=== PATIENT | female | born 1970 | race Caucasian/White ===

== ENCOUNTER → 2023-11-13 08:57 | Outpatient (REF) | payer BC, SELFPAY | LOC: RCS 08:57 | PROVIDERS: ATTENDING PHYSICIAN Internal Medicine | DX: I10 Essential (primary) hypertension (principal); R06.02 Shortness of breath | CPT/HCPCS: 93306 ==

== ENCOUNTER → 2023-11-18 09:03 | Outpatient (REF) | payer BC, SELFPAY | LOC: RSP 09:03 | PROVIDERS: ATTENDING PHYSICIAN Internal Medicine | DX: R06.02 Shortness of breath (principal) | CPT/HCPCS: 94727; 94729; 88738; 94010 ==

== ENCOUNTER → 2023-12-31 11:10 | Outpatient (REF) | payer BC, SELFPAY | LOC: RAD 11:10 | PROVIDERS: ATTENDING PHYSICIAN Obstetrics & Gynecology; FAMILY PHYSICIAN Internal Medicine | DX: N83.8 Other noninflammatory disorders of ovary, fallopian tube and broad ligament (principal); K46.9 Unspecified abdominal hernia without obstruction or gangrene | CPT/HCPCS: 74177; Q9967 ==

== ENCOUNTER → 2024-01-01 08:25 | Outpatient (REF) | payer BC, SELFPAY ==
[2024-01-01 09:18] LABS: % Basophils 0.5 % (0-2); % Eosinophils 2.7 % (0-6); % Immature Granulocytes 0.4 % (0-0.5); % Monocytes 7.6 % (1.7-9.3); % Neutrophils 60.8 % (42.2-75.2); Absolute Eosinophils 0.2 10^3/uL (0-0.7); Absolute Lymphocytes 2.2 10^3/uL (1.2-3.4); Absolute Monocytes 0.6 10^3/uL (0.1-0.6); Absolute Neutrophils 4.7 10^3/uL (1.4-6.5); Hematocrit 40.6 % (37.0-47.0); Hemoglobin 13.6 g/dL (12.0-16.0); Mean Corp Hgb Conc. 33.5 g/dL (33.0-37.0); Mean Corpuscular Hgb 30.2 pg (27.0-31.0); Mean Corpuscular Volume 90.2 fL (81.0-99.0); Mean Platelet Volume 10.4 fL (7.4-10.4); Nucleated Red Blood Cells % 0 %; Platelet Count 197 10^3/uL (130-400); Red Cell Dist. Width 13.1 % (11.5-14.5); White Blood Cell Count 7.8 10^3/uL (4.8-10.8)
[2024-01-01 09:27] LABS: Urine Albumin Trace (Neg - Trace); Urine Bilirubin Negative (Negative); Urine Character Clear (Clear); Urine Color Yellow; Urine Glucose Negative (Negative); Urine Ketone Negative (Negative); Urine Leukocyte 1+ (Negative); Urine Nitrite Negative (Negative); Urine Occult Blood 2+ (Negative); Urine Urobilinogen Negative (Neg - 1+)
[2024-01-01 09:41] LABS: Urine Squamous Cell 16-20 /LPF (Few)
[2024-01-01 09:43] LABS: Urine Bacteria Few (Negative); Urine White Cell 16-20 /HPF (0-5)
[2024-01-01 09:59] LABS: ALT (SGPT) 17 U/L (0-35); AST (SGOT) 22 U/L (14-36); Alkaline Phosphatase 158 U/L (38-126); Blood Urea Nitrogen 18 mg/dl (7-17); Calcium 9.6 mg/dl (8.4-10.2); Carbon Dioxide 28 mmol/L (22-30); Chloride 107 mmol/L (98-107); Glucose 131 mg/dl (70-99); Potassium 4.1 mmol/L (3.5-5.1); Sodium 140 mmol/L (135-145); Total Bilirubin 0.3 mg/dl (0.2-1.3); Total Protein 6.8 g/dl (6.3-8.2); eGFR > 60.00
== END ==
LOC: REG 08:25
PROVIDERS: ATTENDING PHYSICIAN Internal Medicine
DX: N20.0 Calculus of kidney (principal); N13.30 Unspecified hydronephrosis
CPT/HCPCS: 36415; 80053; 81003; 81015; 85025; 87086

== ENCOUNTER 2024-01-08 05:20 | Inpatient (IN) | payer BC, SELFPAY ==
[2024-01-07 22:42] VITALS: BP 180/114
[2024-01-07 22:59] LABS: % Basophils 0.4 % (0-2); % Eosinophils 1.3 % (0-6); % Immature Granulocytes 0.3 % (0-0.5); % Lymphocytes 12.7 % (20.5-51.1); % Monocytes 5.4 % (1.7-9.3); % Neutrophils 79.9 % (42.2-75.2); Absolute Basophils 0.1 10^3/uL (0-0.2); Absolute Eosinophils 0.2 10^3/uL (0-0.7); Absolute Lymphocytes 1.6 10^3/uL (1.2-3.4); Absolute Monocytes 0.7 10^3/uL (0.1-0.6); Absolute Neutrophils 10.1 10^3/uL (1.4-6.5); Hematocrit 37.7 % (37.0-47.0); Hemoglobin 13.5 g/dL (12.0-16.0); Mean Corp Hgb Conc. 35.8 g/dL (33.0-37.0); Mean Corpuscular Hgb 30.3 pg (27.0-31.0); Mean Corpuscular Volume 84.5 fL (81.0-99.0); Nucleated Red Blood Cells % 0 %; Platelet Count 219 10^3/uL (130-400); Red Blood Cell Count 4.46 10^6/uL (4.20-5.40); Red Cell Dist. Width 12.8 % (11.5-14.5); White Blood Cell Count 12.6 10^3/uL (4.8-10.8)
[2024-01-07 23:26] LABS: ALT (SGPT) 22 U/L (0-35); AST (SGOT) 27 U/L (14-36); Albumin 4.5 g/dl (3.5-5.0); Alkaline Phosphatase 127 U/L (38-126); Blood Urea Nitrogen 18 mg/dl (7-17); Calcium 9.5 mg/dl (8.4-10.2); Carbon Dioxide 25 mmol/L (22-30); Chloride 104 mmol/L (98-107); Glucose 163 mg/dl (70-99); Sodium 136 mmol/L (135-145); Total Bilirubin 0.7 mg/dl (0.2-1.3); Total Protein 7.5 g/dl (6.3-8.2); eGFR > 60.00
--- NOTE | 2024-01-08 00:22 | ED.GENMED ---
History of Present Illness
<NELSY Perez - Last Filed: 01/08/24 00:41>
General
Chief Complaint: Abdominal Pain
Source: patient
Exam Limitations: none
Time Seen by Provider: 01/07/24 23:19
Nursing documentation reviewed up to this point in time: agreed with
Travel History
Have you had any contact with someone who has COVID-19?: No
Do you have any symptoms of coronavirus? Fever > 100 degrees, chills, cough, shortness of breath, sore throat, loss of taste or smell, muscle aches, or headache?: No
History of Present Illness
History of Present Illness:
This is a 53 year old female with history of HTN, DM, Hypothyroid, endometriosis who presents to the ED with complaint of RUQ abdominal pain x1 day. Patient reports intermittent sharp RUQ abdominal pain that radiates to epigastric pain. She also
reports chills and a fever tmax 100.6 degrees F PO taken at home. She has associated mild nausea, no vomiting or diarrhea. She has a known endometrioma on R ovary that is being monitored for several years and is known to be increasing in size. She
had a recent abdomen/pelvis CT n 12/31/23 that should an incidental 1.9 x 1.6cm calculus at the right ureteropelvic junction causing severe right hydronephrosis. She was seen by urologist on Wednesday and was given Ciprofloxacin to take prior to
scheduled procedure next week. Today, her RUQ abdominal pain, fever/chills, and nausea began prompting her to come in. She denies SOB, CP, headache, urinary symptoms. LMP was 2 years ago (menopause). Last BM was yesterday.
Past History
<NELSY Perez - Last Filed: 01/08/24 00:41>
Past History
ED Past Medical History: HTN, NIDDM and Hypothyroidism
ED Past Surgical History: None
Social History
Tobacco: Non-smoker
Alcohol: None
Drug: None
Living: with family
Employment: Employed
Review of Systems
<NELSY Perez - Last Filed: 01/08/24 00:41>
Review of Systems
Allergies reviewed?: Yes
All Other Systems: Not applicable
Constitutional: Reports fever (100.6 degree F PO) and fatigue
EENT: Reports no symptoms
Respiratory: Reports no symptoms
Cardiac: Reports no symptoms
ABD/GI: Reports abdominal pain (RUQ) and nausea
: Reports no symptoms
Musculoskeletal: Reports no symptoms
Skin: Reports no symptoms
Neurological: Reports no symptoms
Endocrine: Reports no symptoms
Hematologic/Lymphatic: Reports no symptoms
Psychiatric: Reports no symptoms
Phy Exam
<NELSY Perez - Last Filed: 01/08/24 00:41>
General Physical Exam
General Presentation: well appearing and no apparent distress
General Skin: warm and dry
General Habitus: normal
General Mental: alert
General Hydration: appears well hydrated
ENT Exam
ENT Exam: EOMI, pharynx normal, neck supple and normocephalic
Eye Exam
Eye Exam: PERRL, cornea clear and conjunctiva normal
Cardiovascular Exam
Cardiovascular Exam: regular rate/rhythm, no edema, no murmur and normal peripheral pulses
Pulmonary Exam
Pulmonary Exam: lungs clear, no respiratory distress, no rales, no crackles, no rhonchi, no stridor, no wheezing and no cough
Gastrointestinal Exam
Gastrointestinal Exam: normal bowel sounds, soft, no organomegaly, no pulsatile mass, non distended, no cva tenderness, surgical scar and other (Umbilical hernia )
Palpation: right upper quadrant: Moderate tenderness
Auscultation of Abdomen: normal
Neurological Exam
Neurological Exam: alert, oriented x3, no motor deficits and speech normal
Musculoskeletal Exam
Musculoskeletal Exam: full ROM and no edema
Skin Exam
Skin Exam: normal color, warm/dry, no rash and no petechia
Psychiatric Exam
Psychiatric Exam: normal mood/affect
Course
<NELSY ePrez - Last Filed: 01/08/24 00:41>
Orders/Labs/Results
Orders:
Orders
01/07/24 22:48
Urinalysis Reflex To Culture Urgent
Date Specimen was Collected: 01/07/24
Time Specimen was Collected: 22:48
01/07/24 22:53
Complete Blood Count/With Diff Urgent
Comprehensive Metabolic Panel Urgent
Lipase Urgent
Comment: ADD ON
01/08/24 00:09
Add On- LAB Urgent
Tests Added?: lipase
01/08/24 00:16
Urine Microscopic Reflex Cult Urgent
Urine Culture Urgent
LANA Source: U
Specimen Description:
Date Specimen was Collected: 01/07/24
Time Specimen was Collected: 22:48
01/08/24 00:20
0.9% Sodium Chloride 1000 ml [Nss] 1,000 ml IV BOLUS
HYDROmorphone [Dilaudid] 1 mg IV NOW STA
Ondansetron Injectable [Zofran] 4 mg IV NOW STA
01/08/24 00:38
Lactic Acid Urgent
Blood Culture Q30M
LANA Source: Blood/Venous
Specimen Description:
01/08/24 00:41
Blood Culture Q30M
LANA Source: Blood/Venous
Specimen Description:
01/08/24 01:27
CT Abd/pelvis W Iv Cont Urgent
Comment:
Reason For Exam: RUQ, R lat flank pain w fever
Abnormal Lab Results
01/07/24 01/08/24
22:53 00:16
WBC 12.6 H 10^3/uL
(4.8-10.8)
Absolute Neuts (auto) 10.1 H 10^3/uL
(1.4-6.5)
Absolute Monos (auto) 0.7 H 10^3/uL
(0.1-0.6)
Neutrophils % 79.9 H %
(42.2-75.2)
Lymphocytes % 12.7 L %
(20.5-51.1)
BUN 18 H mg/dl
(7-17)
Glucose 163 H mg/dl
(70-99)
Alkaline Phosphatase 127 H U/L
(38-126)
Ur Occult Blood Reflex 2+ A
(Negative)
Leukocyte Esterase Rfl Trace A
(Negative)
Urine RBC 11-15 A /HPF
(0-2)
Urine WBC (Reflex) 30-40 A /HPF
(0-5)
Urine Bacteria (Reflex) Few A
(Negative)
01/07/24 22:53
01/07/24 22:53
Vital Signs
Initial and Last Documented VS:
Initial Vital Signs
Temp Pulse Resp BP Pulse Ox
99.5 F 110 18 180/114 98
01/07/24 22:42 01/07/24 22:42 01/07/24 22:42 01/07/24 22:42 01/07/24 22:42
Last Documented Vital Signs
Temp Pulse Resp BP Pulse Ox
99.5 F 110 18 180/114 98
01/07/24 22:42 01/07/24 22:42 01/07/24 22:42 01/07/24 22:42 01/07/24 22:42
Maureenlt;Zofia Dallas DO - Last Filed: 01/08/24 04:06>
Orders/Labs/Results
Orders:
Orders
01/07/24 22:48
Urinalysis Reflex To Culture Urgent
Date Specimen was Collected: 01/07/24
Time Specimen was Collected: 22:48
01/07/24 22:53
Complete Blood Count/With Diff Urgent
Comprehensive Metabolic Panel Urgent
Lipase Urgent
Comment: ADD ON
01/08/24 00:09
Add On- LAB Urgent
Tests Added?: lipase
01/08/24 00:16
Urine Microscopic Reflex Cult Urgent
Urine Culture Urgent
LANA Source: U
Specimen Description:
Date Specimen was Collected: 01/07/24
Time Specimen was Collected: 22:48
01/08/24 00:20
0.9% Sodium Chloride 1000 ml [Nss] 1,000 ml IV BOLUS
HYDROmorphone [Dilaudid] 1 mg IV NOW STA
Ondansetron Injectable [Zofran] 4 mg IV NOW STA
01/08/24 00:38
Lactic Acid Urgent
Blood Culture Q30M
LANA Source: Blood/Venous
Specimen Description:
01/08/24 00:41
Blood Culture Q30M
LANA Source: Blood/Venous
Specimen Description:
01/08/24 01:27
CT Abd/pelvis W Iv Cont Urgent
Comment:
Reason For Exam: RUQ, R lat flank pain w fever
Abnormal Lab Results
01/07/24 01/08/24
22:53 00:16
WBC 12.6 H 10^3/uL
(4.8-10.8)
Absolute Neuts (auto) 10.1 H 10^3/uL
(1.4-6.5)
Absolute Monos (auto) 0.7 H 10^3/uL
(0.1-0.6)
Neutrophils % 79.9 H %
(42.2-75.2)
Lymphocytes % 12.7 L %
(20.5-51.1)
BUN 18 H mg/dl
(7-17)
Glucose 163 H mg/dl
(70-99)
Alkaline Phosphatase 127 H U/L
(38-126)
Ur Occult Blood Reflex 2+ A
(Negative)
Leukocyte Esterase Rfl Trace A
(Negative)
Urine RBC 11-15 A /HPF
(0-2)
Urine WBC (Reflex) 30-40 A /HPF
(0-5)
Urine Bacteria (Reflex) Few A
(Negative)
01/07/24 22:53
01/07/24 22:53
Vital Signs
Initial and Last Documented VS:
Initial Vital Signs
Temp Pulse Resp BP Pulse Ox
99.5 F 110 18 180/114 98
01/07/24 22:42 01/07/24 22:42 01/07/24 22:42 01/07/24 22:42 01/07/24 22:42
Last Documented Vital Signs
Temp Pulse Resp BP Pulse Ox
99.5 F 110 18 180/114 98
01/07/24 22:42 01/07/24 22:42 01/07/24 22:42 01/07/24 22:42 01/07/24 22:42
Maureenlt;NELSY Perez - Last Filed: 01/08/24 00:41>
MDM/Problems Addressed
Differential Diagnosis Includes:
Hydronephrosis secondary to calculus, pyelonephritis, cholecystitis, pancreatitis, appendicitis, ovarian cyst rupture, endometrioma
Cholecystitis considered due to RUQ pain, fever, and elevated WBC. However, she does not have a known history of gallstones. Pancreatitis considered for similar reasons. Appendicitis considered due to abdominal pain and fever, however pain is more
upper right rather than lower right. Ovarian cyst rupture considered but less likely. Endometrioma seen on CT scan and has been being monitored for years, which is not typical to cause sudden onset of abdominal pain. I suspect pain is due to
hydronephrosis secondary to 1.9 x 1.6cm calculus seen on the right kidney. Will obtain lipase and abdomen/pelvis CT for further evaluation.
<Zofia Dallas DO - Last Filed: 01/08/24 04:06>
*Radiology
Radiology exam reviewed: radiology read reviewed
*Pulse Oximetry
Patient hypoxic: no
*Critical Care Note
Total Time (30-74mins, 75-104mins- exclusive of procedures): Not Applicable
ED Attending Note
<NELSY Perez - Last Filed: 01/08/24 00:41>
-
Portions of this chart may have been created with voice recognition software.� Occasional wrong word or��sound alike� substitutions may have occurred due to the inherent limitations of voice recognition software.
<Zofia Dallas DO - Last Filed: 01/08/24 04:06>
ED Attending Note
Patient seen and examined by attending physician: Yes
I performed the substantive portion of visit, reviewed & personally made and approve the management plan that is documented in note by myself or TOSHIA.: Yes
I performed a history and physical exam of patient and discussed management with resident, I reviewed resident's note and agree with documented findings and plan of care.: Yes
ED Attending Note:
This is a 53-year-old woman who has history of hypertension, ooh-pipemeb-ynobskxzn diabetes, hypothyroidism along with history of endometriosis and known right ovarian mass/endometrioma that has been followed with serial imaging over the past
several years.
On most recent imaging 1 week ago, CT abdomen and pelvis again demonstrated enlarged fibroid uterus, bilateral ovarian enlargement with complex cystic mass on the right but also notes a large obstructing calculus at UPJ on the right with moderate
hydronephrosis. There is also note of a large, bowel containing umbilical hernia without obstruction nor inflammation.
Patient has had some intermittent right flank pain over the past several weeks which she attributed to 'a pulled muscle' from exercising.
Since that CAT scan she has been evaluated by urology, Dr. Oneal, and is scheduled for kidney stone removal January 16. A prescription for Cipro was provided during that office visit with plans to start this in 1 week's time, next Wednesday.
Today however she developed a fever, chills and moderate right upper lateral abdominal pain. She did take 1 dose of Cipro this evening. She called her PCP and sent to the ED for further evaluation.
She denies dysuria and urgency and or hematuria but does admit that her urine has been 'Somewhat dirty' persistently over the past several months, positive for white blood cells, red blood cells as well as bacteria. She has remained asymptomatic
and has not been prescribed antibiotics.
She is menopausal since 2021.
GENERAL: 53-year-old woman appears her stated age, awake and alert, pleasant, appears in no acute distress. Low-grade fever noted.
EYE: anicteric
NECK: Supple, nontender, no meningismus, no significant adenopathy.
ENT: oral mucosa is moist. No rhinorrhea.
CARDIAC: Regular rate and rhythm. no murmur.
LUNGS: Clear breath sounds bilaterally, no acute respiratory distress, no wheezes/rales/rhonchi
ABDOMEN: Rotund, soft, nondistended, exquisite tenderness right lateral upper quadrant as well as mild tenderness right upper quadrant, mild generalized abdominal discomfort and mild to moderate tenderness infraumbilical region over palpably firm
moderate-sized abdominal wall hernia that is moderately tender to palpation, not reducible. No rigidity nor rebound. No guarding. No cvat. normoactive BS.
NEUROLOGICAL: Alert and oriented x3, no focal neuro deficits.
SKIN: Mildly hot to touch and dry, normal color, skin intact. No rash.
MUSCULOSKELETAL: No C/C/E. peripheral pulses are full and equal b/l. No palpable tenderness.
PSYCH: Normal and appropriate interaction.
Concern for right pyelonephritis related to obstructive uropathy and with fever, concern for early sepsis.
Other consideration is small bowel obstruction, incarcerated abdominal wall hernia, cholecystitis, pancreatitis.
Labs show mildly elevated white blood cell count of 12.6, mild left shift. Chemistries show minimally elevated BUN of 18, mildly elevated random glucose of 163. LFTs within normal limits. Will add lipase.
Urinalysis is pending.
Will medicate for pain, initiate IV fluids, will check lactic acid, blood cultures and will check CT abdomen and pelvis.
01/08/[address] appears overall similar to previous CT December 3. Unchanged 19 x 9 mm right UPJ calculus with moderate right hydronephrosis and delayed nephrogram. No convincing evidence of pyelonephritis on CT however with significant right lateral flank pain,
fever, leukocytosis, urinalysis with moderate WBCs, bacteria highly suspicious for pyelonephritis with obstructing/infected large UPJ stone.
Other findings on CAT scan, similar and unchanged include a moderate ventral hernia containing nonobstructing transverse colon. Fibroid uterus. Nonspecific free fluid in the pelvis.
IV antibiotics initiated and will plan to admit to hospitalist service with consult with urology.
Discharge Plan
Departure
Patient Disposition: Admit
Date of Disposition: 01/08/24
Time of Disposition: 03:59
Admit to: Med/Surg
Admit to doctor: Rocky
Presentation/result/management discussed w/ accepting MD/DO: Hospitalist
Condition: Fair
Discharge Problem:
Acute pyelonephritis, Right UPJ stone with hydronephrosis, acute fever r/o sepsis
Prescriptions:
No Action
multivitamin 1 EACH tablet
1 tab PO DAILY
losartan 50 MG tablet
50 mg PO DAILY
aspirin [Aspir-Low] 81 MG tablet,delayed release (DR/EC)
81 mg PO DAILY
levothyroxine 100 MCG tablet
100 mcg PO DAILY
ascorbic acid (vitamin C) [Vitamin C] 500 MG tablet
1,000 mg PO BID
metformin 500 MG tablet extended release 24 hr
2,000 mg PO .@DINNER
cholecalciferol (vitamin D3) 2,000 UNIT tablet
2,000 unit PO DAILY
Referrals:
Marisa Stone MD [Family Provider] -
Interventions
Interventions:
*Risk Screen - Suicide Last Done: 01/07/24 22:42
*General Assessment Last Done: 01/07/24 22:42
*Neglect/Abuse Screening Last Done: 01/07/24 22:42
*ED COVID-19 Vaccine History Last Done: 01/08/24 00:58
ZA-Dooezz-Brpzlilbcb Assessment Last Done: 01/08/24 00:58
Discharge Date and Time
Print Language: ICELANDIC
[2024-01-08 00:40] LABS: Urine Albumin Trace (Neg - Trace); Urine Bilirubin Negative (Negative); Urine Character Clear (Clear); Urine Color Yellow; Urine Glucose Negative (Negative); Urine Ketone Negative (Negative); Urine Leukocyte Trace (Negative); Urine Nitrite Negative (Negative); Urine Occult Blood 2+ (Negative); Urine Urobilinogen Negative (Neg - 1+)
[2024-01-08 00:41] LABS: Lipase 270 U/L (23-300)
[2024-01-08] MEDS: ZOFRAN 4 MG IV (00:47)
[2024-01-08] MEDS: DILAUDID 1 MG IV (00:47)
[2024-01-08] MEDS: NSS 1000 IV ×2 (00:48→04:09)
[2024-01-08 00:58] VITALS: BP 156/92; BMI 44.0
[2024-01-08 02:48] LABS: Urine Squamous Cell 16-20 /LPF (Few); Urine White Cell 30-40 /HPF (0-5)
[2024-01-08 02:49] LABS: Urine Bacteria Few (Negative)
[2024-01-08] MEDS: ROCEPHIN 1000 MG IV (04:04)
[2024-01-08] MEDS: DILAUDID 0.5 MG IV (04:10)
--- NOTE | 2024-01-08 04:11 | HPS.HSE ---
Family Physician
-
Family Physician: Marisa Stone
Chief Complaint
-
Fever and right-sided flank pain
History of Present Illness
This is a 53-year-old female with past medical history of hypothyroidism hypertension and diabetes as well as obesity who comes into the emergency admitted with fevers and flank pain.
Approximately 1 week ago she was diagnosed with obstructive urolithiasis. She 0.9 cm x 1.6 cm right UVP stone with hydronephrosis. She was seen by urology has a planned procedure January 24. Patient is been doing well otherwise. She denies any
nausea or vomiting. However today she started having fever and measured a temp of 101.5 at home. She also reports increased right groin and right flank pain.
Intermittent burning temp of 100.1 max, she was hypertensive to 180/110 and tachycardic to 110. Oxygen saturation was normal. She had leukocytosis of 12,600 with a normal hemoglobin and platelet counts. Chemistries were all within normal limits.
Lactic acid was 2.0. A CT of the abdomen pelvis showed a 1.9 x 0.9 cm right CVP obstructing stone with moderate hydronephrosis.
Medical History
Past Medical History
Past Medical History: Reports HTN, Hypothyroidism and NIDDM
Additional Past Medical History:
Nephrolithiasis
Past Surgical History: Reports None
Social History
Tobacco: Non-smoker
Alcohol: None
Drug: None
Personal:
Living: With Family
Employment: Not Employed
Family History
Family History: Not pertinent
Allergies / Home Medications
Allergies reflects when Allergies were last updated in [employer].
Home Medications with original date entered in [employer]
Allergy/Medication List:
Allergies
Allergy/AdvReac Type Severity Reaction Status Date / Time
No Known Allergies Allergy Verified 08/04/20 20:49
Home Medications
ascorbic acid (vitamin C) 500 mg tablet (Vitamin C) 1,000 mg PO BID 08/04/20
aspirin 81 mg tablet,delayed release (Aspir-Low) 81 mg PO DAILY 08/04/20
cholecalciferol (vitamin D3) 50 mcg (2,000 unit) tablet 2,000 unit PO DAILY 08/04/20
levothyroxine 100 mcg tablet 100 mcg PO DAILY 08/04/20
losartan 50 mg tablet 50 mg PO DAILY 08/04/20
metformin 500 mg tablet,extended release 24 hr 2,000 mg PO .@DINNER 08/04/20
multivitamin 1 tab PO DAILY 08/04/20
Review of Systems
-
History Source: Patient
Constitutional: Reports Fever
Respiratory: Reports No Symptoms
Cardiac: Reports No Symptoms
Abdomen/GI: Reports Abdominal Pain
: Reports Flank Pain
Musculoskeletal: Reports No Symptoms
Skin: Reports No Symptoms
Neurological: Reports No Symptoms
Endocrine: Reports No Symptoms
Hematologic/Lymphatic: Reports No Symptoms
Psych: Reports No Symptoms
Physical Exam
Vital Signs
Vital Signs
Temp Pulse Resp BP Pulse Ox
99.5 F 110 18 180/114 98
01/07/24 22:42 01/07/24 22:42 01/07/24 22:42 01/07/24 22:42 01/07/24 22:42
Physical Exam
General: Well Developed, Well Nourished and Appears in Distress
HEENT: NormoCephalic, Anicteric, Moist mucous membranes and Atraumatic
Respiratory: Clear
Cardiac: S1/S2 and Regular Rhythm
Breast: Deferred by me
GI: Soft, Non Distended and Normal Bowel Sounds
Rectal: Deferred by Provider
Genito-urinary: Costovertebral angle tend
Musculoskeletal: No Clubbing, No Cyanosis and No Edema
Skin: Warm
Neuro: AO x 3
Hematologic/Lymphatic: No Lymphadenopathy
Psych: Calm
Laboratory Results
-
01/07/24 22:53
01/07/24:53
Laboratory Results
Lactic Acid 2.0 mmol/L (0.7-2.0) 01/08/24 00:38
Total Bilirubin 0.7 mg/dl (0.2-1.3) 01/07/24:53
AST 27 U/L (14-36) 01/07/24:53
ALT 22 U/L (0-35) 01/07/24:53
Alkaline Phosphatase 127 U/L (38-126) H 01/07/24:53
Lipase 270 U/L (23-300) 01/07/24:
Data Reviewed
-
CT Scan: Report Reviewed by me
Lab Data: Labs Reviewed by me
Old Records: Reviewed
Impression/Plan
-
IMPRESSION:
PLAN:
1. Infected Kidney stone - Patient with known obstructing stone in the right UPJ (1.9 x [address]) coming in with fever. Febrile to 101.5 at home and 100.1 here. U/A positive but with squamos cells. She has leukocytosis. Lactic acid
normal. Hypertensive and hemodynamically stable. Renal function is stable.
- admit to med/surg
- blood and urine cultures sent
- continue ceftriaxone 1g IV daily for now (h/o non-complicated uti tx with oral meds in the past)
- urology consultation for early decompression and stone removal given infection
- npo for now
- pain control with oral tyelnol, iv toradol and prn dilaudid
- maintenance fluids
2. HTN
- continue losartan 50
3. DM II
- hold metformin for now
- insulin sliding scale q 6 hours
4 Hypothyroid
- continue synthroid
DVT PPX - lovenox sq
Full Code
[2024-01-08] MEDS: TORADOL 15 MG IV (04:53)
--- NOTE | 2024-01-08 05:42 | CONS.URO ---
Medical History
History of Present Illness
53 year old female presents to the ED with complaint of RUQ abdominal pain x1 day.. She also reports chills and a fever tmax 100.6 degrees F PO taken at home. She has associated mild nausea, no vomiting or diarrhea. Recent Abdomen/pelvis CT ON
12/31/23: 1.9 x 1.6cm calculus at the right ureteropelvic junction causing severe right hydronephrosis. She was seen by Dr Oneal on Wednesday with elective Right Ureteroscopy planned for 01/17/24. nO OUTPATIENT URINE CX WAS PERFORMED THOUGH THE
PATIENT WAS INITIATED ON PO ABX.
Past Medical History
Past Medical History: Other (Morbid obesity, DM2 - Dr. Villatoro, Microalbuminuria, Hypertension, Symptomatic PVCs - Holter 03/2022, Hypothyroidism, Thyroid nodule, Depression, lexapro in the past, PCOS, dx 1999, Endometriosis, History of iron
deficiency anemia in setting of menorrhagia, ?von Willebrand disease, testing equivo)
Past Surgical History: Other (Arthroscopic left knee surgery, torn meniscus repair - 01/2018, Dr. Boone , LASIK , Endometrioma, exploratory laparotomy - 2004 , section - 2000 )
Social History
Unable to obtain full social history at this time due to: Other ()
Family History
Family History: Other ( Father: CLL. Mother: HL, HTN, CAD s/p NV at 57 y.o., Hypothyroidism. Paternal Grand Mother: Uterine cancer. Maternal Grand Father: COPD - smoker. Maternal Grand Mother: Diagnosis:Cancer, Breast. Paternal aunt: Liver
cancer, Thyroid and another neck malignancy. Maternal aunt: Breast cancer at )
Allergies/Home Medications
Allergies
Allergy/AdvReac Type Severity Reaction Status Date / Time
No Known Allergies Allergy Verified 08/04/20 20:49
Home Medications
�Medication �Instructions �Recorded �Confirmed �Type
ascorbic acid (vitamin C) 500 mg 1,000 mg PO BID 08/04/20 08/04/20 History
tablet (Vitamin C)
aspirin 81 mg tablet,delayed 81 mg PO DAILY 08/04/20 08/04/20 History
release (Aspir-Low)
cholecalciferol (vitamin D3) 50 2,000 unit PO DAILY 08/04/20 08/04/20 History
mcg (2,000 unit) tablet
levothyroxine 100 mcg tablet 100 mcg PO DAILY 08/04/20 08/04/20 History
losartan 50 mg tablet 50 mg PO DAILY 08/04/20 08/04/20 History
metformin 500 mg tablet,extended 2,000 mg PO .@DINNER 08/04/20 08/04/20 History
release 24 hr
multivitamin 1 tab PO DAILY 08/04/20 08/04/20 History
Physical Exam
Vital Signs
Vital Signs
Temp Pulse Resp BP Pulse Ox
98.8 F 98 19 156/92 97
01/08/24 00:58 01/08/24 00:58 01/08/24 00:58 01/08/24 00:58 01/08/24 00:58
Lab / Testing Results
Laboratory Results
01/07/24 22:53
01/07/24 22:53
Physical Exam
adult female on ED bed
morbidly obese
General: No Apparent Distress
Neuro: Awake and Alert
Psych: Calm
Assessment / Plan
-
Right UPJ stone with chronic obstruction
slightly elevated WBC but no other objective evidence of systemic infection
HD stable
Plan:
will post for OR to f/u emergency case; cysto/stone dislodgement/stenting; consent signed [ present]
case d/w nursing optical instruments supervisor
Data Reviewed
-
CT Scan: Image personally visualized and interpreted (18 mm Right UPJ stone with chronic obstruction; no left renal stones; Large upper pole left renal cyst), Discussed with Patient and Discussed with Family
Lab Data: Labs Reviewed and Discussed with Patient
Old Records: Reviewed
[2024-01-08 06:00] VITALS: BMI 43.0
[2024-01-08 06:32] VITALS: BP 126/61
[2024-01-08] MEDS: 0.45%NACL 1000 IV (07:03)
--- NOTE | 2024-01-08 07:14 | PTCARENOTE ---
Pt arrived onto floor @0618. Pt AAOx3 and able to walk into room with minimal assistance. Pt oriented to room and call ayers, will continue to monitor.
[2024-01-08 07:30] VITALS: BP 120/66
--- NOTE | 2024-01-08 07:55 | W.PN.HOSP.TC ---
Today's Communication/Plan
-
Okay for diet on 01/08/24, but NPO after midnight for urology OR on January 09, 2024
Continue antibiotics
Assessment / Plan
Assessment / Plan
Physical Exam
General: Not in acute distress
HEENT: Normocephalic
Respiratory: Clear to Auscultation Bilaterally
Cardiac: S1/S2 and Regular Rhythm
GI: Soft, Non Distended and Normal Bowel Sounds
Musculoskeletal: No Cyanosis and No Edema
Skin: Warm. Dry.
Neuro: AAO x 3
Psych: Calm

Assessment/Plan
#Infected Kidney stone - Patient with known obstructing stone in the right UPJ (1.9 x 0[address]) coming in with fever.
#Fever
- Continue to monitor
- blood and urine cultures sent -- follow-up
- continue ceftriaxone 1g IV daily for now (h/o non-complicated uti tx with oral meds in the past)
- urology consultation for early decompression and stone removal given infection
- Okay for diet for January 08, 2024, but NPO after midnight (NPO starting 12 am on January 09, 2024) for urology surgery on January 08, 2024
- pain control with oral tyelnol, iv toradol and prn dilaudid
- maintenance fluids
#Hypertension
- continue losartan 50
#DM II
- hold metformin for now
- insulin sliding scale q 6 hours
#Hypothyroid
- continue synthroid
DVT PPx - lovenox sq
Full Code
Anticipated Discharge: 24 - 48 hours
Subjective/Interval History
-
Date of Service: January 08, 2024
Patient was seen and examined. She reported some abdominal tenderness, but pain appeared to be under control, she is wondering if she can eat.
Objective Data
-
Labs:
Laboratory Results
01/07/24
22:53
WBC 12.6 H
Hgb 13.5
Hct 37.7
Plt Count 219
Sodium 136
Potassium 4.0
Chloride 104
Carbon Dioxide 25
BUN 18 H
Creatinine 0.8
Glucose 163 H
Calcium 9.5
Total Bilirubin 0.7
AST 27
ALT 22
Alkaline Phosphatase 127 H
Vital Signs:
Vital Signs
Temp Pulse Resp BP Pulse Ox
97.7 F 64 18 126/61 97
01/08/24 06:32 01/08/24 06:32 01/08/24 06:32 01/08/24 06:32 01/08/24 06:32
[2024-01-08] MEDS: COZAAR 50 MG PO (08:28)
[2024-01-08 08:30] LABS: Glucose - Point of Care 136 mg/dl (70-99)
[2024-01-08 12:22] LABS: Glucose - Point of Care 139 mg/dl (70-99)
--- NOTE | 2024-01-08 12:28 | W.PN.UPDATE ---
Update Note
Progress Note Update
pt remains clinically stable
[2024-01-08 15:40] VITALS: BP 161/86
[2024-01-08 16:23] LABS: Glucose - Point of Care 118 mg/dl (70-99)
[2024-01-08] MEDS: LOVENOX 40 MG SC (17:21)
[2024-01-08 23:04] VITALS: BP 162/76
[2024-01-09] VITALS (7 sets, daily range): BP systolic 103–158; BP diastolic 62–78
[2024-01-09 00:16] LABS: Glucose - Point of Care 109 mg/dl (70-99)
[2024-01-09] MEDS: 0.45%NACL 1000 IV (05:14)
[2024-01-09] MEDS: STERILE WATER FOR INJECTION 10 ML IV (05:14)
[2024-01-09] MEDS: ROCEPHIN 1000 MG IV (05:14)
[2024-01-09 06:19] LABS: Glucose - Point of Care 130 mg/dl (70-99)
[2024-01-09 07:53] LABS: INR 1.14; PT 14.5 Sec (11.4-14.6)
--- NOTE | 2024-01-09 07:54 | W.SUR.PREOP ---
Pre-Operative Surgical Note
-
Patient has remained HD stable.
Blood cx: no growth
Urine cx: pending
[results are likely compromised by patient's having taking po abx prior to presentation to hospital]
Plan: OR today for ureteral stenting
[2024-01-09 07:58] LABS: Hematocrit 36.7 % (37.0-47.0); Hemoglobin 12.5 g/dL (12.0-16.0); Mean Corp Hgb Conc. 34.1 g/dL (33.0-37.0); Mean Platelet Volume 10.1 fL (7.4-10.4); Platelet Count 172 10^3/uL (130-400); Red Blood Cell Count 4.17 10^6/uL (4.20-5.40); White Blood Cell Count 8.1 10^3/uL (4.8-10.8)
[2024-01-09 08:18] LABS: Blood Urea Nitrogen 11 mg/dl (7-17); Calcium 9.2 mg/dl (8.4-10.2); Carbon Dioxide 28 mmol/L (22-30); Chloride 105 mmol/L (98-107); Estimated Creatinine Clearance 100 ml/min; Glucose 124 mg/dl (70-99); Potassium 4.4 mmol/L (3.5-5.1); Sodium 138 mmol/L (135-145); eGFR > 60.00
[2024-01-09] MEDS: COZAAR PO ×2 (08:23→10:03)
[2024-01-09 08:38] LABS: Glucose - Point of Care 141 mg/dl (70-99)
--- NOTE | 2024-01-09 10:41 | W.IMMPOSTOP ---
Surgical Immed Post Op Note
-
Primary Surgeon: Dino
Pre-op Diagnosis: Right Renal Pelvic Stone, obstructing; UTI
Post-op Diagnosis: same
Procedure Performed: Cysto, stone dislodgement, stenting
Anesthesia Type: gen
Specimen / Cultures: none
Estimated Blood Loss: negligible
Complications: none
Operative Findings:
1. ~ 20 mm right renal pelvic stone
2. debris-laden urine released upon relief of obstruction
Tubes: 6 Fr 24 cm Right JJ stent
d/w Brandon immediately post-op via phone
[2024-01-09 11:05] LABS: Glucose - Point of Care 134 mg/dl (70-99)
[2024-01-09 12:04] LABS: Glucose - Point of Care 137 mg/dl (70-99)
--- NOTE | 2024-01-09 13:14 | W.PN.HOSP.TC ---
Today's Communication/Plan
-
Discharge today
Assessment / Plan
Assessment / Plan
Physical Exam
General: Not in acute distress
HEENT: Normocephalic
Respiratory: Clear to Auscultation Bilaterally
Cardiac: S1/S2 and Regular Rate and Rhythm
GI: Soft, Non Distended and Normal Bowel Sounds
Musculoskeletal: No Cyanosis and No Edema
Skin: Warm. Dry.
Neuro: AAO x 3
Psych: Calm

Assessment/Plan
#Right Renal Pelvic Stone, obstructing
#Complicated Urinary Tract Infection
#Infected Kidney stone - Patient with known obstructing stone in the right UPJ (1.9 x 0.[address]) presented with fever - status post Cysto, stone dislodgement and stenting on January 09, 2024
#Fever
- Continue to monitor
- Follow blood cultures; no growth to date
- Follow urine cultures
- continue ceftriaxone 1g IV daily while inpatient (h/o non-complicated uti tx with oral meds in the past)
- Urology consulted, recommendations appreciated
- On discharge: Cefpodoxime 200 mg orally twice daily for 7 days
- Recheck CBC and BMP within 2 to 3 days outpatient
#Hypertension
- continue losartan 50
#DM II
- Continue metformin
- insulin sliding scale q 6 hours
#Hypothyroid
- continue synthroid
DVT PPx - lovenox sq
Full Code
More than 30 minutes spent in discharge including
Final examination of the patient
Summarizing hospital stay
Instructions for continuing care to all relevant caregivers
Preparation of discharge records, prescriptions, and referral forms
Total time spent (in minutes): 38
Anticipated Discharge: Today
Subjective/Interval History
-
Date of Service: January 09, 2024
Patient was seen and examined. She reported feeling okay, no new significant symptoms or complaints.
Objective Data
-
Labs:
Laboratory Results
01/09/24
07:06
WBC 8.1
Hgb 12.5
Hct 36.7 L
Plt Count 172 D
PT 14.5
INR 1.14
Sodium 138
Potassium 4.4
Chloride 105
Carbon Dioxide 28
BUN 11
Creatinine 0.8
Glucose 124 H
Calcium 9.2
Vital Signs:
Vital Signs
Temp Pulse Resp BP Pulse Ox
98.7 F 66 17 153/73 94
01/09/24 11:33 01/09/24 11:30 01/09/24 11:30 01/09/24 11:30 01/09/24 11:33
I&O
01/08/24 01/09/24 01/10/24
06:59 06:59 06:59
Intake Total 600 / 600 50 / 50
Balance 600 / 600 50 / 50
--- NOTE | 2024-01-09 14:48 | W.DS.TRANS ---
DC Summary - Emergency Service Worker
-
Discharge Instructions:
Discharge Diagnosis/Procedures #Right Renal Pelvic Stone, obstructing
#Complicated Urinary Tract Infection
#Infected Kidney stone - Patient with known
obstructing stone in the right UPJ (1.9 x 0.[address]) presented with fever - status post Cysto
, stone dislodgement and stenting on January 08
2023
#Fever
#Hypertension
#Type 2 Diabetes Mellitus
#Hypothyroidism
Diet Diabetic, Carb Controlled,As tolerated
Activity As tolerated
Driving Restrictions Not until seen by your Dr
Blood Work Recheck CBC and BMP within 2 to 3 days
outpatient with your primary care provider's
office
Instructions:
Stand-Alone Forms:
Changes to Home Medications: Yes
Discharge Medications:
DC Medications w/original date entered in [facility]
ascorbic acid (vitamin C) 500 mg tablet (Vitamin C) 1,000 mg PO BID 08/04/20
aspirin 81 mg tablet,delayed release (Aspir-Low) 81 mg PO DAILY 08/04/20
cholecalciferol (vitamin D3) 50 mcg (2,000 unit) tablet 2,000 unit PO DAILY 08/04/20
levothyroxine 100 mcg tablet 100 mcg PO DAILY 08/04/20
losartan 50 mg tablet 50 mg PO DAILY 08/04/20
metformin 500 mg tablet,extended release 24 hr 2,000 mg PO .@DINNER 08/04/20
multivitamin 1 tab PO DAILY 08/04/20
cefpodoxime 200 mg tablet 200 mg PO Q12H 7 days #14 tabs 01/09/24
Home Medication Changes
Cefpodoxime is a new medication.
Vitamin C is on hold.
Pending Results: Yes
Additional Pending Results:
Final results of blood and urine cultures from hospitalization.
Total time spent discharging patient (in min): 38
--- NOTE | 2024-01-09 15:25 | PTCARENOTE ---
Pt DC'd to home. Pt given DC instructions and verbalized understanding.
--- NOTE | 2024-01-12 12:38 | W.DCSUMMARY ---
Discharge Summary
Discharge Data
Date of Admission: 01/08/24
Date of Discharge: 01/09/24
Total time spent discharging patient (in min): 38
-
Pending Results: Yes
Additional Pending Results:
Final results of blood and urine cultures from hospitalization.
Hospital Course
53-year-old female with past medical history of hypothyroidism, hypertension and diabetes mellitus, as well as obesity who presented to the emergency department with fevers and flank pain. Approximately 1 week prior to presentation, she was
diagnosed with obstructive urolithiasis. She 0.9 cm x 1.6 cm right UVP stone with hydronephrosis. She was seen by urology and had a planned procedure January 25, 2024. However, on the day of presentation, she started having fever and measured a temp of
101.5 F at home. She also reported increased right groin and right flank pain. Patient was found to have leukocytosis. A CT of the abdomen pelvis showed a 1.9 x 0.9 cm right CVP obstructing stone with moderate hydronephrosis (however please see full
CT imaging report for further details). Patient was started on antibiotics. On January 09, 2024, patient had, as per urology, a cystoscopy with manipulation and dislodgement of right renal pelvic stone, as well as right ureteral stent insertion
(6-Tamazight x 24 cm). Patient was stable for discharge with antibiotics and close outpatient follow-up.
Discharge Plan
-
Patient Disposition: Home (Routine Discharge)
Discharge Diagnosis/Procedures: #Right Renal Pelvic Stone, obstructing
#Complicated Urinary Tract Infection
#Infected Kidney stone - Patient with known obstructing stone in the right UPJ (1.9 x 0[address]) presented with fever - status post Cysto, stone dislodgement and stenting on January 09, 2024
#Fever
#Hypertension
#Type 2 Diabetes Mellitus
#Hypothyroidism
Condition: Good
Diet: As tolerated and Diabetic, Carb Controlled
Activity: As tolerated
Driving Restrictions: Not until seen by your Dr
Blood Work: Recheck CBC and BMP within 2 to 3 days outpatient with your primary care provider's office
Referrals:
Mike Oneal MD [Active] - in less than 1 week (Hospital follow-up, post-op)
Marisa Stone MD [Family Provider] - in less than 1 week
Additional Discharge Medication Instructions: Cefpodoxime is a new medication.
Vitamin C is on hold.
Prescriptions:
New
cefpodoxime 200 mg tablet
200 mg PO Q12H 7 Days Qty: 14 0RF
Continued
multivitamin 1 EACH tablet
1 tab PO DAILY
metformin 500 MG tablet extended release 24 hr
2,000 mg PO .@DINNER
cholecalciferol (vitamin D3) 2,000 UNIT tablet
2,000 unit PO Q48H
No Action
losartan [Cozaar] 50 mg Tablet
50 mg PO BID
levothyroxine [Synthroid] 100 mcg Tablet
100 mcg PO DAILY
Discharge Orders:
Discharge Patient (As Directed); Ordered 01/09/24
Ordered By: Adam Peña
Discharge Date and Time
Discharge Date/Time: 01/09/24 15:36
Print Language: TAIWANESE
== END 2024-01-09 15:36 | disposition home or self-care (01) | DRG 660 ==
LOC: 4 WEST ACU 05:20
PROVIDERS: ADMITTING PHYSICIAN Internal Medicine; ATTENDING PHYSICIAN Hospitalist; CONSULT PHYSICIAN Specialist; EMERGENCY PHYSICIAN Emergency Medicine; FAMILY PHYSICIAN Internal Medicine
PROC: 0T768DZ Dilation of Right Ureter with Intraluminal Device, Via Natural or Artificial Opening Endoscopic (ICD-10-PCS; 2024-01-09)
DX: N13.6 Pyonephrosis (principal); Z68.41 Body mass index [BMI] 40.0-44.9, adult; E03.9 Hypothyroidism, unspecified; E11.9 Type 2 diabetes mellitus without complications; I10 Essential (primary) hypertension; N80.121 Deep endometriosis of right ovary; E66.01 Morbid (severe) obesity due to excess calories; E28.2 Polycystic ovarian syndrome; E04.1 Nontoxic single thyroid nodule; N28.1 Cyst of kidney, acquired; F32.A Depression, unspecified; D50.9 Iron deficiency anemia, unspecified; K42.9 Umbilical hernia without obstruction or gangrene; Z79.890 Hormone replacement therapy; Z79.84 Long term (current) use of oral hypoglycemic drugs; Z78.0 Asymptomatic menopausal state; Z80.6 Family history of leukemia; Z82.49 Family history of ischemic heart disease and other diseases of the circulatory system; Z80.49 Family history of malignant neoplasm of other genital organs; Z82.5 Family history of asthma and other chronic lower respiratory diseases; Z80.3 Family history of malignant neoplasm of breast; Z80.0 Family history of malignant neoplasm of digestive organs; Z87.442 Personal history of urinary calculi
CPT/HCPCS: 74018; 74177; 76000; 80048; 80053; 81003; 81015; 82962; 83605; 83690; 85025; 85027; 85610; 87040; 87086; 96361; 96374; 96375; 96376; 99285; C1769; C2617; Q9967

== ENCOUNTER 2024-01-17 06:33 | Day surgery (SDC) | payer BC, SELFPAY ==
[2024-01-17] VITALS (7 sets, daily range): BP systolic 101–140; BP diastolic 50–73; BMI 42.9
[2024-01-17 13:15] LABS: Glucose - Point of Care 120 mg/dl (70-99)
[2024-01-17] MEDS: NORMOSOL-R 1000 IV (13:22)
[2024-01-17 16:00] LABS: Glucose - Point of Care 120 mg/dl (70-99)
[2024-01-17] MEDS: DETROL LA 4 MG PO (16:22)
[2024-01-17] MEDS: Pyridium 200 MG PO (16:22)
[2024-01-21 13:48] LABS: Stone Analysis Mass 11 mg
== END 2024-01-17 17:13 | disposition home or self-care (01) ==
LOC: SDS 06:33
PROVIDERS: ATTENDING PHYSICIAN Surgery
DX: N13.2 Hydronephrosis with renal and ureteral calculous obstruction (principal); Z87.440 Personal history of urinary (tract) infections
CPT/HCPCS: 52356; 74420; 76000; 82365; 82962; C1769; C1894; C2617

== ENCOUNTER 2024-01-20 10:53 | Emergency (ER) | payer BC, SELFPAY ==
[2024-01-20 11:04] VITALS: BP 178/81
[2024-01-20 12:38] LABS: % Basophils 0.5 % (0-2); % Eosinophils 1.8 % (0-6); % Immature Granulocytes 0.8 % (0-0.5); % Lymphocytes 20.6 % (20.5-51.1); % Neutrophils 69.3 % (42.2-75.2); Absolute Basophils 0.1 10^3/uL (0-0.2); Absolute Eosinophils 0.2 10^3/uL (0-0.7); Absolute Immature Granulocytes 0.1 10^3/uL (0-0.05); Absolute Lymphocytes 2.1 10^3/uL (1.2-3.4); Absolute Monocytes 0.7 10^3/uL (0.1-0.6); Hematocrit 42.3 % (37.0-47.0); Hemoglobin 13.8 g/dL (12.0-16.0); Mean Corp Hgb Conc. 32.6 g/dL (33.0-37.0); Mean Corpuscular Hgb 29.7 pg (27.0-31.0); Mean Platelet Volume 10.5 fL (7.4-10.4); Nucleated Red Blood Cells % 0 %; Platelet Count 191 10^3/uL (130-400); Red Blood Cell Count 4.65 10^6/uL (4.20-5.40); Red Cell Dist. Width 13.2 % (11.5-14.5)
[2024-01-20 12:41] LABS: Urine Albumin Trace (Neg - Trace); Urine Bilirubin Negative (Negative); Urine Character Clear (Clear); Urine Color Straw; Urine Glucose Negative (Negative); Urine Ketone Negative (Negative); Urine Leukocyte 1+ (Negative); Urine Nitrite Negative (Negative); Urine Occult Blood 4+ (Negative); Urine Urobilinogen Negative (Neg - 1+)
[2024-01-20 12:48] LABS: Urine Bacteria Few (Negative); Urine Squamous Cell 0-2 /LPF (Few)
[2024-01-20 12:49] LABS: Urine Red Blood Cell 40-50 /HPF (0-2)
[2024-01-20 12:52] LABS: ALT (SGPT) 21 U/L (0-35); AST (SGOT) 21 U/L (14-36); Albumin 4.3 g/dl (3.5-5.0); Alkaline Phosphatase 118 U/L (38-126); Blood Urea Nitrogen 18 mg/dl (7-17); Calcium 9.9 mg/dl (8.4-10.2); Carbon Dioxide 27 mmol/L (22-30); Chloride 102 mmol/L (98-107); Glucose 131 mg/dl (70-99); Lipase 306 U/L (23-300); Potassium 3.9 mmol/L (3.5-5.1); Sodium 139 mmol/L (135-145); Total Bilirubin 0.5 mg/dl (0.2-1.3); Total Protein 7.1 g/dl (6.3-8.2); eGFR > 60.00
--- NOTE | 2024-01-20 12:56 | ED.GENMED ---
History of Present Illness
General
Chief Complaint: Dizziness
Time Seen by Provider: 01/20/24 12:16
Travel History
Have you had any contact with someone who has COVID-19?: No
Do you have any symptoms of coronavirus? Fever > 100 degrees, chills, cough, shortness of breath, sore throat, loss of taste or smell, muscle aches, or headache?: No
History of Present Illness
History of Present Illness:
53-year-old female presents to the emergency department for evaluation of dizziness and nausea. She is 3 days status post ureteral stent exchange and partial kidney stone removal done at this hospital. She notes that today she woke with nausea.
She does have some right flank pain which she felt was anticipated due to the ureteral stent and she rates it as mild. She has been taking suppressive ciprofloxacin as well as tamsulosin postoperatively. Denies any vomiting, diarrhea, or fevers.
Past History
Past History
ED Past Medical History: HTN, NIDDM and Hypothyroidism
ED Past Surgical History: None
Social History
Tobacco: Non-smoker
Alcohol: None
Drug: None
Living: with family
Employment: Employed
Review of Systems
Review of Systems
Allergies reviewed?: Yes
All Other Systems: ROS reviewed and negative except as documented in HPI and ROS
Phy Exam
Physical Exam
Physical Exam:
GEN: Well appearing, NAD, WDWN
HEENT: Oral mucosa moist, no scleral icterus
Cardiac: Regular rate and rhythm, no murmurs
Lung: No respiratory distress, no tachypnea, lungs clear to auscultation bilaterally
MSK: No gross deformity or injuries
Skin: Good color, no pallor or jaundice, no rashes
Neuro: AO x3, moves all extremities freely
Psych: Calm, cooperative
Course
Orders/Labs/Results
Orders:
Orders
01/20/24 12:27
Complete Blood Count/With Diff Urgent
Comprehensive Metabolic Panel Urgent
Lipase Urgent
Urinalysis Reflex To Culture Urgent
Date Specimen was Collected: 01/20/24
Time Specimen was Collected: 12:20
Urine Microscopic Reflex Cult Urgent
Urine Culture Urgent
LANA Source: U
Specimen Description:
Date Specimen was Collected: 01/20/24
Time Specimen was Collected: 12:20
01/20/24 12:53
0.9% Sodium Chloride 1000 ml [Nss] 1,000 ml IV BOLUS
Abdomen Xray - 1 View [CR Abdomen - 1 View] Urgent
Comment: KUB
Reason For Exam: ureteral stent position check
Abnormal Lab Results
01/20/24
12:27
MCHC 32.6 L g/dL
(33.0-37.0)
MPV 10.5 H fL
(7.4-10.4)
Abs Immat Gran (auto) 0.1 H 10^3/uL
(0-0.05)
Absolute Neuts (auto) 7.0 H 10^3/uL
(1.4-6.5)
Absolute Monos (auto) 0.7 H 10^3/uL
(0.1-0.6)
Immature Gran % 0.8 H %
(0-0.5)
BUN 18 H mg/dl
(7-17)
Glucose 131 H mg/dl
(70-99)
Lipase 306 H U/L
(23-300)
Ur Occult Blood Reflex 4+ A
(Negative)
Leukocyte Esterase Rfl 1+ A
(Negative)
Urine RBC 40-50 A /HPF
(0-2)
Urine Bacteria (Reflex) Few A
(Negative)
01/20/24 12:27
01/20/24 12:27
Vital Signs
Initial and Last Documented VS:
Initial Vital Signs
Temp Pulse Resp BP Pulse Ox
98.3 F 59 16 178/81 98
01/20/24 11:04 01/20/24 11:04 01/20/24 11:04 01/20/24 11:04 01/20/24 11:04
Last Documented Vital Signs
Temp Pulse Resp BP Pulse Ox
98.3 F 65 18 144/68 99
01/20/24 11:04 01/20/24 14:29 01/20/24 14:29 01/20/24 14:29 01/20/24 14:29
MDM/Problems Addressed
MDM/Problems Addressed:
Patient's workup is unremarkable. No evidence for residual UTI. Stent appears well-positioned on KUB films. Given IV fluids, could be postanesthesia reaction. Discussed supportive care and recommend close urology follow-up
*Critical Care Note
Total Time (30-74mins, 75-104mins- exclusive of procedures): Not Applicable
ED Attending Note
-
Portions of this chart may have been created with voice recognition software.� Occasional wrong word or��sound alike� substitutions may have occurred due to the inherent limitations of voice recognition software.
Discharge Plan
Departure
Patient Disposition: Home (Routine Discharge)
Date of Disposition: 01/20/24
Time of Disposition: 14:10
Patient with high blood pressure during this ER visit?: No
Discharge Problem:
Dizziness
Instructions: Dizziness, Nonvertigo, (DC)
Prescriptions:
No Action
multivitamin 1 EACH tablet
1 tab PO DAILY
metformin 500 MG tablet extended release 24 hr
2,000 mg PO .@DINNER
cholecalciferol (vitamin D3) 2,000 UNIT tablet
2,000 unit PO Q48H
losartan [Cozaar] 50 mg Tablet
50 mg PO BID
levothyroxine [Synthroid] 100 mcg Tablet
100 mcg PO DAILY
calcium carbonate [Tums] 200 mg calcium (500 mg) Tablet,Chewable
600 mg PO PRN PRN (Reason: indigestion)
ibuprofen [Advil] 200 mg Tablet
600 mg PO Q6H PRN (Reason: pain)
Gemtesa 75 mg Tablet
75 mg PO DAILY
cefpodoxime 200 mg tablet
200 mg PO Q12H 7 Days Qty: 14 0RF
Referrals:
Marisa Stone MD [Family Provider] -
Activity Restrictions/Additional Instructions:
We will call you if urine culture is positive
Interventions
Interventions:
*Risk Screen - Suicide Last Done: 01/20/24 12:20
*General Assessment Last Done: 01/20/24 12:20
*Neglect/Abuse Screening Last Done: 01/20/24 12:20
ED- Fall Risk Assessment Last Done: 01/20/24 12:20
*ED COVID-19 Vaccine History Last Done: 01/20/24 11:04
*Nursing Disposition Last Done: 01/20/24 14:28
ED- Neurological Assessment Last Done: 01/20/24 12:20
Discharge Date and Time
Discharge Date/Time: 01/20/24 14:34
Print Language: GIBRALTARIAN
[2024-01-20] MEDS: NSS 1000 IV (13:06)
[2024-01-20 13:30] VITALS: BP 159/78
[2024-01-20 14:29] VITALS: BP 144/68
== END 2024-01-20 14:34 | disposition home or self-care (01) ==
LOC: EMR 10:53
PROVIDERS: EMERGENCY PHYSICIAN Emergency Medicine; FAMILY PHYSICIAN Internal Medicine
DX: R42 Dizziness and giddiness (principal); R11.0 Nausea; R10.9 Unspecified abdominal pain; I10 Essential (primary) hypertension; E11.9 Type 2 diabetes mellitus without complications; E03.9 Hypothyroidism, unspecified; Z98.890 Other specified postprocedural states; Z87.442 Personal history of urinary calculi; Z79.84 Long term (current) use of oral hypoglycemic drugs
CPT/HCPCS: 99284; 96360; 74018; 80053; 81003; 81015; 83690; 85025; 87086

== ENCOUNTER 2024-02-25 06:07 | Day surgery (SDC) | payer BC, SELFPAY ==
[2024-02-25] VITALS (9 sets, daily range): BP systolic 105–147; BP diastolic 45–82; BMI 44.3
[2024-02-25 11:59] LABS: Glucose - Point of Care 136 mg/dl (70-99)
[2024-02-25] MEDS: NORMOSOL-R 1000 IV (11:59)
[2024-02-25] MEDS: TYLENOL 1000 MG PO (12:32)
[2024-02-25 14:32] LABS: Glucose - Point of Care 144 mg/dl (70-99)
[2024-02-25] MEDS: Pyridium 200 MG PO (14:57)
[2024-02-25] MEDS: DETROL LA 4 MG PO (14:57)
== END 2024-02-25 15:52 | disposition home or self-care (01) ==
LOC: SDS 06:07
PROVIDERS: ATTENDING PHYSICIAN Surgery; FAMILY PHYSICIAN Internal Medicine
DX: N13.2 Hydronephrosis with renal and ureteral calculous obstruction (principal)
CPT/HCPCS: 52356; 74018; 76000; 82962; 93005; A4300; C1758; C1769; C1894; C2617

== ENCOUNTER → 2024-03-31 09:01 | Outpatient (REF) | payer BC, SELFPAY | LOC: RAD 09:01 | PROVIDERS: ATTENDING PHYSICIAN Surgery; FAMILY PHYSICIAN Internal Medicine | DX: N13.6 Pyonephrosis (principal) | CPT/HCPCS: 74018 ==

== ENCOUNTER → 2024-04-11 08:44 | Outpatient (REF) | payer BC, SELFPAY | LOC: MRI 3T 08:44 | PROVIDERS: ATTENDING PHYSICIAN Obstetrics & Gynecology Gynecologic Oncology; FAMILY PHYSICIAN Internal Medicine | DX: A43.9 Nocardiosis, unspecified (principal); R19.03 Right lower quadrant abdominal swelling, mass and lump; R19.04 Left lower quadrant abdominal swelling, mass and lump; Q52.11 Transverse vaginal septum; Z12.4 Encounter for screening for malignant neoplasm of cervix; N76.0 Acute vaginitis; K43.9 Ventral hernia without obstruction or gangrene | CPT/HCPCS: 72197; A9575 ==

== ENCOUNTER → 2024-04-18 12:21 | Outpatient (REF) | payer BC, SELFPAY | LOC: HWRAD 12:21 | PROVIDERS: ATTENDING PHYSICIAN Obstetrics & Gynecology Gynecologic Oncology; FAMILY PHYSICIAN Internal Medicine | DX: R19.03 Right lower quadrant abdominal swelling, mass and lump (principal); D25.9 Leiomyoma of uterus, unspecified; R19.04 Left lower quadrant abdominal swelling, mass and lump; Q52.11 Transverse vaginal septum; N13.30 Unspecified hydronephrosis; N76.0 Acute vaginitis; Z12.4 Encounter for screening for malignant neoplasm of cervix | CPT/HCPCS: 71260; 74177; Q9967 ==

== ENCOUNTER → 2024-04-21 12:51 | Outpatient (REF) | payer BC, SELFPAY | LOC: RAD 12:51 | PROVIDERS: ATTENDING PHYSICIAN Surgery; FAMILY PHYSICIAN Internal Medicine | DX: N20.0 Calculus of kidney (principal) | CPT/HCPCS: 76775 ==

== ENCOUNTER 2024-05-03 09:41 | Inpatient (IN) | payer BC, SELFPAY ==
[2024-04-21 07:49] VITALS: BMI 43.1
[2024-04-21 09:09] LABS: % Basophils 0.3 % (0-2); % Eosinophils 2.4 % (0-6); % Immature Granulocytes 0.2 % (0-0.5); % Lymphocytes 16.5 % (20.5-51.1); % Monocytes 7.5 % (1.7-9.3); % Neutrophils 73.1 % (42.2-75.2); Absolute Eosinophils 0.2 10^3/uL (0-0.7); Absolute Lymphocytes 1.4 10^3/uL (1.2-3.4); Absolute Monocytes 0.7 10^3/uL (0.1-0.6); Absolute Neutrophils 6.3 10^3/uL (1.4-6.5); Hematocrit 37.3 % (37.0-47.0); Hemoglobin 12.6 g/dL (12.0-16.0); Mean Corp Hgb Conc. 33.8 g/dL (33.0-37.0); Mean Corpuscular Hgb 30.2 pg (27.0-31.0); Mean Corpuscular Volume 89.4 fL (81.0-99.0); Mean Platelet Volume 10.6 fL (7.4-10.4); Nucleated Red Blood Cells % 0 %; Platelet Count 189 10^3/uL (130-400); Red Blood Cell Count 4.17 10^6/uL (4.20-5.40); Red Cell Dist. Width 13.2 % (11.5-14.5); White Blood Cell Count 8.6 10^3/uL (4.8-10.8)
[2024-04-21 09:58] LABS: ALT (SGPT) 15 U/L (0-35); AST (SGOT) 24 U/L (14-36); Albumin 4.3 g/dl (3.5-5.0); Alkaline Phosphatase 114 U/L (38-126); Blood Urea Nitrogen 17 mg/dl (7-17); Calcium 9.7 mg/dl (8.4-10.2); Carbon Dioxide 25 mmol/L (22-30); Chloride 104 mmol/L (98-107); Estimated Creatinine Clearance 101 ml/min; Glucose 91 mg/dl (70-99); Potassium 4.5 mmol/L (3.5-5.1); Sodium 142 mmol/L (135-145); Total Bilirubin 0.8 mg/dl (0.2-1.3); eGFR > 60.00
--- NOTE | 2024-05-01 17:28 | HPS.HSE ---
Family Physician
-
Family Physician: Marisa Stone
Chief Complaint
-
Pelvic mass
History of Present Illness
53�year�old, presents for an opinion regarding multiple abnormalities involving gynecologic organs. States her last period was
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 The bleeding stopped, she has
had some discharge, pelvic ultrasound in July 2023 showed uterus 13.5 cm, endometrium was thickened. 2 additional
attempts was done without success, she was referred to Dr. Rivka Strickland at [place]. She had previously seen Dr. Damon
who had alerted her about returning back to the office if bleeding restarts. Right ovary is not well�visualized and is replaced by a
complex cyst measuring 6.2 cm likely representing an endometrioma.
I reviewed some radiology reports, CT abdomen and pelvis with IV contrast December 31, 2023 shows large umbilical hernia containing
mesenteric fat, hernia defect is 3.4 cm, there is a large exophytic uterine fibroids present, bilateral ovaries appear to be enlarged
measuring 7.1 cm on the left and 5.3 cm on the right. There is right�sided obstructive uropathy secondary to 1.9 cm calculus at the
right UPJ causing severe right hydronephrosis.
She saw Dr Oneal and cysto done 02/25/2024 basket extraction stone done, right ureteral exchange placed, eventually removed.
On her review of system the patient continues to report that she is attending weight loss, has back pain and still has some ongoing
vaginal discharge but not bleeding.
Patient provided me with some radiologic studies that had been done over the course of the recent time including CT scan December 30,
2023 indicating right�sided obstructive uropathy due to calculus, large umbilical hernia, bilateral ovaries appearing to be enlarged but
difficult to distinguish from a known large exophytic uterine fibroids, endometriomas are suspected.
Ultrasound of pelvis dated May 03, 2019 showing mildly enlarged uterus 12.6 cm, heterogeneous myometrium with several
fibroids, endometrial thickness of 12 mm, right ovary measuring 9.1 x 6 x 5.8 cm containing a multicystic complex lesion, left ovary
was seen on transabdominal imaging measuring 3.1 cm.MRI of the pelvis dated May 18, 2019 revealing an enlarged myomatous uterus, several of the larger masses are subserosal
but there is a fairly large intramural mass and a much smaller mass in the fundus, multiple follicles in the ovary 2 lesions in the right
ovary with features consistent with endometrioma versus hemorrhagic cyst, evidence of hydrosalpinx and right adnexa and cervical
nabothian cyst.
MRI of the pelvis dated June 2020 indicating multiple fibroids large left fundal subserosal fibroid measuring 6 cm, grossly stable
uterine size with multiple large fibroids, stable size right ovarian mass representing endometrioma.
Ultrasound of pelvis dated November 19, 2021 indicating uterus retroflexed measuring 12.4 cm, endometrial thickness is up to 15 mm in
thickness, right ovary measures 6.4 x 6.8 cm and a mildly complex cystic lesion in the right ovary measures 5.8 cm,
Ultrasound of the pelvis August 18, 2023 indicating uterus measuring 13.5 x 5.7 x 9.8 cm, endometrial stripe with 13.8 mm, right
ovary not well�visualized replaced by complex cyst measuring up to 6.2 cm.
Medical History
Past Medical History
Past Medical History: Reports HTN, Hypothyroidism and NIDDM
Past Surgical History: Reports Urological
Additional Past Surgical History:
C�Section 08/26/2001, Exploratory Laparotomy 08/2004, Knee (Meniscus) 08/2016, Ureter stent placement 01/09/2024, lithotripsy
01/17/2024 Part 1 � 02/25/2024 Part 2
Social History
Tobacco: Non-smoker
Alcohol: Occasional
Drug: None
Personal:
Employment: Employed
Family History
Family History: Not pertinent
Allergies / Home Medications
Allergies reflects when Allergies were last updated in [facility].
Home Medications with original date entered in [facility]
Allergy/Medication List:
NKDA
Review of Systems
-
A 12 point ROS was completed and negative except as noted: Yes
Respiratory: Reports Other (recent COVID 19 infection , took paclovid, symptoms resolved)
Physical Exam
Physical Exam
General: Well Developed, Well Nourished and No Apparent Distress
HEENT: NormoCephalic
Respiratory: Clear
Cardiac: S1/S2 and Regular Rhythm
GI: Soft, Non Tender and Other (Umbilical hernia)
Musculoskeletal: No Clubbing, No Cyanosis and No Edema
Skin: Warm and Dry
Neuro: Awake, Alert, Oriented, AO x 3 and No Motor Deficits
Psych: Calm and Intact Judgment/Insight
Laboratory Results
-
04/21/24 07:54
04/21/24 07:54
Laboratory Results
Total Bilirubin 0.8 mg/dl (0.2-1.3) 04/21/24 07:54
AST 24 U/L (14-36) 04/21/24 07:54
ALT 15 U/L (0-35) 04/21/24 07:54
Alkaline Phosphatase 114 U/L (38-126) 04/21/24 07:54
MRI of pelvis performed at [facility], shows left ovary to be 16 cm in size, there is a complex cystic and solid
presentation, there is a mildly enhancing solid component measuring 8.6 cm, there is some mass effect on the adjacent bowel.
Uterus is enlarged with numerous fibroids some of which are subserosal. Right ovary has numerous small subcentimeter cyst with a
5.5 cm lesion probably an endometrioma. There is a large ventral hernia containing nonobstructed colon, small amount of fluid in the
right pelvis, the appearance of the left ovary mass highly suspicious for an ovarian malignancy.
Data Reviewed
-
Diagnostic Radiology: Image Personally Visualized and interpreted
CT Scan: Image Personally Visualized and interpreted
Impression/Plan
-
IMPRESSION:
This patient has a discharge which is apparently related tp endometrium. she appears menopausal. and this is probably related to
polyp, hyperplasia, or cancer.
I was unable to perform an endometrial biopsy during the last visit because of anatomical variations. On the MRI the endometrium
looks rather unremarkable however there is concern about a mass involving the left ovary as described above in the MRI report, she
also has an abnormal CA125 of 57. I ordered a stat CT of chest abdomen and pelvis to assess for upper abdominal disease and
chest metastasis but I recommend surgery for definitive management. Surgery will include a robotic assisted total laparoscopic
hysterectomy, bilateral salpingo�oophorectomy, or plan is to request assistance from general surgery to extract the hernia from the
hernia sac at the beginning of surgery, proceed with a gynecologic aspect of the surgery, reduce the hernia site for incision to
actually extract the specimens. Frozen sections will be done MALIGNANCY is confirmed the patient to undergo additional staging
procedures to include but not limited to pelvic and aortic lymph node dissection, multiple peritoneal biopsies, omentectomy,
washings, with an attempt at optimal tumor cytoreduction. Risk of surgery including infection bleeding injury to adjacent organs DVT
pulmonary embolism and cardiovascular complications were discussed and reviewed patient is also informed that she may require
additional adjuvant treatment after completion of surgery if malignancy is present. My overall impression of the appearance of the
tumor on MRI. This is consistent with low�grade serous carcinoma, alternatively this could be a clear�cell carcinoma arising from
endometrial.
Surgery is planned on 05/02/2024
PLAN:
[2024-05-02] VITALS (16 sets, daily range): BP systolic 5–148; BP diastolic 32–75; BMI 41.7
[2024-05-02 06:59] LABS: Glucose - Point of Care 144 mg/dl (70-99)
[2024-05-02] MEDS: NEURONTIN 300 MG PO (07:01)
[2024-05-02] MEDS: TYLENOL 1000 MG PO (07:01)
[2024-05-02] MEDS: CELEBREX 200 MG PO (07:02)
[2024-05-02] MEDS: HEPARIN 5000 UNITS SC (07:03)
[2024-05-02] MEDS: NORMOSOL-R/PLASMALYTE-A 1000 IV (07:08)
[2024-05-02 08:53] LABS: Glucose - Point of Care 159 mg/dl (70-99)
[2024-05-02 10:45] LABS: B.E. - POC -1.6 mmol/L; Glucose - POC 223 mg/dl (70-99); HCO3 - POC 24 mmol/L (21-29); Hematocrit - POC 32 % PCV (37-47); Hemodilution- POC No; Hemoglobin Calculated - POC 10.7; Ionized Calcium - POC 1.14 mmol/L (1.12-1.27); O2 Saturation %Calculated-POC 95.1 5 (92-96); PCO2 - POC 45 mmHg (35-45); PO2 - POC 81 mmHg (80-100); Potassium - POC 4.6 mmol/L (3.6-5.0); Sodium - POC 140 mmol/L (135-145); pH - POC 7.34 (7.35-7.45)
[2024-05-02 12:33] LABS: Glucose - Point of Care 200 mg/dl (70-99)
--- NOTE | 2024-05-02 13:19 | W.IMMPOSTOP ---
Addendum entered and electronically signed by Linden Salmon MD 05/05/24 15:42:
Dic#[id number]
Original Note:
Surgical Immed Post Op Note
-
Primary Surgeon: Luis Antonio
Assisting Surgeon: Eliceo
Pre-op Diagnosis: Umbilical/ventral hernia, LEFT ovarian mass, abnormal uterine bleeding, elevated CA125
Post-op Diagnosis: Umbilical/ventral hernia, LEFT ovarian mass
Procedure Performed: Open primary ventral hernia repair
Anesthesia Type: General
Specimen / Cultures: None from GS portion of procedure, see SUPER[facility]ING [facility]PUTY for further details
Estimated Blood Loss: 23 cc
Complications: None
Operative Findings:
1. Umbilical hernia containing omentum and transverse colon, fascial defect 3 x 4 cm
2. RAL converted to open exploratory laparotomy performed by SUPER[employer]ING DEPUTY (see separate note for details), primary closure of fascia with little to no tension using #1 PDS
3. 15 Fr Jef drain into subcutaneous space, skin closed with Monocryl
--- NOTE | 2024-05-02 13:25 | OR.RPT ---
Operative Report
Operative Report
Date of procedure: May 02, 2024
Preoperative diagnosis: Left lower quadrant complex ovarian mass, abnormal uterine bleeding, elevated CA125
Additional preoperative diagnosis: Umbilical/ventral hernia
Postoperative diagnosis: Left ovary with malignant epithelial neoplasm, completely resected
Surgeon: Woody Fenton MD
Assist: Alexandr Strickland PA-C
General Surgeon: Linden Salmon MD who performed a ventral herniorrhaphy with primary repair
Procedure: Failed attempted robotic assisted TLH BSO, exploratory laparotomy, radical tumor debulking including bilateral salpingo-oophorectomy, modified radical hysterectomy, bilateral pelvic and low aortic lymphadenectomy, resection of right and
left paracolic gutter and pelvic peritoneum, infracolic omentectomy, appendectomy, optimal tumor debulking
Anesthesia: General Endotracheal intubation and tap block
Estimated blood loss: 400 cc
IV fluids: 3000 cc crystalloid
Urine output: 300 cc clear
Complications: None
Indication for the surgery this is a 53-year-old white female who is presenting for management of a complex 18 cm cystic and solid mass arising from left ovary, CA125 is 57. The patient has multiple leiomyoma and prior history of endometriosis.
She also has ventral hernia containing bowel loops.
Procedure in detail: Patient was brought to the operating room and placed in supine position, general anesthesia was administered, she was intubated without any difficulty. Tap block was performed by anesthesia team. She was placed in lithotomy
position using yellowfin stirrups. Lawler catheter was inserted under sterile conditions for drainage of the bladder. The patient was prepped and draped on the abdomen perineum vagina and upper thighs. Timeout procedure was completed. She had
received Ancef and Flagyl for prophylaxis, an incision was made around the right side of the umbilicus, the contents of hernia sac was from all the adjacent skin and subcutaneous tissue. Hernia sac was entered, hernia sac was eventually
resected from adjacent fascial edges and the contents including transverse colon was dropped back into the peritoneal cavity. Details of which will be dictated by Dr. Roberson. We placed a lap cap and proceeded to insufflate the abdomen with CO2
gas, the robotic ports X I were placed in the mid epigastrium right and left upper quadrant and left lateral abdomen and a 12 mm air seal port was placed in the right abdomen. Upper abdomen was examined, bilateral diaphragms were normal, liver
spleen and stomach were normal. Washings were collected from right diaphragm. It was noted that the left ovary apparently had ruptured in the process and cloudy appearing fluid was floating and pelvis as well as paracolic gutters. Patient was
placed in 28 degree Trendelenburg. The fluid was collected and a portion of the fluid was submitted for cytology evaluation. We identified the round ligaments and sealed and divided them. For the next 30 minutes I made an attempt to open the left
retroperitoneum and identified the course of ureter and also to separate the sigmoid colon from portions of the left ovary and this was not successful. I decided to proceed to laparotomy. Robotic system was undocked, laparoscopic ports were
removed. We used the hernia sac and made a vertical skin incision from mid epigastrium down to symphysis pubis. Bookwalter retractor was placed, I went ahead and packed the bowel in the upper abdomen using 3 moist laparotomy sponges. The pelvis
was visualized bladder flap had already been developed sharply and advanced below the cervical vaginal junction. Portion of the anterior abdominal wall was removed and submitted to pathology. In the retroperitoneum the course of the ureter was
identified. Infundibulopelvic ligament was sealed and divided and tied off with 2-0 silk tie. The tube and ovary was gradually resected off the mesentery of the sigmoid colon. The left tube and ovary was eventually detached from the posterior
cul-de-sac and then the utero-ovarian ligament and fallopian tube was sealed and divided tube and ovary was submitted for pathology. 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 Please note
that the ovary was ruptured during the course of manipulation and solid tumor was visible capsule of the ovary. Next the right tube and ovary was also elevated. The right ovarian vessels were identified sealed and divided and tied off with 2-0
silk tie. This tube and ovary contained an endometrioma portion of which was ruptured during the course of resection. We opened the posterior cul-de-sac and was able to mobilize the entire right tube and ovary. The attachments of the uterus were
sealed and divided. After this tube and ovary was submitted to pathology. Uterine arteries followed by cardinal ligaments followed by uterosacral ligaments were sealed and divided with the vessel sealer, straight Zeppelin clamps were applied to
remainder of the paracervical tissue as well as apex of the vagina each pedicle was transected and suture-ligated with 0 Vicryl suture ligature. Specimen including uterus and cervix was transected and submitted to pathology and vaginal cuff was
closed with running suture of 0 Vicryl starting from center to both apices and back to the center. Following this the peritoneum involving the left pelvis was completely resected and submitted to pathology. Bilateral pelvic lymphadenectomy was
performed removing lymphatic tissue between mid common iliac level down to the level of deep circumflex iliac artery and vein with lateral boundary of genitofemoral nerve and medial boundary of superior vesicle artery. In both sides the dissection
extended into the obturator fossa and lymph nodes anterior to the obturator nerve were removed. Good hemostasis was present bilaterally. Small bowel was examined from ligament of Treitz down to ileocecal valve and there was no evidence of implants
or abnormality or malignant involvement. Appendix was removed secondary to concern for involvement. Mesoappendix was sealed and divided with vessel sealer. [place] 30 stapler was fired at the base of the appendix and the cecum and the appendix was
transected. Omentum was exteriorized, omental attachments from hepatic flexure to splenic flexure was freed up, a series of omental vessels were sealed and divided with vessel sealer until the entire omentum was removed and this was submitted to
pathology. We then reexamined the sigmoid colon. The actual colonic tissue did not have any involvement with the tumor however on the lateral mesentery of the colon there were areas that had remnants of the ovarian cyst. This was resected in its
entirety, 2 small bleeding vessels were encountered and these were suture-ligated with 3-0 Vicryl good hemostasis was present in the blood supply of the colon was not disrupted. We then removed a large portion of the peritoneum at the level of the
pelvic brim involving the left pelvis as well as left anterior abdominal wall exposing the inferior epigastric vessels. Peritoneum from right and left paracolic gutters were also removed and submitted to pathology. Peritoneum from the right
anterior abdomen close to the site of insertion of our AirSeal port was also removed and submitted to pathology. Periaortic lymph nodes were palpated, there were none that were suspicious for underlying large. We had very difficult time with
exposure and decided against removing these lymph nodes that they were not enlarged based on imaging preoperatively. At this point there was excellent and complete resection of any visible disease. All the bowel was returned back to its normal
anatomical position. All laps and instruments were removed and the counts were correct and we proceeded to close the fascia. #1 looped PDS was used to close the fascia starting from both ends coming to the center and they were tied to each other.
These subcutaneous tissue was irrigated and made hemostatic. The 15 Marshallese Jef drain was placed in the bed of the hernia sac and was brought out through one of the right upper quadrant port incisions. General surgery team proceeded to close the
subcutaneous tissue with interrupted 0 Vicryl sutures. 4-0 Monocryl in a subcuticular fashion was used to close the skin incision. The fascia at the level of 12 mm port in the right abdomen was closed with 0 Vicryl. 4-0 Monocryl suture was used
to close the port incisions. The Lawler catheter was left in the uterus. Patient was awakened extubated and returned back to recovery room in stable awake and extubated condition. Counts of laps instruments and needle was correct x 2. I was
present and scrubbed for entire procedure as dictated above.
Disposition: To PACU, awake alert extubated
[2024-05-02 13:33] LABS: Glucose - Point of Care 190 mg/dl (70-99)
[2024-05-02 13:46] LABS: Hematocrit 30.6 % (37.0-47.0); Hemoglobin 10.5 g/dL (12.0-16.0); Mean Corp Hgb Conc. 34.3 g/dL (33.0-37.0); Mean Corpuscular Hgb 30.3 pg (27.0-31.0); Mean Corpuscular Volume 88.2 fL (81.0-99.0); Platelet Count 257 10^3/uL (130-400); Red Blood Cell Count 3.47 10^6/uL (4.20-5.40); Red Cell Dist. Width 12.8 % (11.5-14.5); White Blood Cell Count 11.2 10^3/uL (4.8-10.8)
[2024-05-02 13:54] LABS: Blood Urea Nitrogen 14 mg/dl (7-17); Calcium 7.2 mg/dl (8.4-10.2); Carbon Dioxide 19 mmol/L (22-30); Chloride 107 mmol/L (98-107); Estimated Creatinine Clearance 99 ml/min; Glucose 198 mg/dl (70-99); Potassium 4.4 mmol/L (3.5-5.1); Sodium 140 mmol/L (135-145); eGFR > 60.00
[2024-05-02] MEDS: DILAUDID 0.25 MG IV ×2 (14:02→14:45)
[2024-05-02] MEDS: NOVOLOG vial 2 UNITS SC (14:12)
[2024-05-02] MEDS: TORADOL 15 MG IV ×2 (14:15→19:40)
[2024-05-02] MEDS: NSS 1000 IV ×2 (14:32→22:51)
--- NOTE | 2024-05-02 14:33 | CON.HOSP ---
Consultation
-
Date/Time Consultation Requested: 05/02/24
Date/Time Consultation Performed: 05/02/24 2:30PM
Requesting Provider: Dr. Woody Fenton
Performing Provider: Dr. Karine Maki
Family Physician
-
Family Physician: Marisa Stone
Chief Complaint
-
medical management
History of Present Illness
Ms. Nery Samuel is a 53 yo woman with hx complex 18 cm cystic and solid mass from left ovary with CA 125 57, hx multiple leiomyoma and prior history endometriosis now s/p surgery this morning. She was extubated post-op.
Seen post-op. She has moderate pain, no chest pain. No shortness of breath.
Medical History
Past Medical History
Past Medical History: Reports HTN, Hypothyroidism, NIDDM and Other (Uterine fibroids, ovarian cysts)
Past Surgical History: Reports Gynocological (thickened endometrium s/p attempted biopsies ) and Urological ( right obstructive uropathy s/p cysto/stone extraction 02/25/24)
Family History
Family History: Reviewed & Not Pertinent
Allergies / Home Medications
Allergies reflects when Allergies were last updated in [facility].
Home Medications with original date entered in [facility]
Allergy/Medication List:
Allergies
Allergy/AdvReac Type Severity Reaction Status Date / Time
No Known Allergies Allergy Verified 05/02/24 06:55
Home Medications
metformin 500 mg tablet,extended release 24 hr 1,500 mg PO QPM 08/04/20
multivitamin 1 tab PO DAILY 08/04/20
levothyroxine 100 mcg tablet (Synthroid) 100 mcg PO DAILY 01/10/24
losartan 50 mg tablet (Cozaar) 50 mg PO BID 01/10/24
Tylenol 750 mg PO PRN PRN discomfort 04/25/24
cholecalciferol (vitamin D3) 25 mcg (1,000 unit) capsule (Vitamin D3) 25 mcg PO DAILY 04/25/24
Review of Systems
-
History Source: Patient
A 12 point Review of Systems was completed except as noted: Yes
Physical Exam
Vital Signs
Vital Signs
Temp Pulse Resp BP Pulse Ox
97.4 F 72 22 124/52 99
05/02/24 13:22 05/02/24 14:30 05/02/24 14:30 05/02/24 14:30 05/02/24 14:30
Physical Exam
General: No Apparent Distress
HEENT: PERRLA
Respiratory: Clear; Negative Wheezes
Cardiac: S1/S2 and Regular Rhythm
GI: Other (mid-line surgical incision, abdominal binder )
Musculoskeletal: No Edema
Skin: Warm and Dry; Negative Rash
Neuro: AO x 3
Psych: Calm
Laboratory Results
-
Laboratory Results
05/02/24 13:32
05/02/24 13:32
Total Bilirubin 0.8 mg/dl (0.2-1.3) 04/21/24 07:54
AST 24 U/L (14-36) 04/21/24 07:54
ALT 15 U/L (0-35) 04/21/24 07:54
Alkaline Phosphatase 114 U/L (38-126) 04/21/24 07:54
Data Reviewed
-
Diagnostic Radiology: Report Reviewed by Me
Lab Data: Labs Reviewed
Impression / Plan
-
Ms. Nery Samuel is a 53 yo woman with hx complex 18 cm cystic and solic mass from left ovary with CA 125 57, hx multiple leiomyoma and prior history endometriosis now s/p surgery this morning.
05/02/24
Procedure: Failed attempted robotic assisted TLH BSO, exploratory laparotomy, radical tumor debulking including bilateral salpingo-oophorectomy, modified radical hysterectomy, bilateral pelvic and low aortic lymphadenectomy, resection of right and
left paracolic gutter and pelvic peritoneum, infracolic omentectomy, appendectomy, optimal tumor debulking
Anesthesia: General Endotracheal intubation and tap block
Estimated blood loss: 400 cc
IV fluids: 3000 cc crystalloid
Urine output: 300 cc clear
Complications: None
Left Ovarian Mass now s/p ex lap, radical tumor debulking including bilateral salpingo-oophorectomy, modified radical hysterectomy
-management per [employer] Administrator Oncology
-clears
-pain control
-IVF
Essential Hypertension
-agree with lower dose Losartan immediately post-op, hold this evening
Hypothyroidism
-DIRECTOR SECURITY RISK MANAGEMENT Synthroid
Non-Insulin Dependent Diabetes
-hold DIRECTOR SECURITY RISK MANAGEMENT Metformin for now
-ISS low
DVT PPx Lovenox
FULL CODE
--- NOTE | 2024-05-02 15:35 | PTCARENOTE ---
Patient admitted from Pacu post total open hysterectomy with BSO,omentectomy,appendectomy,peritoneal resection and ventral hernia repair.She rates her pain at a 5-6 out of 10.All laparoscopic incisions are intact without drainage.There is a midline
incision with a Primaseal dressing with scant drainage.The rosi pad is dry .The patient is in her bed with her family at the bedside.The call ayers is within reach.
--- NOTE | 2024-05-02 17:20 | W.PN.GYNONC ---
Today's Communication
-
Intraoperative findings were reviewed with the patient
Impression / Plan
-
IV fluids 125 cc/h
Lawler in place
Labs are reviewed postop and appear to be as expected without any need for correction
Appreciate input by medicine team
Encourage incentive spirometry
Okay with clear liquids
Subjective / Interval History
-
Postop day 0 status post laparotomy, TONE/BSO omentectomy appendectomy bilateral pelvic lymphadenectomy and ventral hernia repair
Operative findings and procedures were discussed with patient
She appears to be comfortable with current analgesic regimen
Objective Data
-
Lab Results:
05/02/24 13:32
05/02/24 13:32
Physical Exam
Vital Signs / I&O
Vitals
Temp Pulse Resp BP Pulse Ox
97.7 F 86 18 131/65 98
05/02/24 16:25 05/02/24 16:25 05/02/24 16:25 05/02/24 16:25 05/02/24 16:25
I&O
04/30/24 05/01/24 05/02/24 05/03/24
06:59 06:59 06:59 06:59
Intake Total 300 / 300
Output Total 105 / 105
Balance 195 / 195
Physical Exam
General: Well Developed and No Apparent Distress
Respiratory: Clear and Non Labored Respirations
Cardiac: S1/S2 and Regular Rhythm
GI: Soft, Non Tender and Non Distended
Psych: Calm and Intact Judgement
Data Reviewed
-
Lab Data: Labs Reviewed
[2024-05-02] MEDS: TYLENOL 650 MG PO (18:10)
[2024-05-02] MEDS: DILAUDID 0.5 MG IV (18:10)
[2024-05-02] MEDS: LOVENOX 40 MG SC (18:11)
[2024-05-02 18:18] LABS: Glucose - Point of Care 231 mg/dl (70-99)
[2024-05-02] MEDS: NOVOLOG FLEXPEN-LOW RESISTANCE 2 UNITS SC (19:23)
[2024-05-02] MEDS: SENOKOT 8.6 MG PO (21:10)
[2024-05-02 21:23] LABS: Glucose - Point of Care 271 mg/dl (70-99)
[2024-05-03] MEDS: TYLENOL PO (00:05)
[2024-05-03] MEDS: TORADOL 15 MG IV ×2 (02:16→07:59)
[2024-05-03 03:00] VITALS: BP 125/60
[2024-05-03] MEDS: TYLENOL 650 MG PO ×4 (05:43→23:34)
[2024-05-03] MEDS: NON-FORMULARY ITEM 1 UNIT PO ×2 (05:44→07:58)
[2024-05-03 06:38] LABS: % Basophils 0.1 % (0-2); % Immature Granulocytes 0.3 % (0-0.5); % Lymphocytes 3.6 % (20.5-51.1); % Monocytes 5.7 % (1.7-9.3); % Neutrophils 90.3 % (42.2-75.2); Absolute Lymphocytes 0.5 10^3/uL (1.2-3.4); Absolute Monocytes 0.7 10^3/uL (0.1-0.6); Absolute Neutrophils 11.2 10^3/uL (1.4-6.5); Hematocrit 28.4 % (37.0-47.0); Hemoglobin 9.7 g/dL (12.0-16.0); Mean Corp Hgb Conc. 34.2 g/dL (33.0-37.0); Mean Corpuscular Hgb 30.2 pg (27.0-31.0); Mean Corpuscular Volume 88.5 fL (81.0-99.0); Mean Platelet Volume 10.5 fL (7.4-10.4); Nucleated Red Blood Cells % 0 %; Platelet Count 227 10^3/uL (130-400); Red Blood Cell Count 3.21 10^6/uL (4.20-5.40); Red Cell Dist. Width 12.4 % (11.5-14.5); White Blood Cell Count 12.4 10^3/uL (4.8-10.8)
--- NOTE | 2024-05-03 06:40 | PTCARENOTE ---
IFC removed per orders without any issues. Pt DTV by 1130.
[2024-05-03 06:42] LABS: ALT (SGPT) 16 U/L (0-35); AST (SGOT) 43 U/L (14-36); Albumin 3.3 g/dl (3.5-5.0); Alkaline Phosphatase 81 U/L (38-126); Blood Urea Nitrogen 14 mg/dl (7-17); Calcium 8.5 mg/dl (8.4-10.2); Carbon Dioxide 25 mmol/L (22-30); Chloride 111 mmol/L (98-107); Estimated Creatinine Clearance 113 ml/min; Glucose 207 mg/dl (70-99); Potassium 4.3 mmol/L (3.5-5.1); Sodium 142 mmol/L (135-145); Total Bilirubin 0.5 mg/dl (0.2-1.3); Total Protein 5.7 g/dl (6.3-8.2); eGFR > 60.00
[2024-05-03 07:12] VITALS: BP 129/52
[2024-05-03 07:16] LABS: Glucose - Point of Care 206 mg/dl (70-99)
--- NOTE | 2024-05-03 07:18 | W.PN.GS2 ---
Today's Communication / Plan
-
-- ADAT
-- Pain control: Tylenol, Toradol, Oxycodone
-- Trend H&H and hold Toradol and Lovenox if continued drift
-- RUCHI to remain in place likely on DC
-- Binder as tolerated for the first 2 weeks
-- No heavy lifting or strenuous activities for 4-6 weeks post-op
-- Call with questions or concerns
Assessment / Plan
-
Patient is a 53 yo F POD#1 s/p open primary repair of ventral/umbilical hernia in the setting of a RAL --> open excision of a LEFT ovarian mass
AVSS
Labs notable for reactive leukocytosis and anemia secondary to blood loss and hemodilution
Recovering well. No major post-op concerns.
-- ADAT
-- Pain control: Tylenol, Toradol, Oxycodone
-- Trend H&H and hold Toradol and Lovenox if continued drift
-- RUCHI to remain in place likely on DC
-- Binder as tolerated for the first 2 weeks
-- No heavy lifting or strenuous activities for 4-6 weeks post-op
-- Call with questions or concerns
Subjective Data
-
Date of Service: May 03, 2024
No major complaints. Reports some abdominal soreness. No nausea or emesis. No BM. Minimal ambulation.
Objective Data
-
Intake and Output
05/02/24 05/03/24 05/04/24
06:59 06:59 06:59
Intake Total 2460 / 2460
Output Total 1420 / 1420
Balance 1040 / 1040
Intake:
Oral fluids 660 / 660
IV fluids (Total) 1800 / 1800
Normosal 300 / 300
Output:
Drain Output (Total) 20 20
Right Abdomen Tian-Hoffmann 20
Urine, Lawler 1400 / 1400
Vital Signs
Temp Pulse Resp BP Pulse Ox
98 F 68 14 125/60 96
05/03/24 03:00 05/03/24 03:00 05/03/24 03:00 05/03/24 03:00 05/03/24 03:00
Lab Results
05/03/24 05:57
05/03/24 05:57
Calcium 8.5 mg/dl (8.4-10.2) 05/03/24 05:57
Total Bilirubin 0.5 mg/dl (0.2-1.3) 05/03/24 05:57
AST 43 U/L (14-36) H 05/03/24 05:57
ALT 16 U/L (0-35) 05/03/24 05:57
Alkaline Phosphatase 81 U/L (38-126) 05/03/24 05:57
Total Protein 5.7 g/dl (6.3-8.2) L 05/03/24 05:57
Albumin 3.3 g/dl (3.5-5.0) L 05/03/24 05:57
Physical Exam
-
Gen: NAD
Abd: soft, mild tenderness, ND, non-peritoneal, RUCHI minimal serosang, dressings c/d/i
[2024-05-03] MEDS: NSS 1000 IV (07:24)
[2024-05-03] MEDS: NOVOLOG FLEXPEN-LOW RESISTANCE 2 UNITS SC (07:56)
--- NOTE | 2024-05-03 08:09 | W.PN.GYNONC ---
Today's Communication
-
advance diet
d/c melissa- done
decrease IV fluids to 40cc/hr
Impression / Plan
-
POD1 recovery well
d/c melissa
advance diet
continue to encourage incentive spirometry and oob
decrease IV fluids to 40 cc/hr
Subjective / Interval History
-
She is feeling good this moving asking to start regular diet denies nausea and vomiting melissa has been removed but not up and moving yet Pain ok when sitting but has with movement trouble taking deep breathes but using incentive spirometer
Objective Data
-
Lab Results:
05/03/24 05:57
05/03/24 05:57
Physical Exam
Vital Signs / I&O
Vitals
Temp Pulse Resp BP Pulse Ox
98.5 F 62 15 129/52 95
05/03/24 07:12 05/03/24 07:12 05/03/24 07:12 05/03/24 07:12 05/03/24 07:12
I&O
05/01/24 05/02/24 05/03/24 05/04/24
06:59 06:59 06:59 06:59
Intake Total 2460 / 2460
Output Total 1420 / 1420
Balance 1040 / 1040
Physical Exam
VVS
afebrile
abdomen soft incisional tenderness incision dry and healing
drain just emptied
Respiratory: Non Labored Respirations
Cardiac: Regular Rhythm
Musculoskeletal: No Edema
--- NOTE | 2024-05-03 09:38 | W.PN.HOSP.TC ---
Today's Communication/Plan
-
see plan
Assessment / Plan
Assessment / Plan
Ms. Nery Samuel is a 53 yo woman with hx complex 18 cm cystic and solic mass from left ovary with CA 125 57, hx multiple leiomyoma and prior history endometriosis now s/p surgery morning of 05/02.
05/02/24
Procedure: Failed attempted robotic assisted TLH BSO, exploratory laparotomy, radical tumor debulking including bilateral salpingo-oophorectomy, modified radical hysterectomy, bilateral pelvic and low aortic lymphadenectomy, resection of right and
left paracolic gutter and pelvic peritoneum, infracolic omentectomy, appendectomy, optimal tumor debulking
Anesthesia: General Endotracheal intubation and tap block
Estimated blood loss: 400 cc
IV fluids: 3000 cc crystalloid
Urine output: 300 cc clear
Complications: None
Left Ovarian Mass now s/p ex lap, radical tumor debulking including bilateral salpingo-oophorectomy, modified radical hysterectomy
-management per [employer] Oncology
-confirming OK to advance diet
-pain control
-IVF
Essential Hypertension
-agree with lower dose Losartan immediately post-op
Hypothyroidism
-TRAINING COORDINATOR Synthroid
Non-Insulin Dependent Diabetes
-hold TRAINING COORDINATOR Metformin for now
-ISS low
DVT PPx Lovenox
FULL CODE
Anticipated Discharge: 24 - 48 hours
Subjective/Interval History
-
Date of Service: May 03, 2024
feeling well post op
feels hungry and wants to eat
Objective Data
-
Labs:
Laboratory Results
05/03/24
05:57
WBC 12.4 H
Hgb 9.7 L
Hct 28.4 L
Plt Count 227
Sodium 142
Potassium 4.3
Chloride 111 H
Carbon Dioxide 25
BUN 14
Creatinine 0.7
Glucose 207 H
Calcium 8.5
Total Bilirubin 0.5
AST 43 H
ALT 16
Alkaline Phosphatase 81
Vital Signs:
Vital Signs
Temp Pulse Resp BP Pulse Ox
98.5 F 62 15 129/52 95
05/03/24 07:12 05/03/24 07:12 05/03/24 07:12 05/03/24 07:12 05/03/24 07:12
I&O
05/02/24 05/03/24 05/04/24
06:59 06:59 06:59
Intake Total 2460 / 2460
Output Total 1420 / 1420
Balance 1040 / 1040
Review of Systems
-
History Source: Patient
All other systems: Reviewed and negative
Physical Exam
-
General: No Apparent Distress
HEENT: PERRLA
Respiratory: Clear to Auscultation
Cardiac: Regular Rhythm and S1/S2
GI: Other (dressing c/d/i)
Musculoskeletal: No Edema
Skin: Warm and Dry; Negative Rash
Neuro: AO x 3
Psych: Calm
Data Reviewed
-
Diagnostic Radiology: Report Reviewed by me
Labs: Labs Reviewed by me
[2024-05-03 12:14] LABS: Glucose - Point of Care 176 mg/dl (70-99)
[2024-05-03 12:15] LABS: Glycohemoglobin (HgbA1c) 5.7 % (4.0-5.6)
[2024-05-03] MEDS: ROXICODONE 5 MG PO (12:20)
[2024-05-03] MEDS: NOVOLOG FLEXPEN-LOW RESISTANCE 1 UNITS SC ×2 (12:22→17:40)
--- NOTE | 2024-05-03 14:40 | CM ---
POD # 1 hernia repair w/ Left ovarian mass
Met with pt at bedside
Pt lives with her in a 2 story home with 2 steps to enter, 12 steps to 2nd fl
Working FT, drives, independent
DME - none
SNF/HH - denies past hx
Has ride home when discharged
PCP - Dr Marisa Stone
Pharm - [facility]
Plan - anticipate home no needs vs with HH
[2024-05-03 15:03] VITALS: BP 151/68
[2024-05-03] MEDS: LOVENOX 40 MG SC (17:36)
[2024-05-03 17:40] LABS: Glucose - Point of Care 174 mg/dl (70-99)
[2024-05-03] MEDS: MOTRIN 600 MG PO (18:07)
[2024-05-03] MEDS: SENOKOT 8.6 MG PO (20:41)
[2024-05-03 21:37] LABS: Glucose - Point of Care 188 mg/dl (70-99)
[2024-05-03 22:50] VITALS: BP 123/64
[2024-05-04] MEDS: NON-FORMULARY ITEM 1 UNIT PO ×2 (05:02→08:23)
[2024-05-04] MEDS: TYLENOL 650 MG PO ×3 (05:02→18:09)
[2024-05-04 07:23] VITALS: BP 149/77
[2024-05-04 07:27] LABS: ALT (SGPT) 18 U/L (0-35); AST (SGOT) 32 U/L (14-36); Albumin 3.2 g/dl (3.5-5.0); Alkaline Phosphatase 90 U/L (38-126); Blood Urea Nitrogen 20 mg/dl (7-17); Calcium 8.9 mg/dl (8.4-10.2); Carbon Dioxide 23 mmol/L (22-30); Chloride 108 mmol/L (98-107); Estimated Creatinine Clearance 88 ml/min; Glucose 163 mg/dl (70-99); Potassium 4.4 mmol/L (3.5-5.1); Sodium 144 mmol/L (135-145); Total Bilirubin 0.4 mg/dl (0.2-1.3); Total Protein 5.6 g/dl (6.3-8.2); eGFR > 60.00
[2024-05-04 07:41] LABS: % Basophils 0.2 % (0-2); % Eosinophils 0.2 % (0-6); % Immature Granulocytes 0.6 % (0-0.5); % Monocytes 9.2 % (1.7-9.3); % Neutrophils 80.8 % (42.2-75.2); Absolute Immature Granulocytes 0.1 10^3/uL (0-0.05); Absolute Lymphocytes 1.1 10^3/uL (1.2-3.4); Absolute Monocytes 1.1 10^3/uL (0.1-0.6); Absolute Neutrophils 9.7 10^3/uL (1.4-6.5); Hematocrit 27.4 % (37.0-47.0); Hemoglobin 9.1 g/dL (12.0-16.0); Mean Corp Hgb Conc. 33.2 g/dL (33.0-37.0); Mean Corpuscular Hgb 29.6 pg (27.0-31.0); Mean Corpuscular Volume 89.3 fL (81.0-99.0); Mean Platelet Volume 10.9 fL (7.4-10.4); Nucleated Red Blood Cells % 0 %; Platelet Count 276 10^3/uL (130-400); Red Blood Cell Count 3.07 10^6/uL (4.20-5.40)
[2024-05-04] MEDS: NOVOLOG FLEXPEN-LOW RESISTANCE 1 UNITS SC (08:23)
[2024-05-04 08:24] LABS: Glucose - Point of Care 172 mg/dl (70-99)
[2024-05-04] MEDS: MOTRIN 600 MG PO (08:28)
--- NOTE | 2024-05-04 09:29 | W.PN.HOSP.TC ---
Today's Communication/Plan
-
see plan
Assessment / Plan
Assessment / Plan
Ms. Nery Samuel is a 53 yo woman with hx complex 18 cm cystic and solic mass from left ovary with CA 125 57, hx multiple leiomyoma and prior history endometriosis now s/p surgery morning of 05/02.
05/02/24
Procedure: Failed attempted robotic assisted TLH BSO, exploratory laparotomy, radical tumor debulking including bilateral salpingo-oophorectomy, modified radical hysterectomy, bilateral pelvic and low aortic lymphadenectomy, resection of right and
left paracolic gutter and pelvic peritoneum, infracolic omentectomy, appendectomy, optimal tumor debulking
Anesthesia: General Endotracheal intubation and tap block
Estimated blood loss: 400 cc
IV fluids: 3000 cc crystalloid
Urine output: 300 cc clear
Complications: None
Left Ovarian Mass now s/p ex lap, radical tumor debulking including bilateral salpingo-oophorectomy, modified radical hysterectomy
-management per Software Application Tester Oncology
-diet advanced
-encourage ambulation
-pain control
-IVF rate decreased
Essential Hypertension
-agree with lower dose Losartan immediately post-op
Hypothyroidism
-FLY MAKER Synthroid
Non-Insulin Dependent Diabetes
-hold FLY MAKER Metformin for now
-ISS low
-*patient can resume all home meds at [facility] without changes to regimen
Indigestion
-IV pepcid x 1
DVT PPx Lovenox
FULL CODE
Anticipated Discharge: 24 - 48 hours
Subjective/Interval History
-
Date of Service: May 04, 2024
has some indigestion
passing gas overnight
ambulated
feeling better today
Objective Data
-
Labs:
Laboratory Results
05/04/24
05:29
WBC 12.0 H
Hgb 9.1 L
Hct 27.4 L
Plt Count 276 D
Sodium 144
Potassium 4.4
Chloride 108 H
Carbon Dioxide 23
BUN 20 H
Creatinine 0.9
Glucose 163 H
Calcium 8.9
Total Bilirubin 0.4
AST 32
ALT 18
Alkaline Phosphatase 90
Vital Signs:
Vital Signs
Temp Pulse Resp BP Pulse Ox
98.7 F 63 16 149/77 98
05/04/24 07:23 05/04/24 07:23 05/04/24 07:23 05/04/24 07:23 05/04/24 07:23
I&O
05/03/24 05/04/24 05/05/24
06:59 06:59 06:59
Intake Total 2460 / 2460 2400 / 2400
Output Total 1420 / 1420 720 / 720
Balance 1040 / 1040 1680 / 1680
Review of Systems
-
History Source: Patient
All other systems: Reviewed and negative
Physical Exam
-
General: No Apparent Distress
HEENT: PERRLA
Respiratory: Clear to Auscultation
Cardiac: Regular Rhythm and S1/S2
GI: Other (dressing c/d/i; abdominal binder in place )
Musculoskeletal: No Edema
Skin: Warm and Dry; Negative Rash
Neuro: AO x 3
Psych: Calm
Data Reviewed
-
Diagnostic Radiology: Report Reviewed by me
Labs: Labs Reviewed by me
[2024-05-04] MEDS: NSS (PRESERVATIVE FREE) 8 ML IV (09:53)
[2024-05-04] MEDS: PEPCID 20 MG IV (09:53)
--- NOTE | 2024-05-04 11:55 | PTCARENOTE ---
pt c/o heart palpitations and light headedness. EKG performed, sinus bradycardia, dr lo notified. additional orders pending. symptoms resolved quickly
[2024-05-04 12:09] LABS: Magnesium 2.2 mg/dl (1.6-2.3)
[2024-05-04 12:30] LABS: Glucose - Point of Care 150 mg/dl (70-99)
[2024-05-04] MEDS: NOVOLOG FLEXPEN-LOW RESISTANCE SC ×2 (12:35→17:26)
[2024-05-04 13:43] VITALS: BP 145/85
--- NOTE | 2024-05-04 14:16 | W.PN.GYNONC ---
Today's Communication
-
N/A
Impression / Plan
-
POD1 recovery well
d/c melissa
advance diet
continue to encourage incentive spirometry and oob
decrease IV fluids to 40 cc/hr
POD 2- recovery well
d/c IV fluids- done
continue OOB and incentive spirometry
planning d/c in the next 24 to 48 hrs
Subjective / Interval History
-
post op day 2 - no complaints up and moving move did pass some gas this morning Tolerating liquids and some solids still can not eat a lot. She is able to take deep breathes and using the incentive spirometer better
Objective Data
-
Lab Results:
05/04/24 05:29
05/04/24 05:29
Physical Exam
Vital Signs / I&O
Vitals
Temp Pulse Resp BP Pulse Ox
98.7 F 63 16 149/77 98
05/04/24 07:23 05/04/24 07:23 05/04/24 07:23 05/04/24 07:23 05/04/24 07:23
I&O
05/02/24 05/03/24 05/04/24 05/05/24
06:59 06:59 06:59 06:59
Intake Total 2460 / 2460 2400 / 2400
Output Total 1420 / 1420 720 / 720
Balance 1040 / 1040 1680 / 1680
Physical Exam
VSS
afebrile
abdomen is soft and incisions healing drain is good
General: No Apparent Distress
Respiratory: Non Labored Respirations
Musculoskeletal: No Edema
Data Reviewed
-
Lab Data: Labs Reviewed
[2024-05-04] MEDS: ROXICODONE 5 MG PO (15:20)
[2024-05-04 15:37] VITALS: BP 162/71
[2024-05-04 17:14] LABS: Glucose - Point of Care 140 mg/dl (70-99)
[2024-05-04] MEDS: MYLICON 80 MG PO (17:25)
[2024-05-04] MEDS: LOVENOX 40 MG SC (18:09)
[2024-05-04] MEDS: SENOKOT 8.6 MG PO (21:04)
[2024-05-04 21:15] LABS: Glucose - Point of Care 142 mg/dl (70-99)
[2024-05-04 23:00] VITALS: BP 154/60
[2024-05-05] MEDS: TYLENOL 650 MG PO ×2 (00:08→05:02)
[2024-05-05] MEDS: NON-FORMULARY ITEM 1 UNIT PO ×2 (05:01→08:26)
[2024-05-05 07:10] VITALS: BP 151/70
[2024-05-05 07:16] LABS: Hematocrit 28.9 % (37.0-47.0); Hemoglobin 9.5 g/dL (12.0-16.0); Mean Corp Hgb Conc. 32.9 g/dL (33.0-37.0); Mean Corpuscular Hgb 29.2 pg (27.0-31.0); Mean Corpuscular Volume 88.9 fL (81.0-99.0); Mean Platelet Volume 10.1 fL (7.4-10.4); Platelet Count 276 10^3/uL (130-400); Red Blood Cell Count 3.25 10^6/uL (4.20-5.40); Red Cell Dist. Width 13.2 % (11.5-14.5); White Blood Cell Count 8.2 10^3/uL (4.8-10.8)
[2024-05-05 07:27] LABS: Glucose - Point of Care 144 mg/dl (70-99)
[2024-05-05 07:39] LABS: Blood Urea Nitrogen 19 mg/dl (7-17); Calcium 9.4 mg/dl (8.4-10.2); Carbon Dioxide 26 mmol/L (22-30); Chloride 106 mmol/L (98-107); Estimated Creatinine Clearance 88 ml/min; Glucose 144 mg/dl (70-99); Potassium 4.3 mmol/L (3.5-5.1); Sodium 142 mmol/L (135-145); eGFR > 60.00
[2024-05-05] MEDS: NOVOLOG FLEXPEN-LOW RESISTANCE SC ×3 (07:46→17:35)
[2024-05-05] MEDS: ZOFRAN 4 MG IV (09:00)
--- NOTE | 2024-05-05 09:31 | PN.CDI ---
CDI
- -
CDI:
Physician Documentation Request
Admit Date: 05/03/24 09:41
Dear Doctor Glynn,
Clinical Indicators:
Patient admitted with left ovarian mass.
Height: 5 ft 4 in
Weight: 243 lbs
BMI: 41.7
If possible, please provide an associated diagnosis related to the abnormal BMI ( > or = to 40), such as:
Obesity
BMI is not significant
Other, please specify
Use of terms such as suspected, likely, concern for, or probable (associated with a specific diagnosis that is being evaluated, monitored, or treated as if it exists) are acceptable and can be coded in the inpatient setting, when documented at the
time of discharge.
Thank you,
Xenia Ng RN BSN
CDI Specialist
available via tiger text
Please use your independent medical judgment in providing your response.
--- NOTE | 2024-05-05 09:37 | PN.CDI ---
CDI
- -
CDI:
Physician Documentation Request
Admit Date: 05/03/24 09:41
Dear Doctor Glynn,
Clinical Indicators:
Patient admitted with left ovarian mass; s/p radical tumor debulking including bilateral salpingo-oophorectomy, modified radical hysterectomy 05/02.
05/03 Surgery PN,'...anemia secondary to blood loss and hemodilution'
05/04 PN, 'pt c/o heart palpitations and light headedness.'
Anesthesia report, EBL 400 ml IVF/albumin 3550 ml
Hgb/Hct trend:
04/21/24 05/03/24 05/04/24
07:54 05:57 05:29
Hgb 12.6 9.7 L 9.1 L
Hct 37.3 28.4 L 27.4 L
Based on the above, could you clarify in the progress notes, the appropriate diagnosis, if significant, that supports the above abnormalities and additional evaluation, monitoring and/or treatment rendered?
Acute Blood Loss Anemia
Anemia due to acute blood loss and hemodilution
Anemia of chronic disease
Other, please specify
Use of terms such as suspected, likely, concern for, or probable (associated with a specific diagnosis that is being evaluated, monitored, or treated as if it exists) are acceptable and can be coded in the inpatient setting, when documented at the
time of discharge.
Thank you,
Xenia Ng RN BSN
CDI Specialist
available via tiger text
Please use your independent medical judgment in providing your response.
--- NOTE | 2024-05-05 09:48 | W.PN.HOSP.TC ---
Addendum entered and electronically signed by Karine Maki MD 05/06/24 09:38:
Acute Blood Loss Anemia
-Hg stable
Obesity
-dietary education
Original Note:
Today's Communication/Plan
-
obs series
Assessment / Plan
Assessment / Plan
Ms. Nery Samuel is a 53 yo woman with hx complex 18 cm cystic and solic mass from left ovary with CA 125 57, hx multiple leiomyoma and prior history endometriosis now s/p surgery morning of 05/02.
05/02/24
Procedure: Failed attempted robotic assisted TLH BSO, exploratory laparotomy, radical tumor debulking including bilateral salpingo-oophorectomy, modified radical hysterectomy, bilateral pelvic and low aortic lymphadenectomy, resection of right and
left paracolic gutter and pelvic peritoneum, infracolic omentectomy, appendectomy, optimal tumor debulking
Anesthesia: General Endotracheal intubation and tap block
Estimated blood loss: 400 cc
IV fluids: 3000 cc crystalloid
Urine output: 300 cc clear
Complications: None
Left Ovarian Mass now s/p ex lap, radical tumor debulking including bilateral salpingo-oophorectomy, modified radical hysterectomy
-management per Surveillance Dual Rate Officer Oncology
-now with increased distention, nausea this AM - ordered obs series
-IV Zofran/compazine PRN
-will restart fluids and place on clears
-updated Dr. Fenton
Essential Hypertension
-resume BID dosing Losartan
Hypothyroidism
-CENTRAL OFFICE REPAIRER SUPERVISOR Synthroid
Non-Insulin Dependent Diabetes
-hold CENTRAL OFFICE REPAIRER SUPERVISOR Metformin for now
-ISS low
-*patient can resume all home meds at [place] without changes to regimen
DVT PPx Lovenox
FULL CODE
Anticipated Discharge: 24 - 48 hours
Subjective/Interval History
-
Date of Service: May 05, 2024
complains of abdominal pain and bloating
small BM yesterday - mainly mucus
feels nauseated, zofran hasn't yet helped
Objective Data
-
Labs:
Laboratory Results
05/05/24
06:17
WBC 8.2
Hgb 9.5 L
Hct 28.9 L
Plt Count 276
Sodium 142
Potassium 4.3
Chloride 106
Carbon Dioxide 26
BUN 19 H
Creatinine 0.9
Glucose 144 H
Calcium 9.4
Vital Signs:
Vital Signs
Temp Pulse Resp BP Pulse Ox
99.1 F 64 16 151/70 99
05/05/24 07:10 05/05/24 07:10 05/05/24 07:10 05/05/24 07:10 05/05/24 07:10
I&O
05/04/24 05/05/24 05/06/24
06:59 06:59 06:59
Intake Total 2400 / 2400 2880 / 2880
Output Total 720 / 720 5 / 5
Balance 1680 / 1680 2875 / 2875
Review of Systems
-
History Source: Patient
All other systems: Reviewed and negative
Physical Exam
-
General: Other (appears feeling unwell)
HEENT: PERRLA
Respiratory: Clear to Auscultation
Cardiac: Regular Rhythm and S1/S2
GI: Other (feels distended; surgical dressing)
Musculoskeletal: No Edema
Skin: Warm and Dry; Negative Rash
Neuro: AO x 3
Psych: Calm
Data Reviewed
-
Diagnostic Radiology: Report Reviewed by me
Labs: Labs Reviewed by me
[2024-05-05] MEDS: COMPAZINE 5 MG IV (10:42)
[2024-05-05] MEDS: NSS 500 IV (10:43)
[2024-05-05] MEDS: LR 1000 IV ×2 (10:44→21:57)
[2024-05-05 11:36] LABS: Glucose - Point of Care 151 mg/dl (70-99)
[2024-05-05] MEDS: TYLENOL PO ×2 (12:24→17:20)
--- NOTE | 2024-05-05 14:28 | CM ---
Case management following for discharge planning
Chart reviewed. Met with pt
Reports abdominal pain and bloating. + nausea
Clear liquid diet/IVF's
obs series ordered
CM available for d/c needs
Plan - anticipate home no needs when medically ready
[2024-05-05] MEDS: MYLICON 80 MG PO ×2 (15:00→21:57)
[2024-05-05 15:15] VITALS: BP 142/82
--- NOTE | 2024-05-05 16:07 | W.PN.GYNONC ---
Today's Communication
-
awaiting return of bowel function
IV fluids and sips of clears
Impression / Plan
-
POD3
I have personally reviewed her obstruction series, images are consistent with dilated small bowel loops, in this clinical setting consistent with ileus.
She is afebrile, abdominal exam is without any rebound tenderness, leukocytosis is resolved. Patient does not appear toxic
Diet has been changed to n.p.o. but I will switch to clear liquids as tolerated
Patient is not using much pain medication, she may have oral Tylenol and Motrin. We discussed trying to avoid narcotics
I encouraged her to continue incentive spirometer and ambulation as we await return of bowel function.
Pathology is pending and I do not have any updates for the patient and family
Subjective / Interval History
-
Postop day 3 status post ex lap, TONE/BSO, omentectomy, pelvic and aortic lymph node biopsies, multiple peritoneal resections, repair of ventral hernia
Patient described feeling very distended and having no appetite over the last 24 hours, she continues to pass flatus, she is feeling better this afternoon, has had some sips of fluids intermittently.
No further bowel movements.
Objective Data
-
Lab Results:
05/05/24 06:17
05/05/24 06:17
Physical Exam
Vital Signs / I&O
Vitals
Temp Pulse Resp BP Pulse Ox
99.1 F 64 16 151/70 99
05/05/24 07:10 05/05/24 07:10 05/05/24 07:10 05/05/24 07:10 05/05/24 07:10
I&O
05/03/24 05/04/24 05/05/24 05/06/24
06:59 06:59 06:59 06:59
Intake Total 2460 / 2460 2400 / 2400 2880 / 2880
Output Total 1420 / 1420 720 / 720 5 / 5
Balance 1040 / 1040 1680 / 1680 2875 / 2875
Physical Exam
General: No Apparent Distress
Respiratory: Clear and Non Labored Respirations
Cardiac: S1/S2 and Regular Rhythm
GI: Soft, Non Tender, Normal Bowel Sounds and Other (Dressing was removed, incision with Steri-Strips, clean dry intact. RUCHI drain with minimal output)
Skin: Warm and Dry
Neuro: Awake, Alert, Oriented and AO x 3
Data Reviewed
-
Diagnostic Radiology: Image personally visualized and interpreted
Lab Data: Labs Reviewed
[2024-05-05] MEDS: LOVENOX 40 MG SC (17:18)
[2024-05-05 17:32] LABS: Glucose - Point of Care 140 mg/dl (70-99)
[2024-05-05] MEDS: COMPAZINE 10 MG IV (20:05)
[2024-05-05] MEDS: NON-FORMULARY ITEM PO (20:49)
[2024-05-05 21:31] LABS: Glucose - Point of Care 157 mg/dl (70-99)
[2024-05-05 23:26] VITALS: BP 173/77
[2024-05-06] MEDS: TYLENOL PO ×2 (01:01→05:26)
--- NOTE | 2024-05-06 02:24 | PTCARENOTE ---
05/05 2000 Patient requested simethicone for gas. Given. Patient then vomited x1 large amount of liquid. Stated she felt better after. No Nausea or gas pains after. States that she has been belching a lot but not passing much gas. Mir Reeves
ASUNCION made aware. Will cont to monitor if vomits ago may require NGT.
--- NOTE | 2024-05-06 05:00 | PTCARENOTE ---
Patient Vomited x1 again green bile. aprox. 250ml Mir ROLAND aware. Since not continuously vomiting wants to wait on NGT. Will continue to monitor. Patient denies and nausea at this time.
[2024-05-06] MEDS: NON-FORMULARY ITEM PO (05:26)
--- NOTE | 2024-05-06 05:35 | W.PN.UPDATE ---
Update Note
Progress Note Update
Reported by the nursing staff that patient vomited x2 during the last couple hours. Patient denied abdominal pain. On exam, normal abdominal sound, abdomen is soft with no tenderness. Patient encouraged to ambulate more and using incentive
spirometer.
[2024-05-06 07:26] VITALS: BP 165/70
[2024-05-06 07:30] LABS: % Basophils 0.3 % (0-2); % Eosinophils 1.6 % (0-6); % Lymphocytes 9.7 % (20.5-51.1); % Monocytes 8.7 % (1.7-9.3); % Neutrophils 78.7 % (42.2-75.2); Absolute Eosinophils 0.2 10^3/uL (0-0.7); Absolute Immature Granulocytes 0.1 10^3/uL (0-0.05); Absolute Lymphocytes 0.9 10^3/uL (1.2-3.4); Absolute Monocytes 0.8 10^3/uL (0.1-0.6); Absolute Neutrophils 7.2 10^3/uL (1.4-6.5); Hematocrit 30.5 % (37.0-47.0); Hemoglobin 9.9 g/dL (12.0-16.0); Mean Corp Hgb Conc. 32.5 g/dL (33.0-37.0); Mean Corpuscular Hgb 28.8 pg (27.0-31.0); Mean Corpuscular Volume 88.7 fL (81.0-99.0); Mean Platelet Volume 10.2 fL (7.4-10.4); Nucleated Red Blood Cells % 0 %; Platelet Count 309 10^3/uL (130-400); Red Blood Cell Count 3.44 10^6/uL (4.20-5.40); Red Cell Dist. Width 12.7 % (11.5-14.5); White Blood Cell Count 9.1 10^3/uL (4.8-10.8)
[2024-05-06 07:30] LABS: Glucose - Point of Care 158 mg/dl (70-99)
[2024-05-06] MEDS: NON-FORMULARY ITEM 1 UNIT PO ×2 (07:33→17:21)
[2024-05-06] MEDS: NOVOLOG FLEXPEN-LOW RESISTANCE 1 UNITS SC (07:45)
[2024-05-06 08:06] LABS: Blood Urea Nitrogen 15 mg/dl (7-17); Calcium 9.2 mg/dl (8.4-10.2); Carbon Dioxide 26 mmol/L (22-30); Chloride 103 mmol/L (98-107); Estimated Creatinine Clearance 113 ml/min; Glucose 142 mg/dl (70-99); Magnesium 1.8 mg/dl (1.6-2.3); Sodium 144 mmol/L (135-145); eGFR > 60.00
--- NOTE | 2024-05-06 09:27 | W.PN.HOSP.TC ---
Today's Communication/Plan
-
see plan
Assessment / Plan
Assessment / Plan
Ms. Nery Samuel is a 53 yo woman with hx complex 18 cm cystic and solic mass from left ovary with CA 125 57, hx multiple leiomyoma and prior history endometriosis now s/p surgery morning of 05/02.
05/02/24
Procedure: Failed attempted robotic assisted TLH BSO, exploratory laparotomy, radical tumor debulking including bilateral salpingo-oophorectomy, modified radical hysterectomy, bilateral pelvic and low aortic lymphadenectomy, resection of right and
left paracolic gutter and pelvic peritoneum, infracolic omentectomy, appendectomy, optimal tumor debulking
Anesthesia: General Endotracheal intubation and tap block
Estimated blood loss: 400 cc
IV fluids: 3000 cc crystalloid
Urine output: 300 cc clear
Complications: None
Left Ovarian Mass now s/p ex lap, radical tumor debulking including bilateral salpingo-oophorectomy, modified radical hysterectomy
Post-op Ileus
-management per Rehab Office Coordinator Oncology
-improved symptoms morning 05/05 and had 2 BM
-continue clears
-IV Zofran/compazine PRN
-IVF
Essential Hypertension
-resume BID dosing Losartan
Hypothyroidism
-RUBBER GOODS INSPECTOR Synthroid
Non-Insulin Dependent Diabetes
-hold RUBBER GOODS INSPECTOR Metformin for now
-ISS low
-*patient can resume all home meds at [place] without changes to regimen
DVT PPx Lovenox
FULL CODE
Anticipated Discharge: 24 - 48 hours
Subjective/Interval History
-
Date of Service: May 06, 2024
feeling better today
had 2 BM and passing gas
tolerating clears
Objective Data
-
Labs:
Laboratory Results
05/06/24
05:06
WBC 9.1
Hgb 9.9 L
Hct 30.5 L
Plt Count 309
Sodium 144
Potassium 4.0
Chloride 103
Carbon Dioxide 26
BUN 15
Creatinine 0.7
Glucose 142 H
Calcium 9.2
Vital Signs:
Vital Signs
Temp Pulse Resp BP Pulse Ox
99.1 F 80 15 165/70 96
05/06/24 07:26 05/06/24 07:26 05/06/24 07:26 05/06/24 07:26 05/06/24 07:26
I&O
05/05/24 05/06/24 05/07/24
06:59 06:59 06:59
Intake Total 2880 / 2880 1140 / 1140
Output Total
Balance 2875 / 2875 1135 / 1135
Review of Systems
-
History Source: Patient
All other systems: Reviewed and negative
Physical Exam
-
General: Other (appears feeling unwell)
HEENT: PERRLA
Respiratory: Clear to Auscultation
Cardiac: Regular Rhythm and S1/S2
GI: Other (feels distended; surgical dressing)
Musculoskeletal: No Edema
Skin: Warm and Dry; Negative Rash
Neuro: AO x 3
Psych: Calm
Data Reviewed
-
Diagnostic Radiology: Report Reviewed by me
Labs: Labs Reviewed by me
[2024-05-06] MEDS: ZOFRAN 4 MG IV (10:32)
[2024-05-06] MEDS: LR 1000 IV ×2 (10:42→22:19)
--- NOTE | 2024-05-06 11:17 | W.PN.GYNONC ---
Today's Communication
-
continue waiting for return of bowel function
Impression / Plan
-
POD4 exp lap complicated by ileus and slow return of bowel function
I have personally reviewed her obstruction series yesterday , images are consistent with dilated small bowel loops, in this clinical setting consistent with ileus.
She is afebrile, abdominal exam is without any rebound tenderness, leukocytosis is resolved. Patient does not appear toxic
The fact that her bowel is working is encouranging. I will hold off on NGT unless she continues to have more emesis later today
Patient is not using much pain medication, she may have oral Tylenol and Motrin. We discussed trying to avoid narcotics
I encouraged her to continue ambulation
BP elevated today , needs to take losartan with sip of water
Woody Fenton MD
Subjective / Interval History
-
reports 2 episodes of emesis overnight and one this am.
Also has had 2 BM this morning, more solid
Actually feels better and feels more hungry
she does not have any pain.
Objective Data
-
Lab Results:
05/06/24 05:06
05/06/24 05:06
Physical Exam
Vital Signs / I&O
Vitals
Temp Pulse Resp BP Pulse Ox
99.1 F 80 15 165/70 96
05/06/24 07:26 05/06/24 07:26 05/06/24 07:26 05/06/24 07:26 05/06/24 07:26
I&O
05/04/24 05/05/24 05/06/24 05/07/24
06:59 06:59 06:59 06:59
Intake Total 2400 / 2400 2880 / 2880 1140 / 1140
Output Total 720 / 720 5 / 5 5 / 5
Balance 1680 / 1680 2875 / 2875 1135 / 1135
Physical Exam
General: Well Developed and No Apparent Distress
Respiratory: Clear and Non Labored Respirations
Cardiac: S1/S2 and Regular Rhythm
GI: Soft, Normal Bowel Sounds and Other (still tympanic over upper quadrants, no rebound, incision is dry)
Neuro: Awake, Alert and AO x 3
Psych: Calm and Intact Judgement
Data Reviewed
-
Lab Data: Labs Reviewed
[2024-05-06 12:31] VITALS: BMI 41.5
[2024-05-06 12:34] LABS: Glucose - Point of Care 145 mg/dl (70-99)
[2024-05-06] MEDS: NOVOLOG FLEXPEN-LOW RESISTANCE SC ×2 (13:01→17:20)
--- NOTE | 2024-05-06 14:03 | W.PN.GS2 ---
Addendum entered and electronically signed by Landon Lewis MD 05/06/24 18:50:
I saw and examined the patient.
The CLAY TEMPERER's note was reviewed and I agree with the note.
Comment:
POD 4 OTNE/BSO with lymphadenectomy and primary pair of ventral hernia by Dr. Salmon with delayed return of bowel function
Overnight, had episodes of vomiting, but started passing flatus and had 2 BMs
AFVSS, ABD soft, mildly distended, tympanic in the upper abdomen, appropriately tender
Would back down to n.p.o. with clears; likely mild ileus, but with evidence of bowel function returning
-If persistent N/V, would consider AXR versus CT and possible NGT
Pain control with Tylenol, Motrin, oxycodone, Dilaudid as needed
Continue binder, OOB/IS
Care per PROFESSOR OF COMMUNICATION AND WRITING
Original Note:
Today's Communication / Plan
-
sips of clears as tolerated
Assessment / Plan
-
Patient is a 53 yo F POD#4 s/p open primary repair of ventral/umbilical hernia in the setting of a RAL --> open excision of a LEFT ovarian mass
AFVSS
Labs stable
Post op ileus with intermittent emesis but passing flatus now with 2 bm's this am
-- Sips of clears for comfort
-- Analgesics/antiemetics as needed
-- RUCHI to remain in place likely on DC
-- Binder as tolerated for the first 2 weeks
-- No heavy lifting or strenuous activities for 4-6 weeks post-op
-- Call with questions or concerns
Subjective Data
-
Date of Service: May 06, 2024
Patient seen and examined at bedside with Dr. Lewis. Reports intermittent nausea but has passed 2 stools this am and some flatus as well. Bloating still present but denies severe pain.
Objective Data
-
Intake and Output
05/05/24 05/06/24 05/07/24
06:59 06:59 06:59
Intake Total 2880 / 2880 1140 / 1140
Output Total
Balance 2875 / 2875 1135 / 1135
Intake:
Oral fluids 2880 / 2880
IV fluids (Total) 1140 / 1140
Output:
Drain Output (Total)
Right Abdomen Tian-Hoffmann
Other:
Number of approximated MODERATE 3
amounts of urine
Number of approximated LARGE 1 1
amounts of urine
Vital Signs
Temp Pulse Resp BP Pulse Ox
99.1 F 80 15 165/70 96
05/06/24 07:26 05/06/24 07:26 05/06/24 07:26 05/06/24 07:26 05/06/24 07:26
Lab Results
05/06/24 05:06
05/06/24 05:06
Calcium 9.2 mg/dl (8.4-10.2) 05/06/24 05:06
Magnesium 1.8 mg/dl (1.6-2.3) 05/06/24 05:06
Total Bilirubin 0.4 mg/dl (0.2-1.3) 05/04/24 05:29
AST 32 U/L (14-36) 05/04/24 05:29
ALT 18 U/L (0-35) 05/04/24 05:29
Alkaline Phosphatase 90 U/L (38-126) 05/04/24 05:29
Total Protein 5.6 g/dl (6.3-8.2) L 05/04/24 05:29
Albumin 3.2 g/dl (3.5-5.0) L 05/04/24 05:29
Physical Exam
-
Gen: NAD
Abd: soft, mild tenderness, ND, non-peritoneal, RUCHI minimal serosang, incisions c,d,i
[2024-05-06 15:38] VITALS: BP 178/89
[2024-05-06 15:55] VITALS: BP 169/82
[2024-05-06] MEDS: NORVASC 5 MG PO (16:25)
[2024-05-06 17:19] LABS: Glucose - Point of Care 145 mg/dl (70-99)
[2024-05-06] MEDS: LOVENOX 40 MG SC (17:20)
--- NOTE | 2024-05-06 20:20 | PTCARENOTE ---
Pt vomited 750cc green emesis. Pt states she was brushing her teeth and that made her vomit. General surgery Landon Lewis and Dr. Fenton notified. HNP made aware. Pt denies nausea. Pt is passing gas and has positive bowel sounds. Will continue to
monitor.
[2024-05-06 21:50] LABS: Glucose - Point of Care 153 mg/dl (70-99)
[2024-05-06 23:01] VITALS: BP 144/75
[2024-05-07] MEDS: NON-FORMULARY ITEM 1 UNIT PO ×2 (05:30→09:08)
[2024-05-07] MEDS: ZOFRAN 4 MG IV (05:33)
[2024-05-07 06:07] LABS: % Basophils 0.1 % (0-2); % Eosinophils 2.2 % (0-6); % Immature Granulocytes 1.2 % (0-0.5); % Lymphocytes 14.9 % (20.5-51.1); % Monocytes 10.4 % (1.7-9.3); % Neutrophils 71.2 % (42.2-75.2); Absolute Eosinophils 0.2 10^3/uL (0-0.7); Absolute Immature Granulocytes 0.1 10^3/uL (0-0.05); Absolute Lymphocytes 1.1 10^3/uL (1.2-3.4); Absolute Monocytes 0.8 10^3/uL (0.1-0.6); Absolute Neutrophils 5.2 10^3/uL (1.4-6.5); Hemoglobin 9.4 g/dL (12.0-16.0); Mean Corp Hgb Conc. 33.6 g/dL (33.0-37.0); Mean Corpuscular Hgb 29.3 pg (27.0-31.0); Mean Corpuscular Volume 87.2 fL (81.0-99.0); Nucleated Red Blood Cells % 0 %; Platelet Count 280 10^3/uL (130-400); Red Blood Cell Count 3.21 10^6/uL (4.20-5.40); Red Cell Dist. Width 12.4 % (11.5-14.5); White Blood Cell Count 7.2 10^3/uL (4.8-10.8)
[2024-05-07 06:34] LABS: ALT (SGPT) 27 U/L (0-35); AST (SGOT) 38 U/L (14-36); Albumin 3.4 g/dl (3.5-5.0); Alkaline Phosphatase 88 U/L (38-126); Blood Urea Nitrogen 16 mg/dl (7-17); Calcium 9.2 mg/dl (8.4-10.2); Carbon Dioxide 32 mmol/L (22-30); Chloride 100 mmol/L (98-107); Estimated Creatinine Clearance 98 ml/min; Glucose 148 mg/dl (70-99); Sodium 142 mmol/L (135-145); Total Bilirubin 0.6 mg/dl (0.2-1.3); Total Protein 5.7 g/dl (6.3-8.2); eGFR > 60.00
[2024-05-07 07:44] LABS: Glucose - Point of Care 149 mg/dl (70-99)
[2024-05-07 07:50] VITALS: BP 144/87
[2024-05-07] MEDS: NOVOLOG FLEXPEN-LOW RESISTANCE SC ×3 (08:03→17:30)
--- NOTE | 2024-05-07 08:27 | W.PN.HOSP.TC ---
Today's Communication/Plan
-
see plan
Assessment / Plan
Assessment / Plan
Ms. Nery Samuel is a 53 yo woman with hx complex 18 cm cystic and solic mass from left ovary with CA 125 57, hx multiple leiomyoma and prior history endometriosis now s/p surgery morning of 05/02.
05/02/24
Procedure: Failed attempted robotic assisted TLH BSO, exploratory laparotomy, radical tumor debulking including bilateral salpingo-oophorectomy, modified radical hysterectomy, bilateral pelvic and low aortic lymphadenectomy, resection of right and
left paracolic gutter and pelvic peritoneum, infracolic omentectomy, appendectomy, optimal tumor debulking
Anesthesia: General Endotracheal intubation and tap block
Estimated blood loss: 400 cc
IV fluids: 3000 cc crystalloid
Urine output: 300 cc clear
Complications: None
Left Ovarian Mass now s/p ex lap, radical tumor debulking including bilateral salpingo-oophorectomy, modified radical hysterectomy
Post-op Ileus
-management per Cafeteria Worker Oncology
-improved symptoms morning 05/05 and had 2 BM
-continue clears
-IV Zofran/compazine PRN
-IVF
Essential Hypertension
-resume BID dosing Losartan
Hypothyroidism
-OUTSIDE INDUSTRIAL SALES REPRESENTATIVE Synthroid
Non-Insulin Dependent Diabetes
-hold OUTSIDE INDUSTRIAL SALES REPRESENTATIVE Metformin for now
-ISS low
-*patient can resume all home meds at [place] without changes to regimen
DVT PPx Lovenox
FULL CODE
Anticipated Discharge: 24 - 48 hours
Subjective/Interval History
-
Date of Service: May 07, 2024
feeling better
last vomited 12 hours ago
passing gas
Objective Data
-
Labs:
Laboratory Results
05/07/24
05:38
WBC 7.2
Hgb 9.4 L
Hct 28.0 L
Plt Count 280
Sodium 142
Potassium 4.0
Chloride 100
Carbon Dioxide 32 H
BUN 16
Creatinine 0.8
Glucose 148 H
Calcium 9.2
Total Bilirubin 0.6
AST 38 H
ALT 27
Alkaline Phosphatase 88
Vital Signs:
Vital Signs
Temp Pulse Resp BP Pulse Ox
97.3 F 83 18 144/75 95
05/06/24 23:01 05/06/24 23:01 05/06/24 23:01 05/06/24 23:01 05/06/24 23:01
I&O
05/06/24 05/07/24 05/08/24
06:59 06:59 06:59
Intake Total 1140 / 1140 960 / 960
Output Total 5 / 5 1300 / 1300
Balance 1135 / 1135 -340 / -340
Review of Systems
-
History Source: Patient
All other systems: Reviewed and negative
Physical Exam
-
General: No Apparent Distress
HEENT: PERRLA
Respiratory: Clear to Auscultation; Negative Wheezes
Cardiac: Regular Rhythm and S1/S2
GI: Other (binder in place)
Musculoskeletal: No Edema
Skin: Warm and Dry; Negative Rash
Neuro: AO x 3
Psych: Calm
Data Reviewed
-
Diagnostic Radiology: Report Reviewed by me
Labs: Labs Reviewed by me
--- NOTE | 2024-05-07 08:48 | W.PN.GS2 ---
Addendum entered and electronically signed by Landon Lewis MD 05/07/24 16:40:
The AGRICULTURAL SCIENCES PROFESSOR's note was reviewed and I agree with the note. The CT scan was also reviewed and personally interpreted, concerning for postoperative ileus
Comment:
Recommend placement of NGT, continue n.p.o. with IVF
Continue abdominal binder
Kidney continue care per Review Rn Onc
Original Note:
Today's Communication / Plan
-
NPO
NGT if vomiting recurs
Assessment / Plan
-
Patient is a 53 yo F POD#5 s/p open primary repair of ventral/umbilical hernia in the setting of a RAL --> open excision of a LEFT ovarian mass
AFVSS
Labs stable
Post op ileus, last emesis was around 10pm last night, denies active nausea. May be resolving
-- Sips of clears for comfort, otherwise would keep NPO
-- Analgesics/antiemetics as needed
-- RUCHI to remain in place likely on DC
-- Binder as tolerated for the first 2 weeks
-- No heavy lifting or strenuous activities for 4-6 weeks post-op
-- May need repeat CT scan and NGT placement if nausea persists
Subjective Data
-
Date of Service: May 07, 2024
Patient seen and examined at bedside. Vomited last night but no emesis since. Denies active nausea. Passing a lot of flatus but no BM.
Objective Data
-
Intake and Output
05/06/24 05/07/24 05/08/24
06:59 06:59 06:59
Intake Total 1140 / 1140 960 / 960
Output Total 1300 / 1300
Balance 1135 / 1135 -340 / -340
Intake:
Oral fluids 960 / 960
IV fluids (Total) 1140 / 1140
Output:
Emesis 1300 / 1300
Drain Output (Total)
Right Abdomen Tian-Hoffmann
Other:
Number of approximated MODERATE 2
amounts of urine
Number of approximated LARGE 1
amounts of urine
Vital Signs
Temp Pulse Resp BP Pulse Ox
98.6 F 82 18 144/87 98
05/07/24 07:50 05/07/24 07:50 05/07/24 07:50 05/07/24 07:50 05/07/24 07:50
Lab Results
05/07/24 05:38
05/07/24 05:38
Calcium 9.2 mg/dl (8.4-10.2) 05/07/24 05:38
Magnesium 1.8 mg/dl (1.6-2.3) 05/06/24 05:06
Total Bilirubin 0.6 mg/dl (0.2-1.3) 05/07/24 05:38
AST 38 U/L (14-36) H 05/07/24 05:38
ALT 27 U/L (0-35) 05/07/24 05:38
Alkaline Phosphatase 88 U/L (38-126) 05/07/24 05:38
Total Protein 5.7 g/dl (6.3-8.2) L 05/07/24 05:38
Albumin 3.4 g/dl (3.5-5.0) L 05/07/24 05:38
Physical Exam
-
Gen: NAD
Abd: soft, mild tenderness, ND, non-peritoneal, RUCHI minimal serosang, incisions c,d,i
--- NOTE | 2024-05-07 10:08 | W.PN.GYNONC ---
Today's Communication
-
CT A/P with oral contrast
Impression / Plan
-
POD5 exp lap complicated by ileus and slow return of bowel function
She is afebrile, abdominal exam is without any rebound tenderness, leukocytosis is resolved. Patient does not appear toxic
The fact that her bowel is working is encouraging.
I will proceed with a CT of abdomen and pelvis to reassess for progress of p.o. contrast through small bowel.
I will hold off on NGT .
Patient is not using any analgesics at this time
I encouraged her to continue ambulation
1 episode of hypotension yesterday treated with amlodipine, continue Cozaar 50 mg p.o. twice daily, blood pressure is normal today.
Appreciate assistance from general surgery and hospitalist teams.
Woody Fenton MD
Subjective / Interval History
-
POD 5
She feels very well today and does not have any evidence of nausea, she has passed multiple episodes of flatus today. She does not have any pain or discomfort.
She did have emesis last night but suspects it is from brushing her teeth.
She has been ambulating without difficulty
Objective Data
-
Lab Results:
05/07/24 05:38
05/07/24 05:38
Physical Exam
Vital Signs / I&O
Vitals
Temp Pulse Resp BP Pulse Ox
98.6 F 82 18 144/87 98
05/07/24 07:50 05/07/24 07:50 05/07/24 07:50 05/07/24 07:50 05/07/24 07:50
I&O
05/05/24 05/06/24 05/07/24 05/08/24
06:59 06:59 06:59 06:59
Intake Total 2880 / 2880 1140 / 1140 960 / 960
Output Total 1300 / 1300
Balance 2875 / 2875 1135 / 1135 -340 / -340
Physical Exam
General: No Apparent Distress and Comfortable
Respiratory: Clear and Non Labored Respirations
Cardiac: S1/S2 and Regular Rhythm
GI: Soft and Other (There is persistent tympany over right and left upper quadrants suspect over transverse colon. Incision is healing appropriately intact dry. RUCHI drain present with minimal output)
Skin: Warm
Neuro: Awake and AO x 3
Psych: Intact Judgement
[2024-05-07] MEDS: LR 1000 IV ×2 (10:51→23:54)
[2024-05-07] MEDS: OMNIPAQUE 50 ML PO (10:51)
[2024-05-07] MEDS: COMPAZINE 10 MG IV (11:03)
[2024-05-07 12:19] LABS: Glucose - Point of Care 143 mg/dl (70-99)
[2024-05-07] MEDS: MYLICON 80 MG PO (15:18)
[2024-05-07 15:30] VITALS: BP 159/89
--- NOTE | 2024-05-07 16:15 | PTCARENOTE ---
Assumed care of patient at this time from Veronica PLEITEZ.
[2024-05-07] MEDS: NSS (PRESERVATIVE FREE) 0.25 ML IV (16:33)
[2024-05-07] MEDS: ATIVAN 0.5 MG IV (16:33)
[2024-05-07] MEDS: HURRICAINE SPRAY 1 APPLIC TOPICAL (16:35)
--- NOTE | 2024-05-07 16:59 | PTCARENOTE ---
2 RNs had unsuccessful attempts for NGT insertion; RADIOLOGY ADMINISTRATOR Tania Ag notified and successfully inserted NGT, 2300mls of liquid green emesis prior to hooking up to suction (see I&O).
--- NOTE | 2024-05-07 17:01 | W.PN.UPDATE ---
Update Note
Progress Note Update
S/B: Reviewed CT imaging with 'morelia Lewis and [place]. Severe post op ileus present, patient with ongoing nausea. NGT deemed necessary, unfortunately, nursing unable to place with 2 attempts.
A: RN administered 0.5mg IV Ativan at bedside and I utilized one spray of Hurricaine spray to the back of the throat and one to the tip of the tube prior to placement. Patient sat in chair upright and I was able to place a 16fr [place] NGT without
difficulty. Patient vomited approx. 2.4 liters of bilious emesis during placement with another 400ml of bilious drainage immediately suctioned via the NGT. Minimal light epistaxis with placement, resolved quickly.
R: Continue with NGT to wall suction. Will obtain XR to ensure NGT is in place as flushes will be necessary given thick sludge noted within the tube. Chloraseptic spray and small amounts of ice chips as needed for throat irritation.
[2024-05-07] MEDS: LOVENOX 40 MG SC (17:32)
[2024-05-07 17:57] LABS: Glucose - Point of Care 137 mg/dl (70-99)
--- NOTE | 2024-05-07 19:43 | W.PN.UPDATE ---
Update Note
Progress Note Update
CT performed earlier shows:
CT Abd/pel W Iv And Oral Contr dated 05/07/2024 10:06 AM.
Indication: post op ileus, Nausea and vomiting.
Comparison: CT chest/abdomen/pelvis 04/18/2024.
Technique: After the injection of intravenous nonionic iodinated contrast, axial CT of the abdomen, and pelvis was performed from the top of the hemidiaphragms to the inferior osseous pelvis. 2D reformats were obtained. Automatic exposure control
radiation dose reduction technology was utilized.
Findings:
Visualized portion of the lung bases demonstrates right lower lobe atelectasis, new from prior.
Redemonstration of a few punctate hypoattenuating hepatic foci too small to accurately characterize, likely cysts. Stable 3 mm calculus at the right ureteropelvic junction and associated moderate right hydronephrosis, similar to prior. Stable
nonobstructing right intrarenal calculi. Stable simple upper pole left renal cysts and additional tiny hypoattenuating left renal focus too small to accurately characterize. The spleen, adrenal glands and pancreas are within normal limits.
Gallbladder is without calcified stones.
No abdominal aortic aneurysm.
Interval postoperative changes of left adnexal mass resection. There are a few small areas of soft tissue density within the posterior pelvis bilaterally measuring up to 2.5 cm (series 201, image 75), not definitely seen previously.
Postoperative subcutaneous edema and emphysema along the anterior abdominal wall, with subcutaneous surgical drain in place.
Dilated fluid-filled small bowel loops throughout the abdomen measuring up to 4.9 cm, new from prior. No discrete transition point. Moderate gastric distention. Small amounts of fluid in the pelvis. Scattered small amounts of free intraperitoneal
air within the anterior pelvis.
The bowel is without evidence of perforation or abscess.
Bladder unremarkable.
Grossly no suspicious osseous lesions are identified.
IMPRESSION:
1. Findings most in keeping with severe postoperative ileus. No tylor obstruction. Progress films recommended.
2. Interval postoperative changes of left adnexal mass resection. There are a few small areas of soft tissue density within the posterior pelvis bilaterally measuring up to 2.5 cm (series 201, image 75), not definitely seen previously. Findings
likely represent postoperative inflammatory change, less likely metastatic or residual soft tissue deposits. Recommend continued attention on follow-up exams.
3. Additional stable chronic changes as described.
Up-to-date CT equipment and radiation dose reduction techniques were employed. CTDIvol: 23.4 mGy. DLP: 1315 mGy-cm.
Electronically signed by Silverio Dorsey, 05/07/2024 2:25 PM
A/P: discussed and reviewed with Dr Lewis in surgery
Proceed with NGT and bowel rest for decompression. Appreciate Tania Ag assisting with placement of NGT
IV fluids to continue , meds to be given IV
Woody Fenton
[2024-05-07] MEDS: CHLORASEPTIC/SORE THROAT SPRAY 1 SPRAY PO (20:18)
[2024-05-07] MEDS: NON-FORMULARY ITEM PO (20:20)
[2024-05-07 23:19] VITALS: BP 140/76
[2024-05-07 23:52] LABS: Glucose - Point of Care 132 mg/dl (70-99)
[2024-05-07] MEDS: LOPRESSOR 5 MG IV (23:53)
[2024-05-08 06:14] LABS: Glucose - Point of Care 115 mg/dl (70-99)
[2024-05-08] MEDS: LOPRESSOR 5 MG IV ×3 (06:22→17:52)
[2024-05-08] MEDS: NON-FORMULARY ITEM PO ×3 (06:56→19:37)
[2024-05-08 07:10] VITALS: BP 130/73
--- NOTE | 2024-05-08 07:50 | W.PN.GYNONC ---
Today's Communication
-
x ray follow up after CT
continue NGT
Impression / Plan
-
POD6 exp lap complicated by ileus , now with NGT
CT reviewed no transition point identified
its encouraging she is having bowel function both flatus and BM
Cozaar on hold, on IV metoprolol
Monitor BS, insluin as needed
Appreciate assistance from general surgery and hospitalist teams.
Woody Fenton MD
Subjective / Interval History
-
POD6
After placement of NG tube yesterday she feels much better and nausea has resolved. She had 2.5 L emesis and has had about 1 L output since then.
She is continuing to pass flatus, has had a bowel movement early this morning.
Reports actually feeling hungry
Objective Data
-
Lab Results:
Labs are pending this morning
Physical Exam
Vital Signs / I&O
Vitals
Temp Pulse Resp BP Pulse Ox
98.6 F 72 15 130/73 99
05/08/24 07:10 05/08/24 07:10 05/08/24 07:10 05/08/24 07:10 05/08/24 07:10
I&O
05/06/24 05/07/24 05/08/24 05/09/24
06:59 06:59 06:59 06:59
Intake Total 1140 / 1140 960 / 960 1070 / 1070 960 / 960
Output Total 5 / 5 1300 / 1300 3413 / 3413
Balance 1135 / 1135 -340 / -340 -2343 / -2343 960 / 960
Physical Exam
General: No Apparent Distress
Respiratory: Clear
Cardiac: S1/S2 and Regular Rhythm
GI: Soft, Non Tender, Non Distended and Other (Incision is clean dry intact)
Neuro: Awake, Alert, Oriented, AO x 3 and No Motor Deficits
Psych: Calm and Intact Judgement
Data Reviewed
-
CT Scan: Image personally visualized and interpreted
Lab Data: Labs Reviewed
--- NOTE | 2024-05-08 08:01 | PTCARENOTE ---
Addendum entered by Edna Oquendo RN 05/08/24 08:36:
Patient returned via stretcher; DONI Ag in room and reconnected patient to NGT.
Original Note:
Transport arrived with stretcher, patient's NGT clamped for CR abdomen (flat plate and upright).
[2024-05-08 09:32] LABS: Hematocrit 29.1 % (37.0-47.0); Hemoglobin 9.5 g/dL (12.0-16.0); Mean Corp Hgb Conc. 32.6 g/dL (33.0-37.0); Mean Corpuscular Hgb 28.8 pg (27.0-31.0); Mean Corpuscular Volume 88.2 fL (81.0-99.0); Mean Platelet Volume 10.1 fL (7.4-10.4); Platelet Count 270 10^3/uL (130-400); Red Cell Dist. Width 13.3 % (11.5-14.5); White Blood Cell Count 7.3 10^3/uL (4.8-10.8)
--- NOTE | 2024-05-08 09:35 | W.PN.GS2 ---
Today's Communication / Plan
-
Patient's RUCHI drain removed. Patient to continue to be NPO as her Ileus resolves. Continue monitoring fluid from NGT and return of bowel function. Patient counseled to ambulate more to help bring back return of bowel function.
Assessment / Plan
-
Assessment:
Patient is a 53 yo F POD#6 with a recent history of open primary repair of ventral/umbilical hernia in the setting of a RAL --> open excision of a LEFT ovarian mass -> now presenting with severe post op ileus.
Plan:
AFVSS
Labs stable
Severe post op ileus, NGT placed yesterday -> continues to drain green bilious fluid -> nausea has improved greatly
Repeat CT on 05/07 showed severe postoperative ileus with no tylor obstruction
Abdominal X-Ray 05/08 showed severe air distention of small bowel loops and nasogastric tube in correct position. No radiographic evidence of abnormal gastric or colonic distention
-- Sips of clears for comfort, NPO until Ileus begins to resolve
-- Counseled importance of ambulation to help in bringing back bowel function
-- Analgesics/antiemetics as needed
-- RUCHI drain removed without any complications
-- Binder as tolerated for the first 2 weeks
-- No heavy lifting or strenuous activities for 4-6 weeks post-op
-- Repeat Abdominal X-Ray in the AM tomorrow
DVT prophylaxis: Lovenox
Subjective Data
-
Date of Service: May 08, 2024
Patient has been feeling well and less nauseated after placement of NG tube. She has been able to pass flatus and had a bowel movement early this morning. She requested getting her RUCHI drain removed if possible as she wants to get as many tubes out
as possible when she can.
Objective Data
-
Intake and Output
05/07/24 05/08/24 05/09/24
06:59 06:59 06:59
Intake Total 960 / 960 1070 / 1070 960 / 960
Output Total 1300 / 1300 3413 / 3413
Balance -340 / -340 -2343 / -2343 960 / 960
Intake:
Oral fluids 960 / 960 150 / 150
IV fluids (Total) 800 / 800 960 / 960
Amount instilled into GI Tube ( 120 / 120
Total)
[place] Sump 120 / 120
Output:
Emesis 1300 / 1300 2300 / 2300
Drain Output (Total) 3 3
Right Abdomen Tian-Hoffmann 3
Gastrointestinal tube output ( 1109
Total)
[place] Sump 1109 / 111
Other:
Number of approximated MODERATE 2 3
amounts of urine
Number of approximated LARGE 1
amounts of urine
Vital Signs
Temp Pulse Resp BP Pulse Ox
98.6 F 72 15 130/73 99
05/08/24 07:10 05/08/24 07:10 05/08/24 07:10 05/08/24 07:10 05/08/24 07:10
Lab Results
05/08/24 08:43
Calcium 9.2 mg/dl (8.4-10.2) 05/07/24 05:38
Magnesium 1.8 mg/dl (1.6-2.3) 05/06/24 05:06
Total Bilirubin 0.6 mg/dl (0.2-1.3) 05/07/24 05:38
AST 38 U/L (14-36) H 05/07/24 05:38
ALT 27 U/L (0-35) 05/07/24 05:38
Alkaline Phosphatase 88 U/L (38-126) 05/07/24 05:38
Total Protein 5.7 g/dl (6.3-8.2) L 05/07/24 05:38
Albumin 3.4 g/dl (3.5-5.0) L 05/07/24 05:38
Physical Exam
-
Gen: NAD
Abd: soft, mild tenderness, mildly distended, RUCHI minimal serosang, incisions non-erythematous and non-draining
NGT: draining green bilious fluid
[2024-05-08 09:53] LABS: Blood Urea Nitrogen 14 mg/dl (7-17); Calcium 8.6 mg/dl (8.4-10.2); Carbon Dioxide 31 mmol/L (22-30); Chloride 100 mmol/L (98-107); Estimated Creatinine Clearance 98 ml/min; Glucose 116 mg/dl (70-99); Magnesium 1.8 mg/dl (1.6-2.3); Potassium 3.6 mmol/L (3.5-5.1); Sodium 142 mmol/L (135-145); eGFR > 60.00
[2024-05-08 11:03] VITALS: BP 136/65
[2024-05-08] MEDS: KCL 1010 MEQ IV (12:03)
[2024-05-08 12:22] LABS: Glucose - Point of Care 122 mg/dl (70-99)
--- NOTE | 2024-05-08 12:23 | W.PN.HOSP.TC ---
Today's Communication/Plan
-
NGT to suction
Resume Synthroid at IV adjusted dose
Assessment / Plan
Assessment / Plan
Ms. Nery Samuel is a 53 yo woman with hx complex 18 cm cystic and solic mass from left ovary with CA 125 57, hx multiple leiomyoma and prior history endometriosis now s/p surgery morning of 05/02.
05/02/24
Procedure: Failed attempted robotic assisted TLH BSO, exploratory laparotomy, radical tumor debulking including bilateral salpingo-oophorectomy, modified radical hysterectomy, bilateral pelvic and low aortic lymphadenectomy, resection of right and
left paracolic gutter and pelvic peritoneum, infracolic omentectomy, appendectomy, optimal tumor debulking
Anesthesia: General Endotracheal intubation and tap block
Estimated blood loss: 400 cc
IV fluids: 3000 cc crystalloid
Urine output: 300 cc clear
Complications: None
Left Ovarian Mass now s/p ex lap, radical tumor debulking including bilateral salpingo-oophorectomy, modified radical hysterectomy
Post-op Ileus
-management per Herbarium Curator Oncology
-improved symptoms along with BMs and Nausea although still with significant green bilious draiange from NGT
-NPO
-Cont NGT to suction
-RUCHI drain removed
-IV Zofran/compazine PRN
-F/u Surg recs
Essential Hypertension
-resume BID dosing Losartan once able to tolerate PO
Hypothyroidism
-AUTOMOTIVE PAINT TECHNICIAN Synthroid - switch to IV at 70%
Non-Insulin Dependent Diabetes
-hold AUTOMOTIVE PAINT TECHNICIAN Metformin for now
-ISS low
-*patient can resume all home meds at [place] without changes to regimen
DVT PPx Lovenox
FULL CODE
Anticipated Discharge: > 48 hours
Subjective/Interval History
-
Date of Service: May 08, 2024
Passing flatus, had a bowel movement at 2 AM this morning. RUCHI drain removed. Continues to drain green bilious fluid, although appears to be at a reduced rate now. Nausea improved
Objective Data
-
Labs:
Laboratory Results
05/08/24
08:43
WBC 7.3
Hgb 9.5 L
Hct 29.1 L
Plt Count 270
Sodium 142
Potassium 3.6
Chloride 100
Carbon Dioxide 31 H
BUN 14
Creatinine 0.8
Glucose 116 H
Calcium 8.6
Vital Signs:
Vital Signs
Temp Pulse Resp BP Pulse Ox
98.4 F 70 15 136/65 99
05/08/24 11:03 05/08/24 12:04 05/08/24 11:03 05/08/24 12:04 05/08/24 07:10
I&O
05/07/24 05/08/24 05/09/24
06:59 06:59 06:59
Intake Total 960 / 960 1070 / 1070 960 / 960
Output Total 1300 / 1300 3413 / 3413
Balance -340 / -340 -2343 / -2343 960 / 960
Review of Systems
-
History Source: Patient
All other systems: Not reviewed unless documented
Physical Exam
-
General: No Apparent Distress
HEENT: PERRLA
Respiratory: Clear to Auscultation; Negative Wheezes
Cardiac: Regular Rhythm and S1/S2
GI: Other (binder in place)
Musculoskeletal: No Edema
Skin: Warm and Dry; Negative Rash
Neuro: AO x 3
Psych: Calm
--- NOTE | 2024-05-08 12:29 | CM ---
Case management following for discharge planning
Chart reviewed, met with pt
Pt NPO. Has NGT - has ileus
Encouraged to ambulate
RUCHI drained d/c'ed today
CM available for d/c needs
Plan - anticipate home no needs when medically ready
[2024-05-08 15:08] VITALS: BP 134/57
[2024-05-08] MEDS: LEVOTHROID 70 MCG IV (17:52)
[2024-05-08] MEDS: LOVENOX 40 MG SC (17:52)
[2024-05-08 18:09] LABS: Glucose - Point of Care 110 mg/dl (70-99)
[2024-05-08 18:55] VITALS: BP 115/72
[2024-05-08 21:57] LABS: Glucose - Point of Care 105 mg/dl (70-99)
[2024-05-09] VITALS (7 sets, daily range): BP systolic 122–147; BP diastolic 61–89
[2024-05-09] MEDS: LOPRESSOR 5 MG IV ×3 (00:24→14:25)
[2024-05-09] MEDS: KCL 1010 MEQ IV ×2 (00:25→15:36)
[2024-05-09 06:03] LABS: Glucose - Point of Care 101 mg/dl (70-99)
--- NOTE | 2024-05-09 07:21 | W.PN.GS2 ---
Addendum entered and electronically signed by Linden Salmon MD 05/09/24 08:22:
Patient seen and examined. Agree with assessment plan as documented below.
No major complaints. Denies abdominal pain. No nausea or vomiting. Passing flatus, no BM in 24 hours. Afebrile.
Gen: NAD
HEENT: NGT with light bilious outputs
Abd: soft, minimal tenderness, mild distension (difficult exam with obesity), non-peritoneal, incisions c/d/i - no erythema, ecchymosis, or drainage, abdominal binder in place
Patient is a 53 yo F POD#7 with a recent history of open primary repair of ventral/umbilical hernia in the setting of a RAL --> open excision of a LEFT ovarian mass -> now presenting with severe post op ileus.
Repeat CT on 05/07 showed severe postoperative ileus with no tylor obstruction
Abdominal X-Ray 05/08 showed severe air distention of small bowel loops and nasogastric tube in correct position. No radiographic evidence of abnormal gastric or colonic distention
AFVSS
Labs stable
Post op ileus, NGT placed 05/07 -> continues to drain green bilious fluid -> nausea has improved greatly -> still draining > 1000mL of fluid
-- Repeat Abdominal X-Ray in the AM today
-- Sips of clears for comfort, NPO and NGT until ileus resolved (radiographic and NGT outputs), OK to clamp tube for ambulation, will need to consider TPN if no resolution in the next 24 to 48 hours, though appears to be close and will attempt to
mitigate risks of PICC line and TPN for now
-- OOB/ambulate -> can have some gum to stimulate bowel as well
-- Analgesics/antiemetics as needed, ordered IV Toradol 15mg Q6PRN to minimize narcotics
-- Patient started on IV Levothyroxine yesterday -> continue IV until patient can tolerate PO
-- IV Protonix 40 mg ordered- gastric reflux
-- RUCHI drain removed yesterday- no drainage noted today
-- Binder as tolerated for the first 2 weeks
-- No heavy lifting or strenuous activities for 4-6 weeks post-op
Original Note:
Today's Communication / Plan
-
Patient to have repeat Abdominal X-ray today in the AM. Patient to remain with NGT until her bowel movements become more regular and her NGT fluid clears up. Patient to continue ambulation to help in return of bowel function.
Assessment / Plan
-
Assessment:
Patient is a 53 yo F POD#7 with a recent history of open primary repair of ventral/umbilical hernia in the setting of a RAL --> open excision of a LEFT ovarian mass -> now presenting with severe post op ileus.
Plan:
AFVSS
Labs stable
Severe post op ileus, NGT placed 05/07 -> continues to drain green bilious fluid -> nausea has improved greatly -> still draining around 1000mL of fluid
Repeat CT on 05/07 showed severe postoperative ileus with no tylor obstruction
Abdominal X-Ray 05/08 showed severe air distention of small bowel loops and nasogastric tube in correct position. No radiographic evidence of abnormal gastric or colonic distention
-- Sips of clears for comfort, NPO until Ileus begins to resolve -> Has not had a bowel movement in 24 hours, passing flatus still
-- Counseled importance of ambulation to help in bringing back bowel function -> Patient says that she was able to walk around the floor yesterday with little difficulty -> Patient can have some gum to stimulate bowel as well
-- Analgesics/antiemetics as needed
-- Ordered IV Toradol 15mg Q6PRN
-- IV Protonix 40 mg ordered- gastric reflux
-- RUCHI drain removed yesterday- no drainage noted today
-- Binder as tolerated for the first 2 weeks
-- No heavy lifting or strenuous activities for 4-6 weeks post-op
-- Patient started on IV Levothyroxine yesterday -> continue IV until patient can tolerate PO
-- Repeat Abdominal X-Ray in the AM today
DVT prophylaxis: Lovenox
Subjective Data
-
Date of Service: May 09, 2024
Patient has been feeling well, says that her nausea has been well controlled with the NGT. Says that she is feeling hungry and would like to eat something soon. She has not had a bowel movement in around 24 hours now but has been passing gas
regularly. She was ambulating regularly yesterday and plans on being more active today as well. Patient complains of some heart burn as well.
Objective Data
-
Intake and Output
05/08/24 05/09/24 05/10/24
06:59 06:59 06:59
Intake Total 1070 / 1070 2260 / 2260
Output Total 3413 / 3413 1750 / 1750
Balance -2343 / -2343 510 / 510
Intake:
Oral fluids 150 / 150 240 / 240
IV fluids (Total) 800 / 800 1840 / 1840
Amount instilled into GI Tube ( 120 / 120 180 / 180
Total)
[place] Sump 120 / 120 180 / 180
Output:
Emesis 2300 / 2300
Drain Output (Total) 3 / 3
Right Abdomen Tian-Hoffmann 3 / 3
Gastrointestinal tube output ( 1110 / 1110 1750 / 1750
Total)
[place] Sump 1110 / 1110 1750 / 1750
Other:
Number of approximated MODERATE 3 2
amounts of urine
Number of approximated LARGE 1
amounts of urine
Vital Signs
Temp Pulse Resp BP Pulse Ox
98.8 F 71 20 137/66 98
05/09/24 03:40 05/09/24 05:57 05/09/24 03:40 05/09/24 05:57 05/09/24 03:40
Calcium 8.6 mg/dl (8.4-10.2) 05/08/24 08:43
Magnesium 1.8 mg/dl (1.6-2.3) 05/08/24 08:43
Total Bilirubin 0.6 mg/dl (0.2-1.3) 05/07/24 05:38
AST 38 U/L (14-36) H 05/07/24 05:38
ALT 27 U/L (0-35) 05/07/24 05:38
Alkaline Phosphatase 88 U/L (38-126) 05/07/24 05:38
Total Protein 5.7 g/dl (6.3-8.2) L 05/07/24 05:38
Albumin 3.4 g/dl (3.5-5.0) L 05/07/24 05:38
Physical Exam
-
Gen: NAD
Abd: soft, non-tender, non-distended, incisions non-draining
NGT: draining green bilious fluid
[2024-05-09 07:32] LABS: % Basophils 0.4 % (0-2); % Eosinophils 3.5 % (0-6); % Immature Granulocytes 1.4 % (0-0.5); % Lymphocytes 22.8 % (20.5-51.1); % Monocytes 8.7 % (1.7-9.3); % Neutrophils 63.2 % (42.2-75.2); Absolute Eosinophils 0.3 10^3/uL (0-0.7); Absolute Immature Granulocytes 0.1 10^3/uL (0-0.05); Absolute Lymphocytes 1.8 10^3/uL (1.2-3.4); Absolute Monocytes 0.7 10^3/uL (0.1-0.6); Hematocrit 29.2 % (37.0-47.0); Hemoglobin 9.6 g/dL (12.0-16.0); Mean Corp Hgb Conc. 32.9 g/dL (33.0-37.0); Mean Corpuscular Hgb 29.3 pg (27.0-31.0); Mean Platelet Volume 10.2 fL (7.4-10.4); Nucleated Red Blood Cells % 0 %; Platelet Count 283 10^3/uL (130-400); Red Blood Cell Count 3.28 10^6/uL (4.20-5.40); Red Cell Dist. Width 13.7 % (11.5-14.5); White Blood Cell Count 7.8 10^3/uL (4.8-10.8)
[2024-05-09 08:02] LABS: ALT (SGPT) 33 U/L (0-35); AST (SGOT) 34 U/L (14-36); Albumin 3.4 g/dl (3.5-5.0); Alkaline Phosphatase 87 U/L (38-126); Blood Urea Nitrogen 16 mg/dl (7-17); Calcium 8.9 mg/dl (8.4-10.2); Carbon Dioxide 35 mmol/L (22-30); Chloride 99 mmol/L (98-107); Estimated Creatinine Clearance 88 ml/min; Glucose 99 mg/dl (70-99); Potassium 3.8 mmol/L (3.5-5.1); Sodium 144 mmol/L (135-145); Total Bilirubin 0.6 mg/dl (0.2-1.3); Total Protein 5.6 g/dl (6.3-8.2); eGFR > 60.00
--- NOTE | 2024-05-09 09:26 | W.PN.GYNONC ---
Today's Communication
-
n/a
Impression / Plan
-
POD 7 exp lap complicated by ileus , now with NGT
will continue to follow surgery and hospitalist plan
continue to encourage walking and gum to help with bowel activity.
Subjective / Interval History
-
POD #7- feeling better less bloating no nausea or vomiting for the past 24 hrs but also no BM but is passing gas Since feeling better, she is up and moving more. She is still NPO, but chewing gum. Just back from xray
Objective Data
-
Lab Results:
05/09/24 06:35
05/09/24 06:35
Physical Exam
Vital Signs / I&O
Vitals
Temp Pulse Resp BP Pulse Ox
98.1 F 70 18 143/61 99
05/09/24 07:15 05/09/24 07:15 05/09/24 07:15 05/09/24 07:15 05/09/24 07:15
I&O
05/07/24 05/08/24 05/09/24 05/10/24
06:59 06:59 06:59 06:59
Intake Total 960 / 960 1070 / 1070 2260 / 2260
Output Total 1300 / 1300 3413 / 3413 1750 / 1750
Balance -340 / -340 -2343 / -2343 510 / 510
Physical Exam
VSS
afebrile
incisions healing well Abdomen soft incisional tenderness
extremities no swelling or edema
Data Reviewed
-
Lab Data: Labs Reviewed and Discussed with Physician
[2024-05-09] MEDS: NON-FORMULARY ITEM PO ×2 (09:27→20:22)
[2024-05-09] MEDS: PROTONIX IV 40 MG IV (11:41)
[2024-05-09] MEDS: NSS (PRESERVATIVE FREE) 10 ML IV (11:41)
[2024-05-09 12:00] LABS: Glucose - Point of Care 97 mg/dl (70-99)
--- NOTE | 2024-05-09 12:43 | W.PN.HOSP.TC ---
Today's Communication/Plan
-
serial abd exams, early ambulation, NGT clamping as per surgery
cont Synthroid, iv lopressor
rest of plan per surgery and sternman
Assessment / Plan
Assessment / Plan
Ms. Nery Samuel is a 53 yo woman with hx complex 18 cm cystic and solic mass from left ovary with CA 125 57, hx multiple leiomyoma and prior history endometriosis now s/p surgery morning of 05/02.
05/02/24
Procedure: Failed attempted robotic assisted TLH BSO, exploratory laparotomy, radical tumor debulking including bilateral salpingo-oophorectomy, modified radical hysterectomy, bilateral pelvic and low aortic lymphadenectomy, resection of right and
left paracolic gutter and pelvic peritoneum, infracolic omentectomy, appendectomy, optimal tumor debulking
Anesthesia: General Endotracheal intubation and tap block
Estimated blood loss: 400 cc
IV fluids: 3000 cc crystalloid
Urine output: 300 cc clear
Complications: None
Left Ovarian Mass now s/p ex lap, radical tumor debulking including bilateral salpingo-oophorectomy, modified radical hysterectomy
Post-op Ileus
-management per Resource Conservation Manager Oncology
-improved symptoms along with BMs and Nausea although still with significant green bilious draiange from NGT
-NPO
-Cont NGT to suction
-RUCHI drain removed
-IV Zofran/compazine PRN
-F/u Surg recs
Essential Hypertension
-resume BID dosing Losartan once able to tolerate PO
Hypothyroidism
-APPAREL SALES ASSOCIATE Synthroid - switch to IV at 70%
Non-Insulin Dependent Diabetes
-hold APPAREL SALES ASSOCIATE Metformin for now
-ISS low
#few small areas of soft tissue density within the posterior pelvis bilaterally measuring up to 2.5 cm: not definitely seen previously.
-Findings likely represent postoperative inflammatory change, less likely metastatic or residual soft tissue deposits.
-Recommend continued attention on follow-up exams as per Resource Conservation Manager
-*patient can resume all home meds at [place] without changes to regimen
DVT PPx Lovenox
FULL CODE
Anticipated Discharge: > 48 hours
Subjective/Interval History
-
Date of Service: May 09, 2024
decreased ngt output
Objective Data
-
Labs:
Laboratory Results
05/09/24
06:35
WBC 7.8
Hgb 9.6 L
Hct 29.2 L
Plt Count 283
Sodium 144
Potassium 3.8
Chloride 99
Carbon Dioxide 35 H
BUN 16
Creatinine 0.9
Glucose 99
Calcium 8.9
Total Bilirubin 0.6
AST 34
ALT 33
Alkaline Phosphatase 87
Vital Signs:
Vital Signs
Temp Pulse Resp BP Pulse Ox
98.0 F 66 18 142/61 99
05/09/24 11:05 05/09/24 11:05 05/09/24 11:05 05/09/24 11:05 05/09/24 11:05
I&O
05/08/24 05/09/24 05/10/24
06:59 06:59 06:59
Intake Total 1070 / 1070 2260 / 2260
Output Total 3413 / 3413 1750 / 1750
Balance -2343 / -2343 510 / 510
Review of Systems
-
History Source: Patient
All other systems: Not reviewed unless documented
Physical Exam
-
General: No Apparent Distress
HEENT: PERRLA and Other (ngt)
Respiratory: Clear to Auscultation; Negative Wheezes
Cardiac: Regular Rhythm and S1/S2
GI: Other (binder in place)
Musculoskeletal: No Edema
Skin: Warm and Dry; Negative Rash
Neuro: AO x 3
Psych: Calm
Data Reviewed
-
Diagnostic Radiology: Report Reviewed by me
CT Scan: Image personally visualized and interpreted and Report Reviewed by me
Labs: Labs Reviewed by me
[2024-05-09 17:37] LABS: Glucose - Point of Care 101 mg/dl (70-99)
[2024-05-09] MEDS: LEVOTHROID 70 MCG IV (18:12)
[2024-05-09] MEDS: LOVENOX 40 MG SC (18:12)
[2024-05-09] MEDS: LOPRESSOR IV (20:33)
[2024-05-10 00:16] LABS: Glucose - Point of Care 106 mg/dl (70-99)
[2024-05-10] MEDS: LOPRESSOR 5 MG IV ×4 (00:55→17:30)
[2024-05-10 01:08] LABS: Glucose - Point of Care 97 mg/dl (70-99)
[2024-05-10 03:00] VITALS: BP 123/45
[2024-05-10] MEDS: KCL 1010 MEQ IV ×2 (05:06→17:29)
[2024-05-10 05:20] LABS: Glucose - Point of Care 106 mg/dl (70-99)
[2024-05-10 06:32] LABS: Hematocrit 29.4 % (37.0-47.0); Hemoglobin 9.6 g/dL (12.0-16.0); Mean Corp Hgb Conc. 32.7 g/dL (33.0-37.0); Mean Corpuscular Hgb 29.4 pg (27.0-31.0); Mean Corpuscular Volume 89.9 fL (81.0-99.0); Mean Platelet Volume 10.3 fL (7.4-10.4); Platelet Count 272 10^3/uL (130-400); Red Blood Cell Count 3.27 10^6/uL (4.20-5.40); Red Cell Dist. Width 14.1 % (11.5-14.5); White Blood Cell Count 6.6 10^3/uL (4.8-10.8)
[2024-05-10 07:10] VITALS: BP 168/77
[2024-05-10 07:12] LABS: Blood Urea Nitrogen 14 mg/dl (7-17); Calcium 8.7 mg/dl (8.4-10.2); Carbon Dioxide 34 mmol/L (22-30); Chloride 100 mmol/L (98-107); Estimated Creatinine Clearance 98 ml/min; Glucose 100 mg/dl (70-99); Potassium 3.8 mmol/L (3.5-5.1); Sodium 144 mmol/L (135-145); eGFR > 60.00
--- NOTE | 2024-05-10 07:23 | W.PN.GS2 ---
Addendum entered and electronically signed by Linden Salmon MD 05/10/24 10:34:
X-ray shows stable bowel gas pattern. No symptoms with NGT clamped for 4 hours. Minimal nonbilious outputs upon return to suction. Plan for removal of NGT, would maintain n.p.o. with sips of clears only for comfort for today.
Original Note:
Today's Communication / Plan
-
-- Repeat abdominal X-Ray in the AM today
-- NPO, NGT (plan for clamp trial this AM prior to repeat abdominal X-ray, possible removal this afternoon if X-ray improved and no output after hooking to suction)
Assessment / Plan
-
Assessment:
Patient is a 53 yo F POD#8 with a recent history of open primary repair of ventral/umbilical hernia in the setting of a RAL --> open excision of a LEFT ovarian mass -> now presenting with severe post op ileus.
AFVSS
Labs stable
Post op ileus, NGT placed 05/07 -> continues to pass flatus, decreased outputs over [address] on 05/07 showed severe postoperative ileus with no tylor obstruction
Abdominal X-Ray 05/08 showed severe air distention of small bowel loops and nasogastric tube in correct position. No radiographic evidence of abnormal gastric or colonic distention
Abdominal X-ray 05/09 shows improvement in SB distension, air to rectum
Clinically stable and showing slow signs of improvement
Plan:
-- Repeat abdominal X-Ray in the AM today
-- NPO, NGT (plan for clamp trial this AM prior to repeat abdominal X-ray, possible removal this afternoon if X-ray improved and no output after hooking to suction)
-- OOB/ambulate, eat gum
-- Pain control: IV Toradol and Dilaudid PRN
-- Patient started on IV Levothyroxine, continue IV until patient can tolerate PO
-- GI: PPT while NGT in place
-- DVT: Lovenox
-- RUCHI drain removed yesterday - no drainage noted today
-- Binder as tolerated for the first 2 weeks
-- No heavy lifting or strenuous activities for 4-6 weeks post-op
Subjective Data
-
Date of Service: May 10, 2024
No complaints. Pain well-controlled and improving. No nausea or vomiting. Continues to pass flatus, no BM. Afebrile.
Objective Data
-
Intake and Output
05/09/24 05/10/24 05/11/24
06:59 06:59 06:59
Intake Total 2260 / 2260 1260 / 1260
Output Total 1750 / 1750 700 / 700
Balance 510 / 510 560 / 560
Intake:
Oral fluids 240 / 240 120 / 120
IV fluids (Total) 1840 / 1840 960 / 960
Amount instilled into GI Tube ( 180 / 180 180 / 180
Total)
[place] Sump 180 / 180 180 / 180
Output:
Gastrointestinal tube output ( 1750 / 1750 700 / 700
Total)
[place] Sump 1750 / 1750 700 / 700
Other:
Number of approximated MODERATE 2 4
amounts of urine
Vital Signs
Temp Pulse Resp BP Pulse Ox
98.1 F 64 20 157/64 97
05/10/24 03:00 05/10/24 05:12 05/10/24 03:00 05/10/24 05:12 05/10/24 03:00
Lab Results
05/10/24 05:15
05/10/24 05:15
Calcium 8.7 mg/dl (8.4-10.2) 05/10/24 05:15
Magnesium 1.8 mg/dl (1.6-2.3) 05/08/24 08:43
Total Bilirubin 0.6 mg/dl (0.2-1.3) 05/09/24 06:35
AST 34 U/L (14-36) 05/09/24 06:35
ALT 33 U/L (0-35) 05/09/24 06:35
Alkaline Phosphatase 87 U/L (38-126) 05/09/24 06:35
Total Protein 5.6 g/dl (6.3-8.2) L 05/09/24 06:35
Albumin 3.4 g/dl (3.5-5.0) L 05/09/24 06:35
Physical Exam
-
Gen: NAD
HEENT: bilious fluid in canister, none in tubing
Abd: binder in place, NT/ND (exam limited by obesity), non-peritoneal, incisions c/d/i - no erythema, ecchymosis or drainage
[2024-05-10] MEDS: PROTONIX IV 40 MG IV (09:38)
[2024-05-10] MEDS: NON-FORMULARY ITEM PO ×2 (09:38→20:45)
[2024-05-10] MEDS: NSS (PRESERVATIVE FREE) 10 ML IV (09:38)
--- NOTE | 2024-05-10 10:28 | W.PN.GYNONC ---
Today's Communication
-
..
Impression / Plan
-
POD 8 exp lap complicated by ileus , now with NGT
will continue to follow surgery and hospitalist plan
continue to encourage walking and gum to help with bowel activity.
patient and labs reviewed with Dr Fenton
Subjective / Interval History
-
pod 8- post op Ileus - feeling better feels hungry very little incisional pain is moving better no drainage from incision since drain removed. waiting to go for today's X Ray yesterday's did show slight improvement
Objective Data
-
Lab Results:
05/10/24 05:15
05/10/24 05:15
Physical Exam
Vital Signs / I&O
Vitals
Temp Pulse Resp BP Pulse Ox
97.7 F 64 18 168/77 96
05/10/24 07:10 05/10/24 07:10 05/10/24 07:10 05/10/24 07:10 05/10/24 07:10
I&O
05/08/24 05/09/24 05/10/24 05/11/24
06:59 06:59 06:59 06:59
Intake Total 1070 / 1070 2260 / 2260 1260 / 1260
Output Total 3413 / 3413 1750 / 1750 700 / 700
Balance -2343 / -2343 510 / 510 560 / 560
Physical Exam
vss
afebrile
slight bile colored fluid in NGT
Data Reviewed
-
Lab Data: Labs Reviewed
[2024-05-10 11:00] VITALS: BP 140/70
[2024-05-10 11:02] LABS: Glucose - Point of Care 103 mg/dl (70-99)
[2024-05-10] MEDS: DESENEX/MITRAZOL/ZEASORB 1 APPLIC TOPICAL ×2 (11:07→20:51)
--- NOTE | 2024-05-10 11:30 | PTCARENOTE ---
NGT tube removed without difficulty. Patient tolerating sips of clear liquids. Patient verbalized understanding of just sips of clears today. Patient ambulating in halls, no c/o pain, tender with palpations.
--- NOTE | 2024-05-10 11:35 | CM ---
Case management following for discharge planning
Chart reviewed
Post op ileus
X-ray today - stable gas pattern - NGT to be d/c'ed
Remains NPO
CM will cont to follow for d/c needs
Plan - anticipate home no needs when medically stable
--- NOTE | 2024-05-10 14:09 | W.PN.HOSP.TC ---
Today's Communication/Plan
-
NG tube removed, monitor with sips of clears
Potassium level >3.5 will suffice
Assessment / Plan
Assessment / Plan
Ms. Nery Samuel is a 53 yo woman with hx complex 18 cm cystic and solic mass from left ovary with CA 125 57, hx multiple leiomyoma and prior history endometriosis now s/p surgery morning of 05/02.
05/02/24
Procedure: Failed attempted robotic assisted TLH BSO, exploratory laparotomy, radical tumor debulking including bilateral salpingo-oophorectomy, modified radical hysterectomy, bilateral pelvic and low aortic lymphadenectomy, resection of right and
left paracolic gutter and pelvic peritoneum, infracolic omentectomy, appendectomy, optimal tumor debulking
Anesthesia: General Endotracheal intubation and tap block
Estimated blood loss: 400 cc
IV fluids: 3000 cc crystalloid
Urine output: 300 cc clear
Complications: None
Left Ovarian Mass now s/p ex lap, radical tumor debulking including bilateral salpingo-oophorectomy, modified radical hysterectomy
Post-op Ileus
-management per Schedule Planning Manager Oncology
-improved symptoms along with BMs and Nausea although st passed Lamictal ill with significant green bilious draiange from NGT
-NPO
�Past clamp trial, remove NG tube and monitor
-RUCHI drain removed
-IV Zofran/compazine PRN
-F/u Surg recs
Essential Hypertension
-resume BID dosing Losartan once able to tolerate PO
Hypothyroidism
-ENTRY LEVEL JAVA DEVELOPER Synthroid - switch to IV at 70%
Non-Insulin Dependent Diabetes
-hold ENTRY LEVEL JAVA DEVELOPER Metformin for now
-ISS low
#few small areas of soft tissue density within the posterior pelvis bilaterally measuring up to 2.5 cm: not definitely seen previously.
-Findings likely represent postoperative inflammatory change, less likely metastatic or residual soft tissue deposits.
-Recommend continued attention on follow-up exams as per Schedule Planning Manager
-*patient can resume all home meds at [place] without changes to regimen
DVT PPx Lovenox
FULL CODE
Anticipated Discharge: 24 - 48 hours
Subjective/Interval History
-
Date of Service: May 10, 2024
Acute events, removed NG tube this morning
Objective Data
-
Labs:
Laboratory Results
05/10/24
05:15
WBC 6.6
Hgb 9.6 L
Hct 29.4 L
Plt Count 272
Sodium 144
Potassium 3.8
Chloride 100
Carbon Dioxide 34 H
BUN 14
Creatinine 0.8
Glucose 100 H
Calcium 8.7
Vital Signs:
Vital Signs
Temp Pulse Resp BP Pulse Ox
97.8 F 74 18 140/70 98
05/10/24 11:00 05/10/24 11:00 05/10/24 11:00 05/10/24 11:00 05/10/24 11:00
I&O
05/09/24 05/10/24 05/11/24
06:59 06:59 06:59
Intake Total 2260 / 2260 1260 / 1260
Output Total 1750 / 1750 700 / 700
Balance 510 / 510 560 / 560
Review of Systems
-
History Source: Patient
All other systems: Not reviewed unless documented
Physical Exam
-
General: No Apparent Distress
HEENT: PERRLA and Other
Respiratory: Clear to Auscultation; Negative Wheezes
Cardiac: Regular Rhythm and S1/S2
GI: Other (binder in place)
Musculoskeletal: No Edema
Skin: Warm and Dry; Negative Rash
Neuro: AO x 3
Psych: Calm
Data Reviewed
-
Diagnostic Radiology: Report Reviewed by me
CT Scan: Image personally visualized and interpreted and Report Reviewed by me
Labs: Labs Reviewed by me
[2024-05-10 15:05] VITALS: BP 156/76
[2024-05-10 17:00] LABS: Glucose - Point of Care 116 mg/dl (70-99)
[2024-05-10] MEDS: LEVOTHROID 70 MCG IV (17:30)
[2024-05-10] MEDS: LOVENOX 40 MG SC (17:30)
--- NOTE | 2024-05-10 17:39 | PTCARENOTE ---
Patient c/o right calf apin, worse with dorsal flexion. Physician made aware.
[2024-05-10 19:45] VITALS: BP 149/61
[2024-05-10 23:01] VITALS: BP 154/73
[2024-05-10 23:59] LABS: Glucose - Point of Care 94 mg/dl (70-99)
[2024-05-11] MEDS: LOPRESSOR 5 MG IV (00:21)
[2024-05-11 03:06] VITALS: BP 138/75
[2024-05-11 05:58] LABS: Glucose - Point of Care 103 mg/dl (70-99)
[2024-05-11] MEDS: LOPRESSOR IV ×3 (06:04→17:18)
[2024-05-11 06:25] LABS: Hematocrit 30.4 % (37.0-47.0); Mean Corp Hgb Conc. 32.9 g/dL (33.0-37.0); Mean Corpuscular Hgb 29.5 pg (27.0-31.0); Mean Corpuscular Volume 89.7 fL (81.0-99.0); Mean Platelet Volume 10.1 fL (7.4-10.4); Platelet Count 278 10^3/uL (130-400); Red Blood Cell Count 3.39 10^6/uL (4.20-5.40); Red Cell Dist. Width 14.6 % (11.5-14.5)
[2024-05-11 06:53] LABS: Blood Urea Nitrogen 11 mg/dl (7-17); Calcium 8.6 mg/dl (8.4-10.2); Carbon Dioxide 28 mmol/L (22-30); Chloride 102 mmol/L (98-107); Estimated Creatinine Clearance 98 ml/min; Glucose 99 mg/dl (70-99); Potassium 3.9 mmol/L (3.5-5.1); Sodium 143 mmol/L (135-145); eGFR > 60.00
[2024-05-11 07:23] VITALS: BP 142/60
--- NOTE | 2024-05-11 07:23 | W.PN.GS2 ---
Addendum entered and electronically signed by Linden Salmon MD 05/11/24 08:58:
Patient seen and examined.
No complaints. Denies nausea or vomiting. Continues to pass flatus and had a BM yesterday. No fevers. Ambulating. Voiding.
Gen: NAD
Abd: soft, NT/ND, non-peritoneal, incisions c/d/i - no erythema, ecchymosis or drainage
Patient is a 53 yo F POD#9 with a recent history of open primary repair of ventral/umbilical hernia in the setting of a RAL --> open excision of a LEFT ovarian mass -> now presenting with severe post op ileus.
AFVSS
Labs stable
Post op ileus, NGT placed 05/07 -> continues to pass flatus, decreased outputs over [address] on 05/07 showed severe postoperative ileus with no tylor obstruction
Abdominal X-Ray 05/08 showed severe air distention of small bowel loops and nasogastric tube in correct position. No radiographic evidence of abnormal gastric or colonic distention
Abdominal X-ray 05/09 shows improvement in SB distension, air to rectum
Clinically stable and showing slow signs of improvement. Slow dietary advancement.
Plan:
-- Clears
-- OOB/ambulate, eat gum
-- Pain control: Tylenol, IV Toradol and Dilaudid PRN
-- Patient started on IV Levothyroxine, continue IV until patient can tolerate PO
-- GI: PPT while NGT in place
-- DVT: Lovenox
-- Binder as tolerated for the first 2 weeks
-- No heavy lifting or strenuous activities for 4-6 weeks post-op
Original Note:
Today's Communication / Plan
-
Patient advanced to clear liquid diet. Can switch her IV meds to PO once she shows tolerance of advanced diet.
Assessment / Plan
-
Assessment:
Patient is a 53 yo F POD#9 with a recent history of open primary repair of ventral/umbilical hernia in the setting of a RAL --> open excision of a LEFT ovarian mass -> presented with severe post op ileus which seems to now be resolving
AFVSS
Labs stable
Post op ileus, NGT placed 05/07 ->Removed yesterday (05/10) -> Bowel movement yesterday -> No nausea or vomiting since
Repeat CT on 05/07 showed severe postoperative ileus with no tylro obstruction
Abdominal X-Ray 05/08 showed severe air distention of small bowel loops and nasogastric tube in correct position. No radiographic evidence of abnormal gastric or colonic distention
Abdominal X-ray 05/09 shows improvement in SB distension, air to rectum
US RLE 05/10- no evidence of DVT
Clinically stable and showing slow signs of improvement with return of bowel function
Plan:
-- Patient advanced to clear liquid diet, counseled to take it easy and only eat as much as she can tolerate
-- Pain control: IV Toradol and Dilaudid PRN
-- Continue OOB/ambulation to help in return of bowel function
-- Patient started on IV Levothyroxine, continue IV until patient can tolerate PO -> Patient okay to start PO medication
-- Switch to oral Protonix and stop IV fluids once patient shows tolerance of advanced diet
-- Binder as tolerated for the first 2 weeks
-- No heavy lifting or strenuous activities for 4-6 weeks post-op
-- DVT: Lovenox
Subjective Data
-
Date of Service: May 11, 2024
Patient says that she has been feeling well. She states that she had a bowel movement last night and that she has had no nausea or vomiting since the NGT was removed. She has been feeling well and wants to move on to having some food.
Objective Data
-
Intake and Output
05/10/24 05/11/24 05/12/24
06:59 06:59 06:59
Intake Total 1260 / 1260 1070 / 1070
Output Total 700 / 700 850 / 850
Balance 560 / 560 220 / 220
Intake:
Oral fluids 120 / 120 460 / 460
IV fluids (Total) 960 / 960 600 / 600
IV piggybacks
Amount instilled into GI Tube ( 180 / 180
Total)
[place] Sump 180 / 180
Output:
Gastrointestinal tube output ( 700 / 700 850 / 850
Total)
[place] Sump 700 / 700 850 / 850
Other:
Number of approximated SMALL 1
amounts of urine
Number of approximated MODERATE 4 4
amounts of urine
Vital Signs
Temp Pulse Resp BP Pulse Ox
98.9 F 66 18 126/46 96
05/11/24 03:06 05/11/24 06:04 05/11/24 03:06 05/11/24 06:04 05/11/24 03:06
Lab Results
05/11/24 05:49
05/11/24 05:49
Calcium 8.6 mg/dl (8.4-10.2) 05/11/24 05:49
Magnesium 1.8 mg/dl (1.6-2.3) 05/08/24 08:43
Total Bilirubin 0.6 mg/dl (0.2-1.3) 05/09/24 06:35
AST 34 U/L (14-36) 05/09/24 06:35
ALT 33 U/L (0-35) 05/09/24 06:35
Alkaline Phosphatase 87 U/L (38-126) 05/09/24 06:35
Total Protein 5.6 g/dl (6.3-8.2) L 05/09/24 06:35
Albumin 3.4 g/dl (3.5-5.0) L 05/09/24 06:35
Physical Exam
-
Gen: NAD
Abd: soft, non-tender, non-distended, incisions non-draining/non-erythematous
[2024-05-11] MEDS: PROTONIX IV 40 MG IV (08:08)
[2024-05-11] MEDS: KCL 1010 MEQ IV (08:09)
[2024-05-11] MEDS: NSS (PRESERVATIVE FREE) 10 ML IV (08:09)
[2024-05-11] MEDS: DESENEX/MITRAZOL/ZEASORB 1 APPLIC TOPICAL ×2 (08:10→20:10)
[2024-05-11] MEDS: NON-FORMULARY ITEM 50 UNIT PO (08:13)
--- NOTE | 2024-05-11 08:15 | W.PN.GYNONC ---
Today's Communication
-
..
Impression / Plan
-
POD 9 exp lap complicated by ileus
Ileus improving NG tube removed and tolerating small amounts of fluid
will continue to follow surgery and hospitalist plan for diet and starting po meds
continue to encourage walking
patient and labs reviewed with Dr Fenton
Subjective / Interval History
-
POD 9- feeling good NGT removed yesterday denies nausea or vomiting with sips of water and apple juice and did have a BM yesterday. Right calf pain is better this morning, just feels tight .
Objective Data
-
Lab Results:
05/11/24 05:49
05/11/24 05:49
Physical Exam
Vital Signs / I&O
Vitals
Temp Pulse Resp BP Pulse Ox
98.2 F 63 15 142/60 97
05/11/24 07:23 05/11/24 07:23 05/11/24 07:23 05/11/24 07:23 05/11/24 07:23
I&O
05/09/24 05/10/24 05/11/24 05/12/24
06:59 06:59 06:59 06:59
Intake Total 2260 / 2260 1260 / 1260 1070 / 1070
Output Total 1750 / 1750 700 / 700 850 / 850
Balance 510 / 510 560 / 560 220 / 220
Physical Exam
VSS
afebrile
right calf soft,no redness or swelling tenderness to palpation
incisions well healed
Data Reviewed
-
Ultrasound: Report Reviewed by Me, Discussed with Physician and Discussed with Patient
Lab Data: Labs Reviewed and Discussed with Physician
[2024-05-11 10:52] VITALS: BP 134/64
--- NOTE | 2024-05-11 12:45 | W.PN.HOSP.TC ---
Today's Communication/Plan
-
resume back home meds once able to tolerate PO and discharged
Assessment / Plan
Assessment / Plan
Ms. Nery Samuel is a 53 yo woman with hx complex 18 cm cystic and solic mass from left ovary with CA 125 57, hx multiple leiomyoma and prior history endometriosis now s/p surgery morning of 05/02.
05/02/24
Procedure: Failed attempted robotic assisted TLH BSO, exploratory laparotomy, radical tumor debulking including bilateral salpingo-oophorectomy, modified radical hysterectomy, bilateral pelvic and low aortic lymphadenectomy, resection of right and
left paracolic gutter and pelvic peritoneum, infracolic omentectomy, appendectomy, optimal tumor debulking
Anesthesia: General Endotracheal intubation and tap block
Estimated blood loss: 400 cc
IV fluids: 3000 cc crystalloid
Urine output: 300 cc clear
Complications: None
Left Ovarian Mass now s/p ex lap, radical tumor debulking including bilateral salpingo-oophorectomy, modified radical hysterectomy
Post-op Ileus
-management per Paratransit Operator Oncology
-improved symptoms along with BMs and Nausea although st passed Lamictal ill with significant green bilious draiange from NGT
� NG tube removed, tolerating clear liquid diet. Advance diet as per surgery
-RUCHI drain removed
-IV Zofran/compazine PRN
-F/u Surg recs
�Binder as tolerated for first 2 weeks
� No heavy lifting or strenuous activity for 4 to 6 weeks postop
Essential Hypertension
-resume BID dosing Losartan once able to tolerate PO
Hypothyroidism
-PLUGGER WORKER Synthroid - switch to IV at 70%
-switch back to home dose upon dc
Non-Insulin Dependent Diabetes
-hold PLUGGER WORKER Metformin for now
-ISS low
-resume back home dose once tolerating po
#few small areas of soft tissue density within the posterior pelvis bilaterally measuring up to 2.5 cm: not definitely seen previously.
-Findings likely represent postoperative inflammatory change, less likely metastatic or residual soft tissue deposits.
-Recommend continued attention on follow-up exams as per Paratransit Operator
-*patient can resume all home meds at [place] without changes to regimen
DVT PPx Lovenox
FULL CODE
Anticipated Discharge: Within 24 hours
Subjective/Interval History
-
Date of Service: May 11, 2024
Tolerating clear liquid this morning
Objective Data
-
Labs:
Laboratory Results
05/11/24
05:49
WBC 7.0
Hgb 10.0 L
Hct 30.4 L
Plt Count 278
Sodium 143
Potassium 3.9
Chloride 102
Carbon Dioxide 28
BUN 11
Creatinine 0.8
Glucose 99
Calcium 8.6
Vital Signs:
Vital Signs
Temp Pulse Resp BP Pulse Ox
98.3 F 86 15 134/64 99
05/11/24 10:52 05/11/24 10:52 05/11/24 10:52 05/11/24 10:52 05/11/24 10:52
I&O
05/10/24 05/11/24 05/12/24
06:59 06:59 06:59
Intake Total 1260 / 1260 1070 / 1070
Output Total 700 / 700 850 / 850
Balance 560 / 560 220 / 220
Review of Systems
-
History Source: Patient
All other systems: Not reviewed unless documented
Data Reviewed
-
Diagnostic Radiology: Report Reviewed by me
CT Scan: Image personally visualized and interpreted and Report Reviewed by me
Labs: Labs Reviewed by me
[2024-05-11 13:55] LABS: Glucose - Point of Care 145 mg/dl (70-99)
[2024-05-11 15:11] VITALS: BP 140/65
[2024-05-11 16:38] VITALS: BMI 41.5
[2024-05-11 18:06] LABS: Glucose - Point of Care 90 mg/dl (70-99)
[2024-05-11] MEDS: LEVOTHROID 70 MCG IV (18:09)
[2024-05-11] MEDS: LOVENOX 40 MG SC (18:10)
[2024-05-11] MEDS: NON-FORMULARY ITEM 1 UNIT PO (20:10)
--- NOTE | 2024-05-11 21:13 | CM ---
pod#9 left ovarian mass sp exp lap/tumor debulking/hysterectomy.tolerating clear liquids,herbert drain removed,can resume po meds when dc.Plan home with no home care needs.please have doctor write script for a wheelless walker.
received a call from otilia at [facility].i gave her a clinical update.she would like us to give patient a script for a wheelless walker(pt wants to use for support in bathroom).she is also requesting a call when patient is dc.
--- NOTE | 2024-05-11 21:56 | W.PN.UPDATE ---
Update Note
Progress Note Update
pt requesting iv synthroid and protonix changed to po as she is tolerating po clears now. Will change per pt wishes
[2024-05-11 23:30] VITALS: BP 112/57
[2024-05-11 23:37] VITALS: BP 112/57
[2024-05-11 23:50] LABS: Glucose - Point of Care 102 mg/dl (70-99)
[2024-05-12] MEDS: LOPRESSOR IV ×3 (00:46→16:37)
[2024-05-12] MEDS: NON-FORMULARY ITEM 1 UNIT PO ×3 (06:02→20:47)
[2024-05-12 06:36] LABS: Glucose - Point of Care 121 mg/dl (70-99)
--- NOTE | 2024-05-12 07:02 | W.PN.GS2 ---
Addendum entered and electronically signed by Linden Salmon MD 05/12/24 10:43:
Patient seen and examined.
No complaints. Reports passing flatus and stool. No nausea, vomiting, increased bloating, reflux. Ambulating. Voiding. Afebrile.
Gen: NAD
Abd: soft, NT/ND (obese), non-peritoneal, incisions c/d/i - no erythema, ecchymosis or drainage
Patient is a 53 yo F POD#10 with a recent history of open primary repair of ventral/umbilical hernia in the setting of a RAL --> open excision of a LEFT ovarian mass
AFVSS
Labs stable
Post op ileus, NGT placed 05/07 ->Removed 05/10 -> Continuing to have normal bowel movements -> No nausea or vomiting
Repeat CT on 05/07 showed severe postoperative ileus with no tylor obstruction
Abdominal X-Ray 05/08 showed severe air distention of small bowel loops and nasogastric tube in correct position. No radiographic evidence of abnormal gastric or colonic distention
Abdominal X-ray 05/09 shows improvement in SB distension, air to rectum
US RLE 05/10- no evidence of DVT
Clinically stable and showing slow signs of improvement with return of bowel function
-- LRD
-- Pain control: Tylenol and Toradol
-- OOB/ambulation
-- Home medications
-- Binder for the first 2 weeks
-- No heavy lifting or strenuous activities for 4-6 weeks post-op
-- DVT: Lovenox
Original Note:
Today's Communication / Plan
-
Patient's diet to be advanced today to low residue diabetic diet.
Assessment / Plan
-
Assessment:
Patient is a 53 yo F POD#10 with a recent history of open primary repair of ventral/umbilical hernia in the setting of a RAL --> open excision of a LEFT ovarian mass -> presented with severe post op ileus which seems to now have resolved
AFVSS
Labs stable
Post op ileus, NGT placed 05/07 ->Removed 05/10 -> Continuing to have normal bowel movements -> No nausea or vomiting
Repeat CT on 05/07 showed severe postoperative ileus with no tylor obstruction
Abdominal X-Ray 05/08 showed severe air distention of small bowel loops and nasogastric tube in correct position. No radiographic evidence of abnormal gastric or colonic distention
Abdominal X-ray 05/09 shows improvement in SB distension, air to rectum
US RLE 05/10- no evidence of DVT
Clinically stable and showing slow signs of improvement with return of bowel function
Plan:
-- Patient advanced to low residue diabetic diet today
-- Pain control and anti-emetic medication as needed
-- Continue OOB/ambulation to help in return of bowel function
-- Patient to continue home PO medications
-- Binder as tolerated for the first 2 weeks
-- No heavy lifting or strenuous activities for 4-6 weeks post-op
-- DVT: Lovenox
Subjective Data
-
Date of Service: May 12, 2024
Patient has been feeling well. She tolerated the clear liquid diet well yesterday and was switched to PO medication for several of her medications which she tolerated with no issue. She was able to shower yesterday as well and had a more solid
looking bowel movement last night. She says she has had no abdominal pain, nausea or vomiting.
Objective Data
-
Intake and Output
05/11/24 05/12/24 05/13/24
06:59 06:59 06:59
Intake Total 1070 / 1070 2640 / 2640
Output Total 850 / 850
Balance 220 / 220 2640 / 2640
Intake:
Oral fluids 460 / 460 2640 / 2640
IV fluids (Total) 600 / 600
IV piggybacks
Output:
Gastrointestinal tube output ( 850 / 850
Total)
[place] Sump 850 / 850
Other:
Number of approximated SMALL 1
amounts of urine
Number of approximated MODERATE 4 2
amounts of urine
Vital Signs
Temp Pulse Resp BP Pulse Ox
99.2 F 65 15 111/66 98
05/11/24 23:37 05/12/24 06:04 05/11/24 23:37 05/12/24 06:04 05/11/24 23:37
Lab Results
05/11/24 05:49
05/11/24 05:49
Calcium 8.6 mg/dl (8.4-10.2) 05/11/24 05:49
Magnesium 1.8 mg/dl (1.6-2.3) 05/08/24 08:43
Total Bilirubin 0.6 mg/dl (0.2-1.3) 05/09/24 06:35
AST 34 U/L (14-36) 05/09/24 06:35
ALT 33 U/L (0-35) 05/09/24 06:35
Alkaline Phosphatase 87 U/L (38-126) 05/09/24 06:35
Total Protein 5.6 g/dl (6.3-8.2) L 05/09/24 06:35
Albumin 3.4 g/dl (3.5-5.0) L 05/09/24 06:35
Physical Exam
-
Gen: NAD
Abd: Soft, mildly distended, non tender, incision sites non-erythematous and non-draining
[2024-05-12 07:10] VITALS: BP 127/49
[2024-05-12] MEDS: PROTONIX 40 MG PO (08:28)
--- NOTE | 2024-05-12 09:04 | W.PN.GYNONC ---
Today's Communication
-
''
Impression / Plan
-
POD 10 exp lap complicated by ileus
Ileus resolving and diet advancing and PO medications resumed
will continue to follow surgery and hospitalist plan for diet
continue to encourage walking
looking for discharge to home in 24 to 48 hrs if diet tolerated
patient and plan Dr Fenton
Subjective / Interval History
-
pod 10- doing good tolerated clear fluids yesterday and changed back to PO medications will start diabetic diet today. No nausea or indigestion BM more solid Continues to ambulate and was able to shower yesterday leg pain improved
Objective Data
-
Lab Results:
05/11/24 05:49
05/11/24 05:49
Physical Exam
Vital Signs / I&O
Vitals
Temp Pulse Resp BP Pulse Ox
98.0 F 77 18 127/49 99
05/12/24 07:10 05/12/24 07:10 05/12/24 07:10 05/12/24 07:10 05/12/24 07:10
I&O
05/10/24 05/11/24 05/12/24 05/13/24
06:59 06:59 06:59 06:59
Intake Total 1260 / 1260 1070 / 1070 2640 / 2640
Output Total 700 / 700 850 / 850
Balance 560 / 560 220 / 220 2640 / 2640
Physical Exam
VSS
afebrile
abdomen soft nontender incision well heal no drainage
--- NOTE | 2024-05-12 10:16 | PTCARENOTE ---
pt insisting she can not eat the 2200/CHo Low residue diet. that she is eating more carbs and sugar free items and not protein. pt stated she can control her own diet. informed COMPOSITE LAMINATOR. diet changed to low residue per pt request
--- NOTE | 2024-05-12 10:24 | W.PN.UPDATE ---
Update Note
Progress Note Update
Diet:
Patient placed on LRD/ADA diet this am. Notified by nursing that patient would like to manage own dietary carb intake and declining carb controlled diabetic diet. Will change to Low residue and follow blood sugars closely. Sliding scale orders
changed to AC/HS now that patient tolerating solid food again.
[2024-05-12 11:33] LABS: Glucose - Point of Care 186 mg/dl (70-99)
[2024-05-12] MEDS: NOVOLOG FLEXPEN-LOW RESISTANCE 1 UNITS SC (12:02)
[2024-05-12] MEDS: DESENEX/MITRAZOL/ZEASORB 1 APPLIC TOPICAL ×2 (12:05→20:44)
--- NOTE | 2024-05-12 13:11 | W.PN.HOSP.TC ---
Today's Communication/Plan
-
assess on LRD
can switch back to home meds
Assessment / Plan
Assessment / Plan
Ms. Nery Samuel is a 53 yo woman with hx complex 18 cm cystic and solic mass from left ovary with CA 125 57, hx multiple leiomyoma and prior history endometriosis now s/p surgery morning of 05/02.
05/02/24
Procedure: Failed attempted robotic assisted TLH BSO, exploratory laparotomy, radical tumor debulking including bilateral salpingo-oophorectomy, modified radical hysterectomy, bilateral pelvic and low aortic lymphadenectomy, resection of right and
left paracolic gutter and pelvic peritoneum, infracolic omentectomy, appendectomy, optimal tumor debulking
Anesthesia: General Endotracheal intubation and tap block
Estimated blood loss: 400 cc
IV fluids: 3000 cc crystalloid
Urine output: 300 cc clear
Complications: None
Left Ovarian Mass now s/p ex lap, radical tumor debulking including bilateral salpingo-oophorectomy, modified radical hysterectomy
Post-op Ileus
-management per Policy Change Clerk Oncology
-improved symptoms along with BMs and Nausea although st passed Lamictal ill with significant green bilious draiange from NGT
� NG tube removed, adv to LRD - tolerating well
-RUCHI drain removed
-IV Zofran/compazine PRN
-F/u Surg recs
�Binder as tolerated for first 2 weeks
� No heavy lifting or strenuous activity for 4 to 6 weeks postop
Essential Hypertension
-resume BID dosing Losartan once able to tolerate PO
Hypothyroidism
-MAILING MACHINE HELPER Synthroid - switch to IV at 70%
-switch back to home dose upon dc
Non-Insulin Dependent Diabetes
-hold MAILING MACHINE HELPER Metformin for now
-ISS low
-resume back home dose once tolerating po
#few small areas of soft tissue density within the posterior pelvis bilaterally measuring up to 2.5 cm: not definitely seen previously.
-Findings likely represent postoperative inflammatory change, less likely metastatic or residual soft tissue deposits.
-Recommend continued attention on follow-up exams as per Policy Change Clerk
-*patient can resume all home meds at OR without changes to regimen
DVT PPx Lovenox
FULL CODE
Anticipated Discharge: Within 24 hours
Subjective/Interval History
-
Date of Service: May 12, 2024
No acute events overnight, tolerating clear diet, advance to low residue and tolerating this morning
Objective Data
-
Vital Signs:
Vital Signs
Temp Pulse Resp BP Pulse Ox
98.0 F 77 18 127/49 99
05/12/24 07:10 05/12/24 07:10 05/12/24 07:10 05/12/24 07:10 05/12/24 07:10
I&O
05/11/24 05/12/24 05/13/24
06:59 06:59 06:59
Intake Total 1070 / 1070 2640 / 2640
Output Total 850 / 850
Balance 220 / 220 2640 / 2640
Review of Systems
-
History Source: Patient
All other systems: Not reviewed unless documented
Data Reviewed
-
Diagnostic Radiology: Report Reviewed by me
CT Scan: Image personally visualized and interpreted and Report Reviewed by me
Labs: Labs Reviewed by me
[2024-05-12 15:15] VITALS: BP 129/44
--- NOTE | 2024-05-12 15:21 | CM ---
Case management following for discharge planning
Tolerating low residue diet
Ambulating in hallway
Poss d/c in AM
Plan - anticipate home no needs when medically ready
[2024-05-12 17:10] LABS: Glucose - Point of Care 132 mg/dl (70-99)
[2024-05-12] MEDS: NOVOLOG FLEXPEN-LOW RESISTANCE SC ×2 (17:17→22:15)
[2024-05-12] MEDS: LOVENOX 40 MG SC (17:18)
--- NOTE | 2024-05-12 18:46 | PTCARENOTE ---
pt is having bring in more meds from home, nurse suggested bringing in more than her stay. she does not want generic meds. will pass to night nurse
[2024-05-12 22:21] LABS: Glucose - Point of Care 135 mg/dl (70-99)
[2024-05-12 23:22] VITALS: BP 129/54
[2024-05-13] MEDS: NON-FORMULARY ITEM 1 UNIT PO (06:22)
[2024-05-13 07:00] VITALS: BP 147/56
[2024-05-13 08:05] LABS: Glucose - Point of Care 133 mg/dl (70-99)
[2024-05-13] MEDS: NOVOLOG FLEXPEN-LOW RESISTANCE SC ×2 (08:26→13:04)
[2024-05-13] MEDS: PROTONIX 40 MG PO (08:27)
[2024-05-13] MEDS: NON-FORMULARY ITEM 50 UNIT PO (08:28)
[2024-05-13] MEDS: DESENEX/MITRAZOL/ZEASORB 1 APPLIC TOPICAL (08:29)
[2024-05-13] MEDS: SENOKOT-S 1 TABLET PO (09:27)
--- NOTE | 2024-05-13 09:47 | W.PN.GYNONC ---
Today's Communication
-
..
Impression / Plan
-
POD 11 exp lap complicated by ileus
Ileus resolving and diet advancing and PO medications resumed
will continue to follow surgery and hospitalist plan for diet
continue to encourage walking
looking for discharge to home today, surgeon wants to make sure she tolerates breakfast and lunch before discharge
patient and plan Dr Fenton
Subjective / Interval History
-
POd 11 - recovery well from post ileus- Just ate breakfest and feeling good, tolerated diet yesterday. no incision complaints no vaginal bleeding or discharge
Objective Data
-
Lab Results:
05/11/24 05:49
05/11/24 05:49
Physical Exam
Vital Signs / I&O
Vitals
Temp Pulse Resp BP Pulse Ox
99.4 F 75 18 147/56 97
05/13/24 07:00 05/13/24 07:00 05/13/24 07:00 05/13/24 07:00 05/13/24 07:00
I&O
05/11/24 05/12/24 05/13/24 05/14/24
06:59 06:59 06:59 06:59
Intake Total 1070 / 1070 2640 / 2640 1540 / 1540
Output Total 850 / 850
Balance 220 / 220 2640 / 2640 1540 / 1540
--- NOTE | 2024-05-13 10:27 | W.PN.GS2 ---
Addendum entered and electronically signed by Linden Salmon MD 05/13/24 12:01:
Patient seen and examined. Agree with assessment plan as documented below.
Feels well. No complaints. Denies nausea or vomiting. Denies worsening abdominal pain. Passing flatus and nonbloody BMs.
Gen: NAD
Abd: soft, NT/ND, non-peritoneal, incisions c/d/i - no erythema, ecchymosis or drainage
Patient is a 53 yo F POD#11 s/p Robotic converted to open total hysterectomy and bilateral oophorectomy with tumor debulking and lymph node resection by HARDWOOD FLOORING SPECIALIST with open primary ventral hernia repair by General Surgery
AFVSS
Labs stable
Developed ileus requiring NGT decompression
Continues to pass flatus, tolerating diet advancements
Clinically stable and showing slow signs of improvement with return of bowel function
-- Continue LRD
-- Bowel regimen
-- Pain control and anti-emetic medication as needed
-- OOB/Ambulate
-- Patient continued on home PO medications
-- Binder as tolerated for the first 2 weeks
-- No heavy lifting or strenuous activities for 4-6 weeks post-op
-- DVT: Lovenox
-- Dispo today versus tomorrow
Original Note:
Today's Communication / Plan
-
Dispo planning
Assessment / Plan
-
Assessment:
Patient is a 53 yo F POD#11 s/p Robotic converted to open total hysterectomy and bilateral oophorectomy with tumor debulking and lymph node resection by pbx wire chief with open primary ventral hernia repair by general surgery
AFVSS
Labs stable
Developed ileus requiring NGT decompression
Continues to pass flatus, tolerating diet advancements
US RLE 05/10- no evidence of DVT
Clinically stable and showing slow signs of improvement with return of bowel function although no BM x2 days
Plan:
-- Continue LRD
-- Bowel regimen
-- Pain control and anti-emetic medication as needed
-- OOB/Ambulate
-- Patient continued on home PO medications
-- Binder as tolerated for the first 2 weeks
-- No heavy lifting or strenuous activities for 4-6 weeks post-op
-- DVT: Lovenox
Clear for discharge later today from GS standpoint if continuing to tolerate diet. Discussed with primary team.
Subjective Data
-
Date of Service: May 13, 2024
Patient seen and examined at bedside with Dr. Salmon. Tolerating diet. Passing a good deal of flatus. No BM x2 days. Denies n/v. Minimal post op discomfort
Objective Data
-
Intake and Output
05/12/24 05/13/24 05/14/24
06:59 06:59 06:59
Intake Total 2640 / 2640 1540 / 1540
Balance 2640 / 2640 1540 / 1540
Intake:
Oral fluids 2640 / 2640 1540 / 1540
Other:
Number of approximated MODERATE 2 3
amounts of urine
Vital Signs
Temp Pulse Resp BP Pulse Ox
99.4 F 75 18 147/56 97
05/13/24 07:00 05/13/24 07:00 05/13/24 07:00 05/13/24 07:00 05/13/24 07:00
Lab Results
05/11/24 05:49
05/11/24 05:49
Calcium 8.6 mg/dl (8.4-10.2) 05/11/24 05:49
Magnesium 1.8 mg/dl (1.6-2.3) 05/08/24 08:43
Total Bilirubin 0.6 mg/dl (0.2-1.3) 05/09/24 06:35
AST 34 U/L (14-36) 05/09/24 06:35
ALT 33 U/L (0-35) 05/09/24 06:35
Alkaline Phosphatase 87 U/L (38-126) 05/09/24 06:35
Total Protein 5.6 g/dl (6.3-8.2) L 05/09/24 06:35
Albumin 3.4 g/dl (3.5-5.0) L 05/09/24 06:35
Physical Exam
-
Gen: NAD
Abd: Soft, ND, non tender, incision sites non-erythematous and non-draining
--- NOTE | 2024-05-13 11:54 | W.PN.HOSP.TC ---
Today's Communication/Plan
-
resume home po meds
dc as per primary
Assessment / Plan
Assessment / Plan
Ms. Nery Samuel is a 53 yo woman with hx complex 18 cm cystic and solic mass from left ovary with CA 125 57, hx multiple leiomyoma and prior history endometriosis now s/p surgery morning of 05/02.
05/02/24
Procedure: Failed attempted robotic assisted TLH BSO, exploratory laparotomy, radical tumor debulking including bilateral salpingo-oophorectomy, modified radical hysterectomy, bilateral pelvic and low aortic lymphadenectomy, resection of right and
left paracolic gutter and pelvic peritoneum, infracolic omentectomy, appendectomy, optimal tumor debulking
Anesthesia: General Endotracheal intubation and tap block
Estimated blood loss: 400 cc
IV fluids: 3000 cc crystalloid
Urine output: 300 cc clear
Complications: None
Left Ovarian Mass now s/p ex lap, radical tumor debulking including bilateral salpingo-oophorectomy, modified radical hysterectomy
Post-op Ileus
-management per Recreation Aide Oncology
-improved symptoms along with BMs and Nausea although st passed Lamictal ill with significant green bilious draiange from NGT
� NG tube removed, adv to LRD - tolerating well
-RUCHI drain removed
-IV Zofran/compazine PRN
-F/u Surg recs
�Binder as tolerated for first 2 weeks
� No heavy lifting or strenuous activity for 4 to 6 weeks postop
Essential Hypertension
-resume BID dosing Losartan
Hypothyroidism
-CIGARETTE MAKING EXAMINER Synthroid
-switch back to home dose
Non-Insulin Dependent Diabetes
-hold CIGARETTE MAKING EXAMINER Metformin for now
-ISS low
-resume back home dose once tolerating po
#few small areas of soft tissue density within the posterior pelvis bilaterally measuring up to 2.5 cm: not definitely seen previously.
-Findings likely represent postoperative inflammatory change, less likely metastatic or residual soft tissue deposits.
-Recommend continued attention on follow-up exams as per Recreation Aide
-*patient can resume all home medications including synthroid, losartan, metformin, MVI, tylenol, vit d at DC without changes to regimen
DVT PPx Lovenox
FULL CODE
Anticipated Discharge: Today
Subjective/Interval History
-
Date of Service: May 13, 2024
No acute events, tolerating low residue diet. Back on regular home medications
Objective Data
-
Vital Signs:
Vital Signs
Temp Pulse Resp BP Pulse Ox
99.4 F 75 18 147/56 97
05/13/24 07:00 05/13/24 07:00 05/13/24 07:00 05/13/24 07:00 05/13/24 07:00
I&O
05/12/24 05/13/24 05/14/24
06:59 06:59 06:59
Intake Total 2640 / 2640 1540 / 1540
Balance 2640 / 2640 1540 / 1540
Review of Systems
-
History Source: Patient
All other systems: Not reviewed unless documented
Data Reviewed
-
Diagnostic Radiology: Report Reviewed by me
CT Scan: Image personally visualized and interpreted and Report Reviewed by me
Labs: Labs Reviewed by me
[2024-05-13 13:02] LABS: Glucose - Point of Care 138 mg/dl (70-99)
[2024-05-13 14:00] VITALS: BP 135/53
--- NOTE | 2024-05-13 14:14 | W.DCSUMMARY ---
Discharge Summary
Discharge Data
Date of Admission: 05/03/24
Date of Discharge: 05/13/24
-
Pending Results: Yes
Additional Pending Results:
final pathology report
Hospital Course
05/02/2024 patient was taken to the OR for robotic assisted TLH BSO and repair of ventral hernia. It was converted to laparotomy to complete staging and closure of ventral hernia Patient was admitted and was recovering well until POD 5 when she
started with nausea and vomiting and developed a post op Ileus and ng tube was placed and made NPO. On po day 8 ileus resolved and NG tube was removed and was able to advance diet .
Discharge Plan
-
Patient Disposition: Home (Routine Discharge)
Discharge Diagnosis/Procedures: Robotic converted to open total hysterectomy and bilateral oophorectomy with tumor debulking and lymph node resection with open primary ventral hernia repair
Condition: Good
Diet: Low Fiber and Diabetic, Carb Controlled
Additional Diets: Stay on a low fiber diet for the next 2-3 weeks and then began adding it back into your diet slowly
Activity: No strenuous activity
Additional Activity: No heavy lifting or strenuous activities for 4 to 6 weeks postoperatively. Use abdominal binder as able for the first 2 to 3 weeks postoperatively.
Bathing Restrictions: OK to Shower
Wound Care: Keep incisions clean and dry. Glue will flake off in 2 to 3 weeks. Steri-Strips will flake off in 2 to 3 weeks. Stitches will dissolve.
Activity Restrictions/Additional Instructions:
There are a few small areas of soft tissue density within the posterior pelvis bilaterally measuring up to 2.5 cm (series 201, image 75), not definitely seen previously: Findings likely represent postoperative inflammatory change, less likely
metastatic or residual soft tissue deposits. Recommend continued attention on follow-up exams.
Instructions: Low Fiber Diet
Referrals:
Marisa Stone MD [Family Provider] -
Linden Salmon MD [Active] - in two to four weeks
Woody Fenton MD [Active] - in one week
()
Additional Discharge Medication Instructions: prescription for Eliquis 2.5 mg bid x 14 days was sent to pharmacy She should use for 2 wks for clot prevention restart all home medications
Prescriptions:
New
Eliquis 2.5 mg Tablet
2.5 mg PO BID Qty: 14 0RF
Continued
multivitamin 1 EACH tablet
1 tab PO DAILY
metformin 500 MG tablet extended release 24 hr
1,500 mg PO QPM
levothyroxine [Synthroid] 100 mcg Tablet
100 mcg PO DAILY
Tylenol
750 mg PO PRN PRN (Reason: discomfort)
Discontinued
losartan [Cozaar] 50 mg Tablet
50 mg PO BID
cholecalciferol (vitamin D3) [Vitamin D3] 25 mcg (1,000 unit) Capsule
25 mcg PO DAILY
Discharge Orders:
Discharge Patient (As Directed); Ordered 05/13/24
Ordered By: Alexandr Strickland
Discharge Date and Time
Print Language: [place]
--- NOTE | 2024-05-13 14:15 | CM ---
Pt for discharge today
Pt reports she has a ride home with family
Plan - anticipate home no needs
--- NOTE | 2024-05-19 14:33 | PN.CDI ---
CDI
- -
CDI:
Physician Documentation Request
Admit Date: 05/03/24 09:41
Dear Doctor Eliceo,
Please review the following and provide your response in the progress notes.
Clinical Indicators: The pathology report indicates endometrioid adenocarcinoma, FIGO grade 2 or 3, with seromucinous features.
Coding guidelines state that we cannot code from a pathology report without physician confirmation.
If you feel this is a clinically relevant diagnosis, can you please document it on the record?
Use of terms such as suspected, likely, concern for, or probable (associated with a specific diagnosis that is being evaluated, monitored, or treated as if it exists) are acceptable and can be coded in the inpatient setting, when documented at the
time of discharge.
Thank you,
HEMA Sherman CCS
Inpatient Litigation Manager
Please use your independent medical judgment in providing your response.
--- NOTE | 2024-06-26 08:54 | W.PN.UPDATE ---
Update Note
Progress Note Update
This patient's pathology report indicates presence of endometrioid. Adenocarcinoma grade 2 arising in the uterus. There is evidence of endometrial intraepithelial neoplasia, there is less than 50% invasion. In addition there is endometrioid
adenocarcinoma grade 2 involving the left tube and ovary, as well as evidence of fragments of endometrial carcinoma involving left pelvic sidewall without lymph node involvement. Multiple other biopsies including omentum, gutter, umbilical scant,
sigmoid colon mesentery, right gutter, appendix, left pelvic limb, as well as other lymph node show any evidence of metastatic disease. NGS testing was completed by [facility] post op on the ovarian tumor and suggests that the origin of this tumor is
actually endometrium. 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
== END 2024-05-13 15:10 | disposition home or self-care (01) | DRG 740 ==
LOC: 2 SOUTH 09:41
PROVIDERS: Internal Medicine; Registered Nurse; Surgery; ADMITTING PHYSICIAN Student in an Organized Health Care Education/Training Program; ATTENDING PHYSICIAN Obstetrics & Gynecology Gynecologic Oncology; FAMILY PHYSICIAN Internal Medicine
PROC: 0DTJ0ZZ Resection of Appendix, Open Approach (ICD-10-PCS; 2024-05-02)
PROC: 07BD0ZZ Excision of Aortic Lymphatic, Open Approach (ICD-10-PCS; 2024-05-02)
PROC: 0DNU0ZZ Release Omentum, Open Approach (ICD-10-PCS; 2024-05-02)
PROC: 8E0W0CZ Robotic Assisted Procedure of Trunk Region, Open Approach (ICD-10-PCS; 2024-05-02)
PROC: 0DBW0ZZ Excision of Peritoneum, Open Approach (ICD-10-PCS; 2024-05-02)
PROC: 0WJG4ZZ Inspection of Peritoneal Cavity, Percutaneous Endoscopic Approach (ICD-10-PCS; 2024-05-02)
PROC: 0UT90ZZ Resection of Uterus, Open Approach (ICD-10-PCS; 2024-05-02)
PROC: 0WQF0ZZ Repair Abdominal Wall, Open Approach (ICD-10-PCS; 2024-05-02)
PROC: 0UT20ZZ Resection of Bilateral Ovaries, Open Approach (ICD-10-PCS; 2024-05-02)
PROC: 0UT70ZZ Resection of Bilateral Fallopian Tubes, Open Approach (ICD-10-PCS; 2024-05-02)
PROC: 0J9800Z Drainage of Abdomen Subcutaneous Tissue and Fascia with Drainage Device, Open Approach (ICD-10-PCS; 2024-05-02)
PROC: 0WJF4ZZ Inspection of Abdominal Wall, Percutaneous Endoscopic Approach (ICD-10-PCS; 2024-05-02)
PROC: 07BC0ZZ Excision of Pelvis Lymphatic, Open Approach (ICD-10-PCS; 2024-05-02)
PROC: 0DTU0ZZ Resection of Omentum, Open Approach (ICD-10-PCS; 2024-05-02)
PROC: 0D9670Z Drainage of Stomach with Drainage Device, Via Natural or Artificial Opening (ICD-10-PCS; 2024-05-07)
DX: C54.1 Malignant neoplasm of endometrium (principal); C79.62 Secondary malignant neoplasm of left ovary; C79.89 Secondary malignant neoplasm of other specified sites; N13.2 Hydronephrosis with renal and ureteral calculous obstruction; D62 Acute posthemorrhagic anemia; Z68.41 Body mass index [BMI] 40.0-44.9, adult; K56.7 Ileus, unspecified; J98.11 Atelectasis; N80.9 Endometriosis, unspecified; K42.9 Umbilical hernia without obstruction or gangrene; D25.2 Subserosal leiomyoma of uterus; N88.8 Other specified noninflammatory disorders of cervix uteri; N70.11 Chronic salpingitis; E66.9 Obesity, unspecified; E03.9 Hypothyroidism, unspecified; N83.291 Other ovarian cyst, right side; E11.9 Type 2 diabetes mellitus without complications; I10 Essential (primary) hypertension; K43.9 Ventral hernia without obstruction or gangrene; K66.0 Peritoneal adhesions (postprocedural) (postinfection); D72.829 Elevated white blood cell count, unspecified; N83.8 Other noninflammatory disorders of ovary, fallopian tube and broad ligament; K31.89 Other diseases of stomach and duodenum; T81.82XA Emphysema (subcutaneous) resulting from a procedure, initial encounter; Y83.8 Other surgical procedures as the cause of abnormal reaction of the patient, or of later complication, without mention of misadventure at the time of the procedure; Y92.239 Unspecified place in hospital as the place of occurrence of the external cause; R11.2 Nausea with vomiting, unspecified; Z79.890 Hormone replacement therapy; Z79.84 Long term (current) use of oral hypoglycemic drugs
CPT/HCPCS: 88304; 88305; 88307; 88311; 88332; 36415; 71045; 74018; 74019; 74022; 74177; 80048; 80053; 82962; 83036; 83735; 85025; 85027; 86850; 86900; 86901; 86920; 88112; 88331; 88341; 88342; 88360; 93005; 93971; 97161; 97530; C1729; C1776; P9045; Q9967

== ENCOUNTER 2024-06-05 06:24 | Day surgery (SDC) | payer BC, SELFPAY ==
[2024-06-05] VITALS (7 sets, daily range): BP systolic 94–139; BP diastolic 41–68; BMI 40.4
[2024-06-05 13:39] LABS: Glucose - Point of Care 113 mg/dl (70-99)
[2024-06-05] MEDS: NORMOSOL-R/PLASMALYTE-A 1000 IV (13:39)
--- NOTE | 2024-06-05 14:30 | W.SUR.PREOP ---
Pre-Operative Surgical Note
-
I have examined this patient prior to the performance of the scheduled procedure.
The patient's condition is unchanged from the time of the current History and
Physical and the patient is able to undergo the scheduled procedure.
Right side marked.
Consent signed.
To OR for right URS/LL/stone extraction/stent placement
D/w patient and mother in preop.
[2024-06-05] MEDS: DETROL LA 4 MG PO (15:59)
[2024-06-05] MEDS: Pyridium 200 MG PO (16:00)
[2024-06-09 12:46] LABS: Stone Analysis Mass 69 mg
== END 2024-06-05 17:06 | disposition home or self-care (01) ==
LOC: SDS 06:24
PROVIDERS: ATTENDING PHYSICIAN Surgery; FAMILY PHYSICIAN Internal Medicine
DX: N13.2 Hydronephrosis with renal and ureteral calculous obstruction (principal)
CPT/HCPCS: 52356; 74018; 76000; 82365; 82962; A4300; C1758; C1769; C1894; C2617

== ENCOUNTER → 2024-06-15 08:21 | Outpatient (REF) | payer BC, SELFPAY ==
[2024-06-13 10:46] VITALS: BMI 40.7
[2024-06-15 08:57] VITALS: BP 148/57; BP_SYST 80
[2024-06-15] MEDS: ANCEF 10 IV (09:03)
[2024-06-15 10:40] VITALS: BP 110/53
== END ==
LOC: RADI 08:21
PROVIDERS: ATTENDING PHYSICIAN Internal Medicine Hematology & Oncology; FAMILY PHYSICIAN Internal Medicine
DX: C54.1 Malignant neoplasm of endometrium (principal); C56.2 Malignant neoplasm of left ovary
CPT/HCPCS: 36561; 76937; 77001; 99152; 99153; C1788

== ENCOUNTER → 2024-09-20 14:08 | Outpatient (REF) | payer BC, SELFPAY | LOC: RAD 14:08 | PROVIDERS: ATTENDING PHYSICIAN Surgery; FAMILY PHYSICIAN Internal Medicine | DX: N20.0 Calculus of kidney (principal) | CPT/HCPCS: 76775 ==

== ENCOUNTER → 2024-10-07 07:58 | Outpatient (REF) | payer BC, SELFPAY | LOC: RCS 07:58 | PROVIDERS: ATTENDING PHYSICIAN Internal Medicine; FAMILY PHYSICIAN Internal Medicine | DX: R06.02 Shortness of breath (principal); I10 Essential (primary) hypertension; I49.3 Ventricular premature depolarization; R00.2 Palpitations | CPT/HCPCS: 93225; 93226; 93306; 93356 ==

== ENCOUNTER → 2024-10-26 07:52 | Outpatient (REF) | payer BC, SELFPAY ==
[2024-10-26 08:15] LABS: % Basophils 0.3 % (0-2); % Eosinophils 1.1 % (0-6); % Immature Granulocytes 0.9 % (0-0.5); % Lymphocytes 23.1 % (20.5-51.1); % Monocytes 11.1 % (1.7-9.3); % Neutrophils 63.5 % (42.2-75.2); Absolute Eosinophils 0.1 10^3/uL (0-0.7); Absolute Immature Granulocytes 0.1 10^3/uL (0-0.05); Absolute Lymphocytes 1.5 10^3/uL (1.2-3.4); Absolute Monocytes 0.7 10^3/uL (0.1-0.6); Absolute Neutrophils 4.2 10^3/uL (1.4-6.5); Hematocrit 32.1 % (37.0-47.0); Hemoglobin 10.9 g/dL (12.0-16.0); Mean Corpuscular Hgb 34.7 pg (27.0-31.0); Mean Corpuscular Volume 102.2 fL (81.0-99.0); Mean Platelet Volume 9.9 fL (7.4-10.4); Platelet Count 114 10^3/uL (130-400); Red Blood Cell Count 3.14 10^6/uL (4.20-5.40); Red Cell Dist. Width 15.7 % (11.5-14.5); White Blood Cell Count 6.6 10^3/uL (4.8-10.8)
[2024-10-26 09:33] LABS: ALT (SGPT) 35 U/L (0-35); AST (SGOT) 28 U/L (14-36); Albumin 4.3 g/dl (3.5-5.0); Alkaline Phosphatase 129 U/L (38-126); Blood Urea Nitrogen 17 mg/dl (7-17); Calcium 9.3 mg/dl (8.4-10.2); Carbon Dioxide 22 mmol/L (22-30); Chloride 107 mmol/L (98-107); Glucose 183 mg/dl (70-99); Potassium 4.3 mmol/L (3.5-5.1); Sodium 141 mmol/L (135-145); Total Bilirubin 0.5 mg/dl (0.2-1.3); Total Protein 6.8 g/dl (6.3-8.2); eGFR > 60.00
== END ==
LOC: OIDL 07:52
PROVIDERS: ATTENDING PHYSICIAN Internal Medicine Hematology & Oncology
DX: K43.9 Ventral hernia without obstruction or gangrene (principal); C56.2 Malignant neoplasm of left ovary; C54.1 Malignant neoplasm of endometrium
CPT/HCPCS: 36415; 80053; 85025

== ENCOUNTER → 2024-11-24 09:27 | Outpatient (REF) | payer BC, SELFPAY | LOC: RAD 09:27 | PROVIDERS: ATTENDING PHYSICIAN Obstetrics & Gynecology Gynecologic Oncology; FAMILY PHYSICIAN Internal Medicine | DX: C56.2 Malignant neoplasm of left ovary (principal); C54.1 Malignant neoplasm of endometrium | CPT/HCPCS: 71260; 74177; Q9967 ==

== ENCOUNTER 2025-01-09 08:10 | Outpatient (RCR) | payer BC, SELFPAY | END 2025-01-09 23:59 | disposition home or self-care (01) | LOC: RPT 08:10 | PROVIDERS: ATTENDING PHYSICIAN Nurse Practitioner Adult Health; FAMILY PHYSICIAN Internal Medicine | DX: R53.81 Other malaise (principal); C55 Malignant neoplasm of uterus, part unspecified; E11.8 Type 2 diabetes mellitus with unspecified complications; R53.0 Neoplastic (malignant) related fatigue; M62.81 Muscle weakness (generalized) | CPT/HCPCS: 97110; 97112; 97140; 97163; 97530 ==

== ENCOUNTER 2025-02-08 12:00 | Outpatient (RCR) | payer BC, SELFPAY | END 2025-02-08 23:59 | disposition home or self-care (01) | LOC: RST 12:00 | PROVIDERS: ATTENDING PHYSICIAN Nurse Practitioner Adult Health; FAMILY PHYSICIAN Internal Medicine | DX: R53.81 Other malaise (principal); C55 Malignant neoplasm of uterus, part unspecified; E11.8 Type 2 diabetes mellitus with unspecified complications; R53.0 Neoplastic (malignant) related fatigue; M62.81 Muscle weakness (generalized) | CPT/HCPCS: 97110; 97112; 97140; 97530 ==

== ENCOUNTER → 2025-02-21 09:38 | Outpatient (REF) | payer BC, SELFPAY | LOC: RAD 09:38 | PROVIDERS: ATTENDING PHYSICIAN Obstetrics & Gynecology Gynecologic Oncology; FAMILY PHYSICIAN Internal Medicine | DX: C56.2 Malignant neoplasm of left ovary (principal); C54.1 Malignant neoplasm of endometrium; K43.9 Ventral hernia without obstruction or gangrene; E03.9 Hypothyroidism, unspecified; I82.409 Acute embolism and thrombosis of unspecified deep veins of unspecified lower extremity | CPT/HCPCS: 71260; 74177; Q9967 ==

== ENCOUNTER 2025-02-22 14:18 | Outpatient (RCR) | payer BC, SELFPAY | END 2025-02-22 23:59 | disposition home or self-care (01) | LOC: RST 14:18 | PROVIDERS: ATTENDING PHYSICIAN Internal Medicine | DX: R41.841 Cognitive communication deficit (principal); R41.89 Other symptoms and signs involving cognitive functions and awareness | CPT/HCPCS: 96125; 97129; 97130 ==

== ENCOUNTER 2025-02-27 11:43 | Outpatient (RCR) | payer BC, SELFPAY | END 2025-02-27 23:59 | disposition home or self-care (01) | LOC: RST 11:43 | PROVIDERS: ATTENDING PHYSICIAN Internal Medicine | DX: R41.841 Cognitive communication deficit (principal); R41.89 Other symptoms and signs involving cognitive functions and awareness | CPT/HCPCS: 97129; 97130 ==

== ENCOUNTER → 2025-03-14 12:24 | Outpatient (REF) | payer BC, SELFPAY ==
[2025-03-14 12:48] VITALS: BP 140/66; BP_SYST 77
[2025-03-14 13:39] VITALS: BP 131/63
== END ==
LOC: RADI 12:24
PROVIDERS: ATTENDING PHYSICIAN Nurse Practitioner Adult Health; FAMILY PHYSICIAN Internal Medicine
DX: Z45.2 Encounter for adjustment and management of vascular access device (principal); C54.1 Malignant neoplasm of endometrium; C56.2 Malignant neoplasm of left ovary
CPT/HCPCS: 36590; 77001

== ENCOUNTER 2025-03-20 12:16 | Outpatient (RCR) | payer BC, SELFPAY | END 2025-03-20 23:59 | disposition home or self-care (01) | LOC: RST 12:16 | PROVIDERS: ATTENDING PHYSICIAN Nurse Practitioner Adult Health; FAMILY PHYSICIAN Internal Medicine | DX: R53.81 Other malaise (principal); R41.89 Other symptoms and signs involving cognitive functions and awareness (principal); C55 Malignant neoplasm of uterus, part unspecified; R41.841 Cognitive communication deficit; R41.9 Unspecified symptoms and signs involving cognitive functions and awareness; E11.8 Type 2 diabetes mellitus with unspecified complications; R53.0 Neoplastic (malignant) related fatigue; M62.81 Muscle weakness (generalized) | CPT/HCPCS: 97110; 97112; 97140; 97530 ==

== ENCOUNTER → 2025-04-09 12:02 | Outpatient (REF) | payer BC, SELFPAY ==
--- NOTE | 2025-04-09 12:16 | W.PN.UPDATE ---
Update Note
Progress Note Update
54 yo femlae s/p Port removal on 03/14/25. Pt with suture noted at the distal end of the incision. Site is otherwise CDI. NO erythema or fluctuance. No sign of infection. Suture removed without difficulty.
== END ==
LOC: RADI 12:02
PROVIDERS: ATTENDING PHYSICIAN Physician Assistant; FAMILY PHYSICIAN Internal Medicine
DX: Z48.02 Encounter for removal of sutures (principal)

== ENCOUNTER 2025-04-17 10:47 | Outpatient (RCR) | payer BC, SELFPAY | END 2025-04-17 23:59 | disposition home or self-care (01) | LOC: RST 10:47 | PROVIDERS: ATTENDING PHYSICIAN Nurse Practitioner Adult Health; FAMILY PHYSICIAN Internal Medicine | DX: R41.9 Unspecified symptoms and signs involving cognitive functions and awareness (principal); R41.841 Cognitive communication deficit; R41.89 Other symptoms and signs involving cognitive functions and awareness; R53.81 Other malaise; C55 Malignant neoplasm of uterus, part unspecified; E11.8 Type 2 diabetes mellitus with unspecified complications; R53.0 Neoplastic (malignant) related fatigue; M62.81 Muscle weakness (generalized) | CPT/HCPCS: 97110; 97112; 97530 ==

== ENCOUNTER → 2025-04-27 11:14 | Outpatient (REF) | payer BC, SELFPAY | LOC: WDC 11:14 | PROVIDERS: ATTENDING PHYSICIAN Internal Medicine | DX: Z12.39 Encounter for other screening for malignant neoplasm of breast (principal); Z12.31 Encounter for screening mammogram for malignant neoplasm of breast | CPT/HCPCS: 77063; 77067 ==

== ENCOUNTER 2025-05-17 06:24 | Day surgery (SDC) | payer BC, SELFPAY ==
[2025-05-17 10:44] LABS: Glucose - Point of Care 170 mg/dl (70-99)
== END 2025-05-17 12:18 | disposition home or self-care (01) ==
LOC: GI 06:24
PROVIDERS: ATTENDING PHYSICIAN Internal Medicine
DX: Z12.11 Encounter for screening for malignant neoplasm of colon (principal); D12.3 Benign neoplasm of transverse colon; K57.30 Diverticulosis of large intestine without perforation or abscess without bleeding; K56.2 Volvulus; Z86.0101 Personal history of adenomatous and serrated colon polyps
CPT/HCPCS: 45385; 82962; 88305

== ENCOUNTER 2025-07-10 12:33 | Outpatient (RCR) | payer BC, SELFPAY | END 2025-07-10 23:59 | disposition home or self-care (01) | LOC: RST 12:33 | PROVIDERS: ATTENDING PHYSICIAN Nurse Practitioner Adult Health; FAMILY PHYSICIAN Internal Medicine | DX: R41.9 Unspecified symptoms and signs involving cognitive functions and awareness (principal); R53.81 Other malaise (principal); C55 Malignant neoplasm of uterus, part unspecified; R41.841 Cognitive communication deficit; Z73.6 Limitation of activities due to disability; R41.89 Other symptoms and signs involving cognitive functions and awareness; E11.8 Type 2 diabetes mellitus with unspecified complications; R53.0 Neoplastic (malignant) related fatigue; M62.81 Muscle weakness (generalized) | CPT/HCPCS: 97014; 97112; 97530 ==

== ENCOUNTER → 2025-08-02 08:44 | Outpatient (REF) | payer BC, SELFPAY | LOC: RAD 08:44 | PROVIDERS: ATTENDING PHYSICIAN Obstetrics & Gynecology Gynecologic Oncology; FAMILY PHYSICIAN Internal Medicine | DX: C56.2 Malignant neoplasm of left ovary (principal); K43.9 Ventral hernia without obstruction or gangrene; C54.1 Malignant neoplasm of endometrium; E03.9 Hypothyroidism, unspecified; I82.409 Acute embolism and thrombosis of unspecified deep veins of unspecified lower extremity | CPT/HCPCS: 71260; 74177; Q9967 ==

== ENCOUNTER 2025-08-10 07:05 | Outpatient (RCR) | payer BC, SELFPAY | END 2025-08-10 09:56 | disposition home or self-care (01) | LOC: RST 07:05 | PROVIDERS: ATTENDING PHYSICIAN Nurse Practitioner Adult Health; FAMILY PHYSICIAN Internal Medicine | DX: R53.81 Other malaise (principal); C55 Malignant neoplasm of uterus, part unspecified; Z73.6 Limitation of activities due to disability; E11.8 Type 2 diabetes mellitus with unspecified complications; R53.0 Neoplastic (malignant) related fatigue; M62.81 Muscle weakness (generalized); R41.9 Unspecified symptoms and signs involving cognitive functions and awareness; R41.841 Cognitive communication deficit; R41.89 Other symptoms and signs involving cognitive functions and awareness | CPT/HCPCS: 97110; 97530 ==